=== PATIENT | male | born 1950 | race Caucasian/White ===

== ENCOUNTER 2021-12-29 08:31 | Outpatient (CLI) | payer MEDICARE, SELFPAY ==
--- NOTE | 2021-12-29 08:37 | RAD_ITS ---
STUDY: X-RAY - ABDOMEN/PELVIS REASON FOR EXAM: Male, 71 years old. Constipation TECHNIQUE: Single AP view of the abdomen / pelvis. COMPARISON: None. FINDINGS: There is a moderate amount of colonic fecal material. A single round density is seen in the cecum. The visualized liver, spleen and kidneys are grossly normal in size and morphology. There are calcified phleboliths in the pelvis. Normal visualized osseous structures. RAD/Abdomen Single View IMPRESSION: A circular marker is seen in the cecum. Electronically Signed: Elieser Maldonado MD at 9:20 EST ,
== END 2021-12-29 23:59 | disposition home or self-care (01) ==
PROVIDERS: PCP Family Medicine; Referring Provider Internal Medicine Gastroenterology; Visit Provider Internal Medicine Gastroenterology
DX: K59.00 Constipation, unspecified (principal)
CPT/HCPCS: 74018

== ENCOUNTER 2021-12-31 08:08 | Outpatient (CLI) | payer MEDICARE, SELFPAY ==
--- NOTE | 2021-12-31 08:25 | RAD_ITS ---
STUDY: X-RAY - ABDOMEN/PELVIS REASON FOR EXAM: Male, 71 years old. Estimation. TECHNIQUE: Two AP supine views of the abdomen and pelvis. COMPARISON: 12/29/2021. FINDINGS: Normal visualized lung bases. There is an unremarkable bowel gas pattern. Air is seen throughout the colon without evidence of increased feces. There is no small bowel dilatation or obstruction. There is no demonstrated free abdominal air. The visualized liver, spleen and kidneys are grossly normal in size and morphology. Phleboliths are again seen in the left pelvis. The small Sitz marker marker noted in the cecum on the previous study is no longer visualized. Normal visualized osseous structures. RAD/Abdomen Single View IMPRESSION: 1. No evidence of constipation or other acute intra-abdominal process. Electronically Signed: Andrea Hackett DO at 17:28 [facility] ,
== END 2021-12-31 23:59 | disposition home or self-care (01) ==
PROVIDERS: PCP Family Medicine; Referring Provider Internal Medicine Gastroenterology; Visit Provider Internal Medicine Gastroenterology
DX: K59.00 Constipation, unspecified (principal)
CPT/HCPCS: 74018

== ENCOUNTER 2022-02-02 11:51 | Day surgery (SDC) | payer MEDICARE, SELFPAY ==
--- NOTE | 2022-02-02 | COLBX_PTH ---
PATIENT: ROLANDO JETT LOC: EN U#:[id number] AGE/SX: 71/M ROOM: RE02/02/[address]: Dr. Isai Gutiérrez DO : 1950 BED: DIS: 02/02/2022 SPEC #: [id number] RECD: 02/02/22 14:34 STATUS: LACIE NBA #: [id number] ASHA: 02/02/22 00:[address]: Isai Gutiérrez DEPT: SURGICAL PATHOLOGY RECD BY: Daniel Hdz ENTERED: 02/03/22 07:54 SP TYPE: COLON BX OTHR DR: Dr. Roberto Gallo MD Tissues: A - Transverse colon B - COLON BIOPSY C - Sigmoid colon biopsy Procedures: Surgery Specimen Level IV HEADER OPERATION: Colonoscopy (MAC), polypectomy PRE-OP DIAGNOSIS: Constipation, history of colon polyps TISSUE SUBMITTED: A ? Transverse colon polyp, B ? Splenic flexure polyp, C ? Sigmoid polyp MICROSCOPIC DIAGNOSIS A. Transverse colon polyp, biopsy: Fragments of tubular adenoma. B. Colonic polyp at hepatic flexure, biopsy: Fragments of tubular adenoma. C. Sigmoid colon polyp, biopsy: Tubular adenoma. AM:chris 02/04/2022 MICROSCOPIC DESCRIPTION Slides are reviewed. GROSS DESCRIPTION A - Received in fixative is one container labeled with the patient's name and designated transverse colon polyp. The specimen consists of one irregular fragment of light jacobson soft tissue that measures 0.6 x 0.2 x 0.1 cm. The specimen is totally submitted in one cassette. B - Received in fixative is one container labeled with the patient's name and designated splenic flexure polyp. The specimen consists of multiple irregular fragments of light jacobson soft tissue that in aggregate measure 1 x 0.7 x 0.1 cm. The specimen is totally submitted in one cassette. C - Received in fixative is one container labeled with the patient's name and designated sigmoid polyp. The specimen consists of one irregular fragment of light jacobson soft tissue that measures 0.5 x 0.3 x 0.2 cm. The specimen is totally submitted in one cassette. / AM:chris 02/03/2022 TC:5 CPT: 98502 x3
[2022-02-02 12:20] VITALS: BP 146/76; PULSE 59; RESP 18; TEMP 36.4; O2SAT 100; BMI 31.1
[2022-02-02] MEDS: Lactated Ringers 1,000 ML 15 ML IV (12:30)
--- NOTE | 2022-02-02 12:34 | PCM.HP.BLA ---
History and Physical Date of Admission: 02/02/22 71 M who presents to the office today to establish care. Unfortunately he underwent a colonoscopy for surveillance purposes on 04/26/2021. He had 6 polyps which were removed. One of them was not completely removed. It was a single flat polyp 1 cm in diameter in the proximal transverse colon that was attempted to be removed with endoscopic lift procedure. Unfortunately he woke up during the procedure when he could not be sedated anymore due to his very low heart rate and he continued to do the procedure despite the anesthesiologist tell him not to. He has been having some intermittent abdominal pain sometimes in the midepigastric region. He gets gas buildup after eating. Most of the time he has trouble starting or finishing a meal due to the fact that he gets really bloated. He is also been having some problems with his bowels. He has been having trouble getting stool started. He is resorted to having to take a laxative and he never evacuates. He went to a chiropractor who told her that his symptoms were likely secondary to his back. He has no previous back injuries but he does get back pain. He underwent a few adjustments and it helped for about an hour but the symptoms came back right afterwards. He takes stool softener on a daily basis for fiber Gummies. He does not take any MiraLAX. He does not take any other fiber laxatives. ROS Const Constitutional: No anorexia, body ache, chills, excessive sweating, fatigue, fever(s), frequent falls, headache(s), decreased energy, malaise, night sweats, snoring, weakness, weight change, sleep problems, abnormal sleep pattern, change in appetite or other Eyes Eyes: No blurry vision, change in vision, double vision, irritation, discharge, vision loss, dry eyes, bulging eyes, floaters, visual disturbances, eye pain, Light sensitivity, spots in vision, tunnel vision or other ENT ENT: No abnormal hearing, ear or mastoid pain, ear discharge, ear pressure, hearing loss, tinnitus, dizziness/vertigo, balance problems, nosebleed/epistaxis, nasal congestion, nasal obstruction, nose pain, sinus pressure, sinus pain, nasal discharge, post nasal drip, headache(s), facial pain, dental pain, dry mouth, difficulty swallowing, bad breath, hoarseness, lip swelling, mouth lesions, mouth pain, neck pain, sore throat, tongue swelling, throat swelling or other Resp Respiratory: No cough, change in phlegm color, chest congestion, excessive phlegm production, hemoptysis, pain on inspiration, shortness of breath, pain with cough, snoring, stridor, wheezing or other Cardio Cardiology: No chest pain at rest, excessive sweating, shortness of breath, dyspnea on exertion, generalized swelling, irregular heart rhythm, lightheadedness, orthopnea, radiating jaw, neck or arm pain, fast heart rate, slow heart rate, palpitations, difficulty breathing or other Gastro GI: Positive for abdominal pain, bloating, change in bowel habits, constipation and excessive flatus; No difficulty swallowing Genitourinary Male: No difficulty urinating, burning urination, painful urination, urinary incontinence, urinary frequency, urinary urgency, urinary hesitancy, urinary retention, blood in urine, Frequent nighttime urination/ nocturia, post void dribbling, suprapubic fullness, side pain, sexual problems, genital lesions, genital itching, erectile dysfunction, penile discharge, difficulty with ejaculations, blood in semen, scrotal swelling, testicle lump, testicle pain or other Musc Musculoskeletal: Positive for back pain, stiffness and Arthritis; No abnormal gait, neck pain, numbness, tingling or restless legs Skin Skin: No acne, hair loss in leg, change in hair, nail changes, boil, change in skin color, dry skin, redness, excessive hair growth, yellowing of the eye, lesions, itchy eyes, rash, skin pain, skin ulcer, sores, skin swelling, wounds or other Breast Breast: No change in breast shape, breast lump, breast pain, breast skin changes, breast swelling, nipple discharge or other Neuro Neurology: No abnormal gait, abnormal hearing, abnormal movements, abnormal speech, behavioral changes, confusion, unsteady gait/balance, dizziness, weakness, frequent falls, headache(s), lack of coordination, loss of vision, memory loss, numbness, tingling, visual disturbances, restless legs, fainting, tremor(s), Increased tone in limbs, paralysis, seizures or other Psych Psychiatric: No abnormal sleep pattern, No lack of enjoyment, No anxiety, No behavioral changes, No change in appetite, No confusion, No depression, No difficulty concentrating, No hopelessness, No irritability, No memory loss, No mood swings, No panic attacks, No paranoia, No Thoughts of harming yourself/Others, No hallucinations, No Behavioral Problems, No Compulsive Behavior, No hyperactivity, No inattentiveness, No obsessions/compulsions, No Temper Tantrums, No suicidal ideation and No other Endo Endocrine: No excessive sweating, fatigue, weight change or other Aller/Imm Allergy/Immunologic: No itchy eyes, lip swelling, throat swelling, tongue swelling or wheezing Exam Const General: cooperative and comfortable Nutritional Appearance: average body habitus and well nourished [facility] Head: normal to inspection Ears: hearing grossly normal bilaterally Nose: external nose normal Face and sinus: normal facial exam Mouth: oral mucosae normal Throat: posterior oropharynx normal Eyes General: appearance normal, both eyes and all related structures Neck Neck: normal visual inspection Chest Chest palpation & inspection: normal inspection of the chest and normal palpation of entire chest wall Resp Effort & Inspection: normal respiratory effort Auscultation: Bilateral: Clear to Auscultation Cardio Palpation: normal PMI Rate: regular rate Rhythm: regular rhythm GI Inspection: normal to inspection and other (Ventral hernia) Auscultation: normal bowel sounds Percussion: normal to percussion Palpation: no hepatosplenomegaly Skin General: no rashes or lesions noted Neuro General: patient alert Extrem General: normal to inspection Psych Affect: normal affect Assessment and Plan Assessment and Plan (1) Constipation: Status: Acute Orders: Orders: Abdomen Single View 2 Days Plan - Dr. Alex Friend, DO: We will perform a sits marker test on him to see if he has slow transit constipation or pelvic floor dysfunction. I suspect that this low transit constipation as he can go to the bathroom he just takes a lot of osmotic laxatives. (2) History of colon polyps: Status: Acute Plan - Dr. Alex Friend, DO: He will need to have repeat colonoscopy within the next year. I told her a submucosal lift in order to remove. He has had antibiotic. That it is dangerous to leave a partially remove the polyp in his colon that needed Plan Details Other Medications: New: lidocaine 5% leave on most painful area for up to 12 hrs 3 patches topical DAILY 15 ea 2RF I have re-examined the patient. There are no clinical changes since date of exam.
[2022-02-02 14:25] VITALS: BP 130/61; BP 146/76; PULSE 86; RESP 16
[2022-02-02 14:30] VITALS: BP 133/63; BP 146/76; PULSE 82; RESP 16; O2SAT 100
[2022-02-02 14:35] VITALS: BP 132/71; BP 146/76; PULSE 80; RESP 17; O2SAT 100
[2022-02-02 14:39] VITALS: BP 127/64; BP 146/76; PULSE 76; RESP 16; TEMP 36.8; O2SAT 98
[2022-02-02 14:51] VITALS: BP 146/76
--- NOTE | 2022-02-02 15:01 | OP.CCLET_ITS ---
08/17/2022 Roberto Gallo Md Re : Colonoscopy procedure for Maxi Ji Dear Cleo This procedure was performed on Wednesday, February 02, 2022. My impressions and recommendations are as follows: Impressions : - One 9 mm polyp in the sigmoid colon, removed with a hot snare. Resected and retrieved. - One 15 mm polyp at the splenic flexure, removed with a hot snare. Resected and retrieved. Injected. Tattooed. - One 4 mm polyp in the ascending colon, removed with a jumbo cold forceps. Resected and retrieved. - Diverticulosis in the sigmoid colon and in the descending colon. Recommendations : - Discharge patient to home. - Resume previous diet. - Continue present medications. - Await pathology results. - Repeat colonoscopy in 3 years for surveillance. - Return to GI office. My findings are described in the full procedure note, which is enclosed. If I can be of further assistance, please feel free to contact me at . Sincerely, Isai Gutiérrez, 02/02/2022 3:00:21 PM This report has been signed electronically.
--- NOTE | 2022-02-02 15:01 | OP.COLON_ITS ---
Patient Name: Maxi Ji Procedure Date: 02/02/2022 1:34 PM Date of : 1950 Age: 71 Procedure: Colonoscopy Indications: Follow-up for history of adenomatous polyps in the colon Providers: Isai Gutiérrez DO Medicines: See the Anesthesia note for documentation of the administered medications Patient Profile: This is a 71 year old male. Refer to note in patient chart for documentation of history and physical. Last Colonoscopy: within the past 6 months. Complications: No immediate complications. Procedure: Pre-Anesthesia Assessment: - Prior to the procedure, a History and Physical was performed, and patient medications and allergies were reviewed. The patient is competent. The risks and benefits of the procedure and the sedation options and risks were discussed with the patient. All questions were answered and informed consent was obtained. Patient identification and proposed procedure were verified by the physician in the pre-procedure area. Mental Status Examination: alert and oriented. Airway Examination: normal oropharyngeal airway and neck mobility. Respiratory Examination: clear to auscultation. CV Examination: normal. Prophylactic Antibiotics: The patient does not require prophylactic antibiotics. Prior Anticoagulants: The patient has taken no previous anticoagulant or antiplatelet agents. ASA Grade Assessment: II - A patient with mild systemic disease. After reviewing the risks and benefits, the patient was deemed in satisfactory condition to undergo the procedure. The anesthesia plan was to use moderate sedation / analgesia (conscious sedation). Immediately prior to administration of medications, the patient was re-assessed for adequacy to receive sedatives. The heart rate, respiratory rate, oxygen saturations, blood pressure, adequacy of pulmonary ventilation, and response to care were monitored throughout the procedure. The physical status of the patient was re-assessed after the procedure. After I obtained informed consent, the scope was passed under direct vision. Throughout the procedure, the patient's blood pressure, pulse, and oxygen saturations were monitored continuously. The colonoscope was introduced through the anus and advanced to the cecum, identified by appendiceal orifice and ileocecal valve. The colonoscopy was performed without difficulty. The patient tolerated the procedure well. The quality of the bowel preparation was good. Moderate Sedation: Moderate (conscious) sedation was administered by the endoscopy nurse and supervised by the endoscopist. The following parameters were monitored: oxygen saturation, heart rate, blood pressure, and response to care. Total physician intraservice time was 15 minutes. Scope In: 1:45:50 PM Scope Withdrawal Time 0 hours 26 minutes 33 seconds Scope Out: 2:19:40 PM Total Procedure Duration Time 0 hours 33 minutes 50 seconds Findings: The perianal and digital rectal examinations were normal. A 9 mm polyp was found in the sigmoid colon. The polyp was sessile. The polyp was removed with a hot snare. Resection and retrieval were complete. Verification of patient identification for the specimen was done. Estimated blood loss was minimal. A 15 mm polyp was found in the splenic flexure. The polyp was sessile. Area was successfully injected with 5 mL of a 1:10,000 solution of epinephrine for lesion assessment, and this injection appeared to lift the lesion adequately. The polyp was removed with a hot snare. Resection and retrieval were complete. Area was tattooed with an injection of 0.4 mL of Ronda ink. A 4 mm polyp was found in the ascending colon. The polyp was sessile. The polyp was removed with a jumbo cold forceps. Resection and retrieval were complete. Verification of patient identification for the specimen was done. Estimated blood loss was minimal. A few small-mouthed diverticula were found in the sigmoid colon and descending colon. Impression: - One 9 mm polyp in the sigmoid colon, removed with a hot snare. Resected and retrieved. - One 15 mm polyp at the splenic flexure, removed with a hot snare. Resected and retrieved. Injected. Tattooed. - One 4 mm polyp in the ascending colon, removed with a jumbo cold forceps. Resected and retrieved. - Diverticulosis in the sigmoid colon and in the descending colon. Recommendation: - Discharge patient to home. - Resume previous diet. - Continue present medications. - Await pathology results. - Repeat colonoscopy in 3 years for surveillance. - Return to GI office. Procedure Code(s): --- Professional --- 40625, Colonoscopy, flexible; with removal of tumor(s), polyp(s), or other lesion(s) by snare technique 14004, Colonoscopy, flexible; with directed submucosal injection(s), any substance 02016, 59, Colonoscopy, flexible; with biopsy, single or multiple 26099, 59, Moderate sedation services provided by the same physician or other qualified health palliative care coordinator performing the diagnostic or therapeutic service that the sedation supports, requiring the presence of an independent trained observer to assist in the monitoring of the patient's level of consciousness and physiological status; initial 15 minutes of intraservice time, patient age 5 years or older CPT copyright 2017 [employer]. All rights reserved. The codes documented in this report are preliminary and upon cloth neutralizer review may be revised to meet current compliance requirements. Isai Gutiérrez DO 02/02/2022 3:00:21 PM This report has been signed electronically. Number of Addenda: 1 Note Initiated On: 02/02/2022 1:34 PM Addendum Number: 1 Addendum Date: 08/17/2022 6:26:28 AM MAC was used as sedation for this procedure. Isai Gutiérrez DO 08/17/2022 6:26:33 AM This report has been signed electronically.
== END 2022-02-02 23:59 | disposition home or self-care (01) ==
LOC: EN 11:54 → AC 11:54
PROVIDERS: PCP Family Medicine; Referring Provider Family Medicine; Visit Provider Internal Medicine Gastroenterology
PROC: 0DJD8ZZ Inspection of Lower Intestinal Tract, Via Natural or Artificial Opening Endoscopic (ICD-10-PCS; CPT 45378; principal; 2022-02-02 12:55)
DX: K57.30 Diverticulosis of large intestine without perforation or abscess without bleeding (principal); D12.3 Benign neoplasm of transverse colon; D12.5 Benign neoplasm of sigmoid colon; Z86.010 Personal history of colon polyps
CPT/HCPCS: 45385; 45381; 45380; 88305; J7120; A4648; J2405; J3490

== ENCOUNTER 2022-02-04 10:21 | Emergency (ER) | payer MEDICARE, SELFPAY ==
[2022-02-04 10:21] VITALS: BP 125/62; PULSE 67; RESP 18; TEMP 36.6; O2SAT 99; BMI 31.0
--- NOTE | 2022-02-04 11:41 | EX.ED.DYSGE1 ---
HPI History of Present Illness Chief Complaint: Abd Pain Narrative Narrative: Patient presents with difficulty urinating after colonoscopy. He has very little urine output and when he goes to the bathroom he does not feel like he empties fully. He has mild suprapubic pain. He has no back pain. He has no epigastric pain he has no shoulder pain. He recently had a work-up and appears he has some bladder dysfunction but no prostate issues. [facility] Medical History Alcohol use Arthritis Atrial fibrillation Back pain Back problem Cardiology follow-up encounter Constipation Former smoker Gastrointestinal problem High blood pressure History of atrial fibrillation History of colon polyps History of echocardiogram History of stress test Hypertension Home Medications amiodarone 200 mg tablet 200 mg PO BID 12/27/21 [History Last Taken Unknown] lidocaine 5 % topical patch 3 patch TOPICAL DAILY #15 ea 12/27/21 [Rx Last Taken Unknown] losartan 100 mg tablet 100 mg PO DAILY 12/27/21 [History Last Taken 02/02/22 06:00] metoprolol succinate 25 mg tablet,extended release 24 hr 25 mg PO DAILY 12/27/21 [History Last Taken Unknown] vibegron 75 mg tablet 75 mg PO DAILY 12/27/21 [History Last Taken Unknown] tamsulosin 0.4 mg capsule 0.4 mg PO DAILY #14 cap 02/03/22 [Rx Last Taken Unknown] Allergy/AdvReac Type Severity Reaction Status Date / Time No Known Allergies Allergy Verified 02/04/22 11:45 Family History Other No pertinent family history Surgical History Amputation of left thumb H/O arthroscopy of left knee History of arthroscopy of right knee History of skin graft Social History Smoking Status: Former smoker alcohol intake: current details: Beer 2 -3 a day substance use type: does not use what type of physical activity do you participate in: other details: leg stretches - toe touching frequency: 3-4 times per week ROS ROS ED ROS Narrative Past medical history: Reviewed Medications: Reviewed Social history: Noncontributory Review of systems: All systems negative except as indicated General: No fever Eyes: No visual changes ENT: No upper airway congestion, normal voice Neck: No neck pain Cardiovascular: No chest pain Respiratory: No shortness of breath or cough Gastrointestinal: As in HPI Genitourinary: As in HPI Musculoskeletal: Denies myalgias no difficulty with ambulation Skin: No rash Neurological: No memory loss, confusion or any focal weakness Psych: No recent behavioral changes Hematologic: No easy bleeding or easy bruising EXAM Physical Exam Narrative Exam Narrative: Physical exam General: Well nourished, Well developed, No Acute Distress Head: Normocephalic, Atraumatic Eyes: Conjunctiva not pale ENT: Moist mucous membranes Neck: Supple, Nontender, No lymphadenopathy Cardiovascular: Regular rate, Regular rhythm Respiratory: No distress, CTA bilaterally Abdomen: Soft, Nontender, does not have a suprapubic mass. No guarding or rebound. Normal external genitalia. Back: Nontender, Normal Inspection. Negative for: CVA tenderness Extremities: Nontender, No edema Skin: Normal color, No rash Neurological: Alert, Normal Strength, Normal Sensation Psychological: Normal affect Const Vital Signs: 02/04/22 10:21 02/04/22 12:29 Temperature 97.9 F Temperature Source Temporal Pulse Rate 67 Respiratory Rate 18 18 Blood Pressure 125/62 H Blood Pressure Mean 83 Pulse Ox 99 Oxygen Delivery Method Room Air MDM MDM MDM Narrative Medical decision making narrative: Patient has no retention on bladder scan. His urinalysis is overall unremarkable. He has a normal KUB. I reexamined him he has no abdominal pain. Patient be discharged in stable condition. Lab Data Labs: Laboratory Results - last 24 hr 02/04/22 13:15 Urine Color Yellow Urine Clarity Clear Urine pH 5.0 Ur Specific [place] 1.020 Urine Protein Negative Urine Glucose (UA) Normal Urine Ketones Negative Urine Occult Blood Negative Urine Nitrite Negative Urine Bilirubin Negative Urine Urobilinogen Normal Ur Leukocyte Esterase 25 H Urine RBC 0 SEEN Urine WBC 0 SEEN Ur Squamous Epith Cells 0 SEEN Urine Bacteria 0 SEEN Urine Mucus 0 SEEN Radiography Diagnostic Testing: Clinical Impression(s) from Imaging Studies KUB X-Ray 02/04/22 12:35 IMPRESSION: Normal x-ray examination of the abdomen and pelvis. Stable appearance. Electronically Signed: Glen Nettles MD at 12:53 EDT Reading Location ID and State: [facility] / [place] , Service support , X-ray read by me and radiologist is negative for any acute process Discharge Plan Triage Chief Complaint: Abd Pain Other Complaint: Complaint ED Provider: Maxi Jones Dx/Rx/DC Orders Clinical Impression: Dysuria Instructions: ED Dysuria, Uncertain Cause (Adult) Prescriptions: No Action metoprolol succinate 25 mg tablet extended release 24 hr 25 mg PO DAILY RF: 0 losartan 100 mg tablet 100 mg PO DAILY RF: 0 amiodarone 200 mg tablet 200 mg PO BID RF: 0 Gemtesa 75 mg tablet 75 mg PO DAILY RF: 0 lidocaine 5 % adhesive patch,medicated 3 patch topical DAILY Qty: 15 RF: 2 tamsulosin [Flomax] 0.4 mg capsule 0.4 mg PO DAILY Qty: 14 RF: 0 Primary Care Provider: Roberto Gallo Referrals: Roberto Gallo MD [Primary Care Provider] - 2 Days Disposition Disposition: Home, Self Care
[2022-02-04 12:29] VITALS: RESP 18
--- NOTE | 2022-02-04 12:35 | RAD_ITS ---
STUDY: X-RAY - ABDOMEN/PELVIS REASON FOR EXAM: Male, 71 years old. Constipation TECHNIQUE: Two AP supine views of the abdomen and pelvis. COMPARISON: December 31, 2021. FINDINGS: Normal visualized lung bases. There is an unremarkable bowel gas pattern. There is no demonstrated free abdominal air. There are calcified phleboliths in the pelvis. Normal visualized osseous structures. RAD/Abdomen Single View IMPRESSION: Normal x-ray examination of the abdomen and pelvis. Stable appearance. Electronically Signed: Glen Nettles MD at 12:53 EDT ,
[2022-02-04 13:23] LABS: Bacteria 0 SEEN /hpf (None Seen); Mucous, Urine 0 SEEN /hpf (<or=2+); Red Blood Cells-Urine 0 SEEN /hpf (0-5); Squamous Epithelial Cells - UA 0 SEEN /hpf (0-5); White Blood Cells 0 SEEN /hpf (0-5)
[2022-02-04 13:25] LABS: Color, Urine Yellow (Yellow); Glucose, Dipstick Normal (Normal); Ketone-Dipstick Negative (Negative); Leukocyte Esterase-Dipstick 25 /ul (Negative); Nitrite-Dipstick Negative (Negative); Occult Blood-Urine Negative /ul (Negative); Protein-Dipstick Negative (Negative); Urine Bilirubin Dipstick Negative (Negative); Urine Clarity Clear (Clear); Urine Urobilinogen Normal (Normal)
[2022-02-04 14:23] VITALS: BP 132/72; PULSE 67; RESP 16; TEMP 36.9; O2SAT 98
[2022-02-04 14:26] VITALS: RESP 18
== END 2022-02-04 14:26 | disposition home or self-care (01) ==
PROVIDERS: Emergency Provider Emergency Medicine; PCP Family Medicine; Visit Provider Emergency Medicine
DX: R30.0 Dysuria (principal); I48.91 Unspecified atrial fibrillation; R10.2 Pelvic and perineal pain; I10 Essential (primary) hypertension; Z79.899 Other long term (current) drug therapy; M19.90 Unspecified osteoarthritis, unspecified site; Z87.891 Personal history of nicotine dependence
CPT/HCPCS: 74018; 81001; 99282

== ENCOUNTER 2022-07-09 17:24 | Emergency (ER) | payer MEDICARE, SELFPAY ==
[2022-07-09] VITALS (7 sets, daily range): BP systolic 118–168; BP diastolic 70–78; PULSE 58–71; RESP 15–16; TEMP 36.6; O2SAT 97–98; BMI 33.3
--- NOTE | 2022-07-09 17:39 | EKG12_ITS ---
Test Reason : CP Blood Pressure : / mmHG Vent. Rate : 065 BPM Atrial Rate : 065 BPM P-R Int : 190 ms QRS Dur : 104 ms QT Int : 462 ms P-R-T Axes : 033 041 021 degrees QTc Int : 480 ms Normal sinus rhythm Prolonged QT Abnormal ECG Confirmed by GIFTY KNIGHT, ROLANDO ([id number]), photograph editor INDIO NAVARRO ([id number]) on 07/12/2022 7:58:45 AM Referred By: GAGE Confirmed By:ROLANDO DURBIN MD
--- NOTE | 2022-07-09 17:41 | NURSING ---
NO OLD EKGS
--- NOTE | 2022-07-09 17:41 | ED.VIS.CHEST ---
HPI History of Present Illness Chief Complaint: Chest Pain Detail of Chief Complaint: Chest pain started approximately 8 AM Informant: patient Narrative Narrative: Patient presents to the emergency department with complaint of chest pain that started around 8 AM this morning while at rest. He describes a dull ache and pressure that tends to radiate towards her left shoulder. He denies radiation to the neck or jaw. Patient denies shortness of breath. He denies diaphoresis. He denies nausea or vomiting. Patient tells me the pains are continuously. He rates it a 5 out of 10. Patient states that he did mow his lawn today on the riding mower and activity did not seem exacerbated. Patient thinks he had discomfort like this 1 other time but no etiology was found for it. There is no significant family history of heart disease. Patient does have history of hypertension and history of A. fib. He is not anticoagulated. He denies recent travel or surgery. He denies history of PE or DVT. Prior Similar Symptoms: Yes [facility] Medical History Alcohol use Arthritis Atrial fibrillation Back pain Back problem Cardiology follow-up encounter Constipation Former smoker Gastrointestinal problem High blood pressure History of atrial fibrillation History of colon polyps History of echocardiogram History of stress test Hypertension Home Medications amiodarone 200 mg tablet 200 mg PO BID 12/27/21 [History Last Taken Unknown] losartan 100 mg tablet 100 mg PO DAILY 12/27/21 [History Last Taken 02/02/22 06:00] metoprolol succinate 25 mg tablet,extended release 24 hr 25 mg PO DAILY 12/27/21 [History Last Taken Unknown] vibegron 75 mg tablet (Gemtesa) 75 mg PO DAILY 12/27/21 [History Last Taken Unknown] bisacodyl 5 mg tablet,delayed release (Dulcolax (bisacodyl)) 5 mg PO DAILY 07/05/22 [History Last Taken Unknown] silodosin 8 mg capsule 8 mg PO DAILY 07/05/22 [History Last Taken Unknown] oxybutynin chloride 10 mg tablet,extended release 24 hr 10 mg PO DAILY 07/09/22 [History Last Taken Unknown] Allergy/AdvReac Type Severity Reaction Status Date / Time No Known Allergies Allergy Verified 07/09/22 17:24 Family History (Updated 07/05/22 @ 08:43 by Hannah Chavez) Sister Cancer stomach Other No pertinent family history Surgical History Amputation of left thumb H/O arthroscopy of left knee History of arthroscopy of right knee History of skin graft Social History Smoking Status: Former smoker alcohol intake: current details: Beer 2 -3 a day substance use type: does not use what type of physical activity do you participate in: other details: leg stretches - toe touching frequency: 3-4 times per week ROS ROS ED Review of Systems ROS Unobtainable: other Constitutional Constitutional ED: Reports lethargy; Denies chills, fever(s), sweats or weight loss Eyes Eyes: Denies blurry vision, change in vision or diplopia ENT ENT ED: Denies rhinorrhea or sore throat Cardiovascular Cardiovascular: Reports chest pain; Denies orthopnea or racing heartbeat Respiratory/Chest Respiratory/Chest: Denies cough, dyspnea, dyspnea on exertion, orthopnea or sputum Gastrointestinal Gastrointestinal: Denies abdominal pain, diarrhea, nausea or vomiting Genitourinary Genitourinary ED: Denies dysuria, hematuria or urinary frequency Musculoskeletal Musculoskeletal: Denies arthralgias, back pain, myalgias or neck pain Integumentary Denies abscess, Abrasions or rash Neurologic Neurologic: Denies headache(s) or weakness Psychiatric Psychiatric: Denies anxiety, depression or suicidal thoughts Endocrine Endocrinology: Denies polydipsia, polyphagia or polyuria Hematologic/Lymphatic Hematologic/Lymphatic: Denies easy bleeding, easy bruising or lymphadenopathy Allergic/Immunologic Allergic/Immunologic ED: Denies mouth swelling, tongue swelling or urticaria EXAM Physical Exam Const Vital Signs: 07/09/22 17:25 07/09/22 17:27 07/09/22 17:40 Temperature 97.9 F Temperature Source Oral Pulse Rate 71 Respiratory Rate 16 Respiratory Effort Normal Non-Labored Blood Pressure 158/78 H Blood Pressure Mean 104 Pulse Ox 97 98 Oxygen Delivery Method Room Air Room Air 07/09/22 17:55 07/09/22 18:00 07/09/22 18:05 Temperature Temperature Source Pulse Rate 60 63 60 Respiratory Rate Respiratory Effort Blood Pressure 168/72 H 134/76 H 118/70 Blood Pressure Mean Pulse Ox Oxygen Delivery Method Positive well nourished and well developed General Appearance ED: well developed and NAD HEENT Reports TM's clear and moist mucous membranes normocephalic and atraumatic; Negative for trauma or tenderness Tympanic Membrane ED: Yes TM's clear Eyes PERRL and EOMs intact bilaterally General Eye ED: Negative for pale conjunctiva or scleral icterus Neck no lymphadenopathy, supple and no JVD General: Negative for tenderness Chest Wall inspection of chest normal and palpation of chest normal Chest: Negative for tenderness Resp normal respiratory effort and clear to auscultation bilaterally Effort and Inspection: Negative for respiratory distress or pain with movement Auscultation: Negative for rhonchi, wheezes or diminished lung sounds Cardio regular rate, regular rhythm, S1 normal heart sound, S2 normal heart sound and no murmurs Peripheral Pulses: pulses 2+ throughout GI normal to inspection, nondistended, normoactive bowel sounds, soft to palpation, non-tender, non-distended and no masses Back/Spine no CVA tenderness and no thoracic nor lumbar tenderness Extremity normal to inspection General Extremety ED: Negative for edema General Extremity: Negative for edema Neuro oriented x3, CN's II-XII intact bilaterally, no sensory deficits noted and gait normal Sensorium / Orientation: awake, alert, oriented to person, oriented to place and oriented to time Motor Exam: strength 5/5 throughout and strength abnormal Psych mental status grossly normal Skin no rashes or lesions noted and no wounds Heart Score History: Slightly/Non-Suspicious ECG: Normal Age: >/= 65 years Risk Factors: 1 or 2 Risk Factors Troponin: </= Normal Limit Score: 3 MDM MDM MDM Narrative Medical decision making narrative: Line established on arrival. Chemistries were unremarkable. Troponin was 5. D-dimer was normal at 0.48. Chest x-ray unremarkable. I did give patient aspirin on arrival in the emergency department and he received sublingual nitro which really did not seem to make much difference in his chest discomfort. Patient has a heart score of 3. My suspicion is low for acute coronary syndrome given that he has had ongoing pain for approximately 10 hours with normal EKG and normal troponin. Patient advised to follow-up with primary care physician 3 to 5 days. He tells me had a stress test about a year and a half ago that was unremarkable. Patient advised to return to the ER if worsening pain, exertional symptoms, or condition should worsen anyway. Lab Data Attestation: I reviewed the patient's lab results. Labs: Laboratory Results - last 24 hr 07/09/22 07/09/22 07/09/22 17:30 17:30 17:30 WBC 8.0 RBC 4.90 Hgb 15.2 Hct 44.7 MCV 91.2 MCH 31.0 MCHC 34.0 RDW Std Deviation 43.3 RDW Coeff of Miles 13.0 Plt Count 177 MPV 10.0 Immature Gran % (Auto) 0.700 Neut % (Auto) 62.2 Lymph % (Auto) 24.3 Tama % (Auto) 11.0 H Eos % (Auto) 1.4 Baso % (Auto) 0.4 Absolute Neuts (auto) 5.0 Absolute Lymphs (auto) 1.95 Nucleated RBC % 0 D-Dimer Quant (PE/DVT) 0.48 Sodium 140 Potassium 4.0 Chloride 107 Carbon Dioxide 26.0 Anion Gap 7 BUN 16 Creatinine 1.40 H Estim Creat Clear Calc 53.12 Est GFR (MDRD) Af Amer 64 Est GFR (MDRD) Non-Af 53 L BUN/Creatinine Ratio 11.4 Glucose 134 H Calcium 9.4 Troponin I High Sens 5 Radiography Chest X-Ray - ED: 1 View Diagnostic Testing: Clinical Impression(s) from Imaging Studies Chest X-Ray 07/09/22 18:10 IMPRESSION: There are no acute findings. Electronically Signed: Warner Thomas MD at 18:47 EDT Reading Location ID and State: [facility] [place] / [place] , Service support , 1 view chest x-ray obtained interpreted by myself no acute disease process. Radiology in agreement. EKG Initial EKG: Attestation: I personally reviewed and interpreted this EKG as follows: Comments: Sinus rhythm with a ventricular rate of of 65 bpm with no acute ST segment changes Discharge Plan Triage Chief Complaint: Chest Pain ED Provider: Rony Rodas Dx/Rx/DC Orders Clinical Impression: Chest pain Instructions: ED Chest Pain, Uncertain Cause Prescriptions: No Action metoprolol succinate 25 mg tablet extended release 24 hr 25 mg PO DAILY losartan 100 mg tablet 100 mg PO DAILY amiodarone 200 mg tablet 200 mg PO BID Gemtesa 75 mg tablet 75 mg PO DAILY silodosin 8 mg capsule 8 mg PO DAILY Rx Instructions: must administer with a meal/food bisacodyl [Dulcolax (bisacodyl)] 5 mg tablet,delayed release (DR/EC) 5 mg PO DAILY oxybutynin chloride 10 mg Tablet Extended Release 24hr 10 mg PO DAILY Primary Care Provider: Ivan Murphy Referrals: Ivan Murphy MD [Primary Care Provider] - 3-5 Days Disposition Disposition: Home, Self Care
[2022-07-09] MEDS: Aspirin 81 MG TAB.CHEW 324 MG PO (17:46)
[2022-07-09] MEDS: 0.9% Normal Saline 1,000 ML 150 ML IV (17:55)
[2022-07-09] MEDS: Nitroglycerin SL (ED/IMG/CATH) 0.4 MG TABLET SL ×3 (17:55→18:05)
[2022-07-09 17:59] LABS: Absolute Lymphocyte Count 1.95 X10^3/uL (0.83-4.51); Basophil# 0.03 X10^3/uL; Basophil% 0.4 % (0-1); Eosinophil# 0.11 X10^3/uL; Eosinophils% 1.4 % (0-5); Hematocrit 44.7 % (40-54); Hemoglobin 15.2 g/dL (13.0-16.5); Lymphocyte # 1.95 X10^3/ul (0.83-4.51); Lymphocyte % 24.3 % (19-41); Mean Corpuscular Volume 91.2 fL (80-94); Monocyte# 0.88 X10^3/uL; NRBC Flagged by Analyzer 0 % (0-5); Neutrophil % 62.2 % (47-70); Platelet Count 177 K/mm3 (150-450); RBC Distribution Width SD 43.3 fl (35.1-43.9)
[2022-07-09 18:01] LABS: D-Dimer Quantitative (DVT/PE) 0.48 FEU/ug/m (0.27-0.49)
[2022-07-09 18:04] LABS: Anion Gap 7 (5-15); BUN 16 mg/dL (7-18); BUN/Creat Ratio 11.4 RATIO (10-20); Calcium,Total 9.4 mg/dL (8.5-10.1); Chloride 107 mmol/L (98-107); EST Glomerular Filtration Rate 53 mL/min (>60); Est Glom Filt Rate - Afr Amer 64 mL/min (>60); Estimated Creatinine Clearance 53.12 ml/min; Glucose 134 mg/dL (74-106); Sodium Level 140 mmol/L (136-145); Troponin-I HS (w/2H Reflex) 5 pg/mL (3.0-78.0)
--- NOTE | 2022-07-09 18:10 | RAD_ITS ---
STUDY: X-RAY CHEST REASON FOR EXAM: Male, 71 years old. CHEST PAIN chest pain TECHNIQUE: XR Chest 1 View COMPARISON: None FINDINGS: There is no demonstrated pleural abnormality. Normal size heart. Normal mediastinum and diana. Normal visualized pulmonary arteries. Normal visualized aortic arch and descending thoracic aorta. There are diffuse degenerative changes of the visualized thoracic spine. Normal visualized ribs, clavicles, and shoulders. There is no demonstrated abnormality of the visualized soft tissue structures of the upper abdomen. RAD/Chest 1 View (Portable) IMPRESSION: There are no acute findings. Electronically Signed: Warner Thomas MD at 18:47 EDT ,
[2022-07-09 19:44] LABS: Reflex Troponin-HS? (from REC) Y
== END 2022-07-09 19:31 | disposition home or self-care (01) ==
PROVIDERS: Emergency Provider Emergency Medicine; PCP Internal Medicine; Visit Provider Emergency Medicine
DX: R07.9 Chest pain, unspecified (principal); I10 Essential (primary) hypertension; Z79.899 Other long term (current) drug therapy; Z87.891 Personal history of nicotine dependence
CPT/HCPCS: 71045; 80048; 84484; 85025; 85379; 93005; 96360; 99283; J7030

== ENCOUNTER → 2022-07-26 | Outpatient (CLI) | payer MEDICARE, SELFPAY ==
[2022-07-26 12:54] LABS: Cholesterol 222 mg/dL (200); High Density Lipoprotein 69 mg/dL; Triglycerides 131 mg/dL; Very Low Density Lipoprotein 26 mg/dL (5-40)
== END | disposition home or self-care (01) ==
LOC: BIMLAB 09:22
PROVIDERS: PCP Internal Medicine; Referring Provider Internal Medicine; Visit Provider Internal Medicine
DX: I10 Essential (primary) hypertension (principal)
CPT/HCPCS: 36415; 80061

== ENCOUNTER → 2022-08-29 | Outpatient (CLI) | payer MEDICARE, SELFPAY ==
[2022-08-29 17:40] LABS: PSA,Total - Annual Screen 0.24 ng/mL (0.00-4.00)
== END | disposition home or self-care (01) ==
LOC: LAB 16:55
PROVIDERS: PCP Internal Medicine; Referring Provider Urology; Visit Provider Urology
DX: Z12.5 Encounter for screening for malignant neoplasm of prostate (principal)
CPT/HCPCS: 36415; 84153; G0103

== ENCOUNTER → 2022-11-03 | Outpatient (CLI) | payer MEDICARE, SELFPAY ==
[2022-11-03 11:19] LABS: Erythrocyte Sedimentation Rate 16 mm/hr (0-20)
[2022-11-03 11:21] LABS: Absolute Lymphocyte Count 1.34 X10^3/uL (0.83-4.51); Absolute Neutrophil Count 4.9 X10^3/uL (2.0-7.7); Basophil# 0.04 X10^3/uL; Basophil% 0.5 % (0-1); Eosinophil# 0.27 X10^3/uL; Eosinophils% 3.7 % (0-5); Hematocrit 47.2 % (40-54); Hemoglobin 16.3 g/dL (13.0-16.5); Lymphocyte # 1.34 X10^3/ul (0.83-4.51); Lymphocyte % 18.1 % (19-41); Mean Corp Hgb Conc 34.5 g/dL (32-36); Mean Corpuscular Hgb 31.7 pg (27.0-32.0); Mean Corpuscular Volume 91.8 fL (80-94); Mean Platelet Vol. 9.8 fl (6.2-12.0); Monocyte# 0.79 X10^3/uL; Monocyte% 10.7 % (0-10); NRBC Flagged by Analyzer 0 % (0-5); Neutrophil # 4.92 X10^3/uL (2.7-7.7); Neutrophil % 66.6 % (47-70); Platelet Count 186 K/mm3 (150-450); RBC Distribution Width CV 12.7 % (11.6-14.6); RBC Distribution Width SD 42.5 fl (35.1-43.9); Red Blood Count 5.14 M/mm3 (4.6-6.2); White Blood Count 7.4 K/mm3 (4.4-11.0)
[2022-11-03 11:26] LABS: International Normalized Ratio 1.1; Prothrombin Time (Protime)PT. 13.4 SECONDS (11.7-14.9)
[2022-11-03 11:53] LABS: ALB/GLOB Ratio 0.9 RATIO (0.9-2.4); AST(SGOT) 119 U/L (15-37); Alanine Aminotransfer ALT/SGPT 190 U/L (16-61); Albumin, Serum 3.6 g/dL (3.2-5.0); Alkaline Phosphatase 90 U/L (45-117); Amylase 47 U/L (25-115); Anion Gap 3 (5-15); BUN 13 mg/dL (7-18); BUN/Creat Ratio 10.7 RATIO (10-20); Calcium,Total 9.1 mg/dL (8.5-10.1); Chloride 105 mmol/L (98-107); Creatinine, Serum 1.21 mg/dL (0.70-1.30); EST Glomerular Filtration Rate 63 mL/min (>60); Est Glom Filt Rate - Afr Amer 76 mL/min (>60); Ferritin 962 ng/mL (26-388); GGTP 84 U/L (15-85); Globulin 3.8 g/dL (2.2-4.2); Glucose 78 mg/dL (74-106); LDH 235 U/L (87-241); Lipase 185 U/L (73-393); Potassium 3.9 mmol/L (3.5-5.1); Protein, Total 7.4 g/dL (6.4-8.2); Sodium Level 138 mmol/L (136-145)
[2022-11-04 15:08] LABS: Endomysial Antibody IgA Negative (Negative)
[2022-11-04 15:49] LABS: Immunoglobulin A 158 mg/dL (61-437); t-Transglutaminase IgA <2 U/mL (0-3)
[2022-11-04 16:08] LABS: Anti-Centromere B Ab <0.2 AI (0.0-0.9); Anti-Chromatin <0.2 AI (0.0-0.9); Anti-Jo <0.2 AI (0.0-0.9); Anti-Scleroderma-70 AB <0.2 AI (0.0-0.9); RNP Ab <0.2 AI (0.0-0.9); SJOGREN'S Anti-SS-A test < 0.2 AI (0.0-0.9); SJOGREN'S Anti-SS-B test < 0.2 AI (0.0-0.9); Smith Ab <0.2 AI (0.0-0.9)
[2022-11-04 20:52] LABS: Anti-Mitochondrial AB <20.0 Units (0.0-20.0); Anti-dsDNA Ab <1 IU/mL (0-9)
[2022-11-08 07:07] LABS: Albumin 3.8 g/dL (2.9-4.4); Alpha-1-Globulins 0.3 g/dL (0.0-0.4); Alpha-2-Globulins 0.9 g/dL (0.4-1.0); Angiotensin Convert Enzyme 58 U/L (14-82); Ceruloplasmin 13.2 mg/dL (16.0-31.0); Cytoplasmic Ab (C-ANCA) <1:20 titer (Neg:<1:20); Gamma Globulin 0.8 g/dL (0.4-1.8); HEPATITIS B SURFACE AG Negative (Negative); Hep C Antibodies <0.1 s/co ratio (0.0-0.9); Hepatitis A IgM Antibody Negative (Negative); Hepatitis B Core AB IgM Negative (Negative); Immunoglobulin A 153 mg/dL (61-437); Immunoglobulin E 10 IU/mL (6-495); Immunoglobulin G 843 mg/dL (603-1613); Immunoglobulin M 49 mg/dL (15-143); PROEL- TOTAL PROTEIN 6.8 g/dL (6.0-8.5)
[2022-11-09 14:37] LABS: Anti-Smooth Muscle ABS 6 Units (0-19); Haptoglobin 176 mg/dL (34-355)
[2022-11-09 14:38] LABS: Copper, Serum or Plasma 65 ug/dL (69-132); IMMUNOFIXATION RESULT,S Comment: (.); Perinuclear Ab (P-ANCA) <1:20 titer (Neg:<1:20)
== END | disposition home or self-care (01) ==
LOC: LAB 10:53
PROVIDERS: PCP Internal Medicine; Referring Provider Nurse Practitioner Adult Health; Visit Provider Nurse Practitioner Adult Health
DX: R74.8 Abnormal levels of other serum enzymes (principal); R10.9 Unspecified abdominal pain; R07.9 Chest pain, unspecified
CPT/HCPCS: 36415; 80053; 80074; 82140; 82150; 82164; 82390; 82525; 82728; 82784; 82785; 82977; 83010; 83516; 83615; 83690; 84165; 85025; 85610; 85652; 86140; 86225; 86235; 86255; 86256; 86334

== ENCOUNTER → 2022-11-04 | Outpatient (CLI) | payer MEDICARE, SELFPAY ==
[2022-11-07 19:03] LABS: Fats, Neutral Normal (.); Fats, Total Normal (.); Pancreatic Elastase, Fecal 314 (>200)
== END | disposition home or self-care (01) ==
LOC: MTLAB 08:59
PROVIDERS: PCP Internal Medicine; Referring Provider Nurse Practitioner Adult Health; Visit Provider Nurse Practitioner Adult Health
DX: R10.9 Unspecified abdominal pain (principal); R07.9 Chest pain, unspecified; R74.8 Abnormal levels of other serum enzymes
CPT/HCPCS: 82653; 82705

== ENCOUNTER → 2022-11-18 | Outpatient (CLI) | payer MEDICARE, SELFPAY ==
--- NOTE | 2022-11-18 07:21 | US_ITS ---
STUDY: ABDOMINAL ULTRASOUND - RIGHT UPPER QUADRANT REASON FOR VISIT: Male, 72 years old post prandial chest pain -- ruq TECHNIQUE: Ultrasound evaluation of the right upper quadrant was performed with real-time and static vega-scale imaging. TECHNICAL QUALITY: Adequate. COMPARISON: CT abdomen and pelvis November 18, 2022 at 10:02 AM FINDINGS: Liver: The liver measures 13.5 cm. There is normal echogenicity of the liver. The bile ducts are within normal limits. There is hepatic color flow. The direction of portal flow is hepatopetal. There is no demonstrated mass lesion. Gallbladder: Normal distended gallbladder. The gallbladder wall measures 2.3 mm. There is a negative sonographic Cagle''s sign. There is no pericholecystic fluid. On one view there is a suggestion of possible artifact versus trace sludge in the gallbladder. There are no visualized ultrasound visualized stones. Common Bile Duct (C.B.D.): The common bile duct measures 6 mm. Pancreas: Normal size of the head, body and tail of the pancreas. There is normal echogenicity of the pancreas. There is no demonstrated pancreatic mass or cyst. Right Kidney: Normal size of the right kidney. The right kidney measures 12.0 x 5.4 x 6.8 cm. Normal renal cortex. The right cortex measures 1.1 cm. Measured at the radiologist workstation. There is no demonstrated renal mass or cyst. There is no right hydronephrosis. US/Abdomen Limited IMPRESSION: Minimal sludge in the gallbladder. No visualized pericholecystic fluid. The sonographic Cagle''s sign is described as negative. No ultrasound evidence of cholecystitis. Borderline distention of the common duct within normal limits for patient''s age. No visualized hydronephrosis. Electronically Signed: Mayuri Estrada MD at 10:38 EST ,
--- NOTE | 2022-11-18 07:21 | CT_ITS ---
ACR Level 3 findings have been noted. An addendum which confirms receipt of the report will follow. INDICATION: lower abd pain -- oral and iv EXAMINATION: CT Abdomen And Pelvis W/ Contrast Injection TECHNIQUE: Helically acquired images were obtained of the abdomen and pelvis after IV contrast. A radiation dose optimization technique was used for this scan. IV Contrast dosage and agent: IV 100mL Isovue-300 Oral contrast: None. COMPARISON: None. FINDINGS: Visualized lung bases: Unremarkable Liver: Mild periportal edema. Gallbladder: Unremarkable Spleen: Unremarkable Pancreas: Unremarkable Adrenal Glands: Unremarkable Kidneys: Unremarkable Vasculature: Mild scattered aortoiliac atherosclerotic calcifications. GI Tract: Scattered diverticula throughout the colon without evidence of inflammation. Lymphadenopathy: None Peritoneum: No ascites. Bladder: Mild circumferential wall thickening with subtle surrounding inflammatory changes. Reproductive organs: The prostate is mildly enlarged. Bones/Soft tissues: Mild scattered degenerative changes of the visualized spine. CT/Abdomen/Pelvis WITH Contrast IMPRESSION: Findings suspicious for cystitis. Correlate with urinalysis. Electronically Signed: Ghulam Montoya MD at 16:54 EST ,
== END | disposition home or self-care (01) ==
LOC: CT 07:19
PROVIDERS: PCP Internal Medicine; Referring Provider Nurse Practitioner Adult Health; Visit Provider Nurse Practitioner Adult Health
DX: R07.9 Chest pain, unspecified (principal); K83.8 Other specified diseases of biliary tract; R10.9 Unspecified abdominal pain; R74.8 Abnormal levels of other serum enzymes
CPT/HCPCS: 74177; 76705; Q9967

== ENCOUNTER → 2022-12-13 | Outpatient (CLI) | payer MEDICARE, SELFPAY ==
--- NOTE | 2022-12-13 09:55 | NM_ITS ---
CLINICAL: 72-year-old male with history of postprandial right upper quadrant abdominal pain. RADIONUCLIDE HEPATOBILIARY SCINTIGRAPHY COMPARISON: Abdominal ultrasound and CT of the abdomen pelvis reports 11/18/2022 FINDINGS: Following the intravenous administration of 5.3 mCi of 99m Tc Mebrofenin, hepatobiliary images reveal: 1. Relatively prompt and homogeneous radiopharmaceutical concentration is noted by a normal sized liver. No parenchymal defects are identified. 2. Gallbladder activity is identified at 15 minutes post radiopharmaceutical administration. 3. Small intestinal tract is observed at 15 minutes following tracer injection. 4. Washout of the radiopharmaceutical by the hepatic parenchyma occurs in a normal fashion on qualitative inspection. Cholecystokinin (0.02 ug/kg) was administered intravenously over a 30-minute period. The post CCK gallbladder ejection fraction calculated at 29 minutes following Cholecystokinin administration was noted to be 49.0 % (normal greater than 35%). During 30 minutes of post CCK imaging, there is no scintigraphic evidence of reflux of the radiotracer into the common hepatic duct or refilling of the gallbladder. There is subtle post cholecystokinin duodenal-gastric reflux. NM/Hepatobilliary Img w/Pharm Int IMPRESSION: 1. A gallbladder ejection fraction calculated to be greater than 35% following the administration of Cholecystokinin makes the probability of functional hepatobiliary disease (gallbladder and/or sphincter of Oddi dyskinesia) and/or organic hepatobiliary disease (chronic acalculous cholecystitis and/or cystic duct syndrome) to be low. (Maame Andersen et al, Journal of Nuclear Medicine 32:1695, 1991). 2. There is scintigraphic evidence of post CCK duodenal-gastric reflux as described above. Electronically Signed: Rodolfo Lemus, at 14:21 EST ,
== END | disposition home or self-care (01) ==
LOC: NM 09:54
PROVIDERS: PCP Internal Medicine; Referring Provider Nurse Practitioner Adult Health; Visit Provider Nurse Practitioner Adult Health
DX: R10.12 Left upper quadrant pain (principal)
CPT/HCPCS: 78227; A9537; J2805

== ENCOUNTER 2023-01-02 06:08 | Day surgery (SDC) | payer MEDICARE, SELFPAY ==
[2023-01-02] VITALS (7 sets, daily range): BP systolic 92–140; BP diastolic 58–70; PULSE 53–55; RESP 16; TEMP 36.2–36.4; O2SAT 93–98; BMI 30.4
--- NOTE | 2023-01-02 06:31 | HP.PCM_ITS ---
History and Physical Date of Admission: 01/02/23 2 M who presents to the office today for elevated liver enzymes, discovered by mergers and acquisitions consultant. 09/23/22 AST 138, ALT 203. 10/28/22 AST 115, ALT 164. 10/31/22 AST 121, ALT 172. Taken off amiodarone because of elevated liver enzymes as well as possible thyroid issue. Bilirubin, alk phos, albumin have been normal. We last saw him on 02/25/22 for chronic constipation. He had tubular adenomas on colonoscopy; Dr Gutiérrez recommended repeat colonoscopy in 01/2025. He is accompanied by his . Their main concern is ongoing left sided chest pain. Cardiology has ruled out cardiac cause for the pain.? Has f/u with mergers and acquisitions consultant Dr Garcia tomorrow.? The chest pain started in June 2022.? He presented to [facility] on 07/09/2022 for that pain, not felt to be cardiac.? He reports the pain only occurs after eating.? It is typically the left side of the chest, occasionally mid chest/retrosternal, it can radiate to the left shoulder and left upper arm.? He describes it as a pulling sensation.? It can be severe.? He does not typically have it after breakfast but does always have it after lunch and dinner.? It can resolve an hour after it starts but it may take several hours.? There is nothing he can do to relieve it, other than he lies down and waits for it to go away. No heartburn, no acid reflux. Decreased appetite. Maybe some early satiety. No nausea or vomiting. No dysphagia. Litigation Docket Manager started him on omeprazole 20 mg daily earlier this week, but he wants to stop due to periumbilical pains from it, no relief of the chest pain. has him eating healthfully now, bowels are moving better, had been bothered by constipation. Takes fiber gummies and senna stool softener (not clear if senna and/or docusate). Stool is formed first BM of the day, then softer and occas loose other BMs. Less constipation since stopping amiodarone. He does get abdominal pain, cramp-like, across the mid or lower abdomen which is relieved after having BM. Can have similar cramps after eating which feels like gas, never upper abdomen. Has back pain chronically, entire back but especially lower back. Very fatigued recently, getting plenty of sleep but it isn't refreshing. Sister had pancreatic cancer Used to drink 2-3 beers per day, stopped that recently, currently only occas glass of wine ROS Const Constitutional: Positive for fatigue and weight change ENT ENT: No difficulty swallowing Cardio Cardiology: Positive for leg pain with exertion Gastro GI: Positive for abdominal pain, bloating, change in bowel habits, constipation, diarrhea and excessive flatus; No belching, change in stool character, coffee ground emesis, cramping, heartburn, difficulty swallowing, feeling full early, incontinent of stools, Vomiting blood/hematemesis, Blood in stool, loose stools, Black,tarry stools, nausea/dyspepsia, pain with swallowing, vomiting or other Musc Musculoskeletal: Positive for joint pain, back pain, stiffness, Arthritis, leg pain at night and leg pain with exertion Skin Skin: No yellowing of the eye or itchy eyes Psych Psychiatric: No anxiety and No depression Endo Endocrine: Positive for fatigue and weight change Aller/Imm Allergy/Immunologic: No itchy eyes Clifford/Lymp Hematologic/Lymphatic: No easy bleeding or easy bruising Exam Const General: cooperative and no acute distress Nutritional Appearance: obese Orientation: alert, awake and oriented x3 Eyes Sclera: sclerae normal Chest Chest palpation & inspection: normal inspection of the chest Resp Effort & Inspection: normal respiratory effort GI Inspection: obesity Palpation: soft, no hepatosplenomegaly, no masses and nontender Skin General: no rashes or lesions noted and no jaundice Neuro Gait: normal gait Quality Reporting Tobacco Screening ([facility] 138) Smoking Status: Former smoker Assessment and Plan Assessment and Plan (1) Chest pain: ?Status:?Acute ?Plan: 72 yr old male with elevated AST and ALT, postprandial chest pain, chronic constipation, mid/lower abdominal pain. DDx for the postprandial chest pain includes PUD, gastritis, H Pylori, hiatal hernia/volvulus, EPI, gallbladder disorder. We will evaluate liver and gallbladder with RUQ US. CT abd pel w/ oral and IV contrast to eval abd pain and postprandial chest pain. Stool tests for EPI. Blood tests for liver, autoimmune, PBC, PSC, celiac, pancreas and other. Schedule EGD and then 2 wk f/u in office.? (2) Abdominal cramps: ?Status:?Acute ?Plan: as above (3) Elevated liver enzymes: ?Status:?Acute ?Plan: as above (4) Abdominal pain: ?Status:?Acute I have examined the patient and the H&P has been reviewed. There are no clinical changes since date of exam.
[2023-01-02] MEDS: Lactated Ringers 1,000 ML 15 ML IV (06:59)
--- NOTE | 2023-01-02 07:15 | EGD_PTH ---
PATIENT: ROLANDO JETT LOC: EN U#:[id number] AGE/SX: 72/M ROOM: RE01/02/[address]: Dr. Isai Gutiérrez DO : 1950 BED: DIS: 01/02/2023 SPEC #: [id number] RECD: 01/02/23 10:50 STATUS: LACIE NBA #: [id number] ASHA: 01/02/23 07:[address]: Isai Gutiérrez DEPT: SURGICAL PATHOLOGY RECD BY: [place] Stanford ENTERED: 01/02/23 12:13 SP TYPE: EGD BIOPSY OT DR: Dr. Ivan Murphy MD Tissues: A - Duodenum, NOS B - Gastric mucous membrane C - Esophagus, NOS D - Esophagus, NOS Procedures: Special Stain Group II Surgery Specimen Level IV Alcian Blue/PAS (control) HEADER OPERATION: EGD (MAC) and biopsy and bipolar cautery PRE-OP DIAGNOSIS: Abdominal pain and cramps, elevated liver enzymes, chest pain TISSUE SUBMITTED: A - Duodenum biopsy, B - Gastric body biopsy, H. pylori and path, C - Distal esophagus biopsy, D - Lesser curvature submucosal lesion biopsy MICROSCOPIC DIAGNOSIS A. Duodenum, biopsy: No pathologic change. B. Gastric body, biopsy: Chronic gastritis See comment. C. Distal esophagus, biopsy: Gastroesophageal junctional mucosa with mild chronic inflammation. 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 No evidence of dysplasia. See comment. D. Lesser curvature of stomach lesion, biopsy: Fragments of gastric mucosa with chronic gastritis. AM:chris 01/03/2023 COMMENT B. The results of immunohistochemistry for Helicobacter pylori will be reported separately ([id number]). C. Immunohistochemistry ([id number]) for P53 and Ki-67 will be performed and results will be reported separately. Alcian blue/PAS stain with matched control supports the above diagnosis. MICROSCOPIC DESCRIPTION Slides are reviewed. GROSS DESCRIPTION A - Received in fixative is one container labeled with the patient's name and designated duodenum biopsy. The specimen consists of two irregular fragments of light jacobson soft tissue that in aggregate measure 0.9 x 0.3 x 0.1 cm. The specimen is totally submitted in one cassette. B - Received in fixative is one container labeled with the patient's name and designated gastric body. The specimen consists of one irregular fragment of light jacobson soft tissue that measures 0.4 x 0.4 x 0.1 cm. The specimen is totally submitted in one cassette. C - Received in fixative is one container labeled with the patient's name and designated distal esophagus biopsy. The specimen consists of two irregular fragments of light jacobson soft tissue that in aggregate measure 0.5 x 0.4 x 0.1 cm. The specimen is totally submitted in one cassette. D - Received in fixative is one container labeled with the patient's name and designated lesser curvature submucosal lesion. The specimen consists of two irregular fragments of light jacobson soft tissue that in aggregate measure 0.6 x 0.3 x 0.1 cm. The specimen is totally submitted in one cassette. / SJ:chris 01/02/2023 TC:3 [facility]: [id number] x4, [id number]
--- NOTE | 2023-01-02 07:15 | IMM_PTH ---
PATIENT: ROLANDO JETT LOC: EN U#:[id number] AGE/SX: 72/M ROOM: RE01/02/[address]: Dr. Isai Gutiérrez DO : 1950 BED: DIS: 01/02/2023 SPEC #: [id number] RECD: 01/02/23 13:27 STATUS: LACIE REChris #: [id number] ASHA: 01/02/23 07:[address]: Isai Gutiérrez DEPT: IMMUNOHISTOCHEMISTRY RECD BY: Irma Alvarez ENTERED: 01/02/23 13:27 SP TYPE: IMMUNO OTHR DR: Dr. Ivan Murphy MD Tissues: B - Stomach, NOS C - Esophagus, NOS Procedures: H Pylori (initial) P53 (initial) KI-67 (add) PHYSICIAN & INSTITUTION [place] [id number] SPECIMEN INFORMATION: Tissue Source: B ? Gastric body biopsy, C ? Distal esophagus biopsy Clinical Info: Abdominal cramps, elevated liver enzymes, abdominal pain Specimen Number: [id number] B & C CPT code: 13986 x2, 23303 METHODOLOGY: Deparaffinized sections of prefer/formalin-fixed tissue or PAP/DQ stained slides are incubated with monoclonal/polyclonal antibodies/oligonucleotide probes. Localization is made via biotin free immunoperoxidase method. Appropriate controls are performed and reacted as expected. Results on target cell population are indicated in the following table: RESULTS: ANTIBODY / CLONE RESULT Block B H Pylori (polyclonal) negative Block C P53 (DO-7) Ki-67 (30-9) These tests were developed and their performance characteristics determined by [facility]. They may not have been cleared or approved by the U.S. Food and Drug Administration. The FDA has determined that such clearance or approval is not necessary. The above immunohistochemical/dualISH markers are ordered and reviewed by the Pathologist. INTERPRETATION: B. Gastric body, biopsy: Negative for Helicobacter pylori organisms. C. Distal esophagus, biopsy: AM:chris 01/03/2023
--- NOTE | 2023-01-02 07:15 | IMM_PTH ---
PATIENT: ROLANDO JETT LOC: EN U#:[id number] AGE/SX: 72/M ROOM: RE01/02/[address]: Dr. Isai Gutiérrez DO : 1950 BED: DIS: 01/02/2023 SPEC #: [id number] RECD: 01/02/23 13:27 STATUS: LACIE REChris #: [id number] ASHA: 01/02/23 07:[address]: Isai Gutiérrez DEPT: IMMUNOHISTOCHEMISTRY RECD BY: Irma Alvarez ENTERED: 01/02/23 13:27 SP TYPE: IMMUNO OTHR DR: Dr. Ivan Murphy MD Tissues: B - Stomach, NOS C - Esophagus, NOS Procedures: H Pylori (initial) P53 (initial) KI-67 (add) PHYSICIAN & INSTITUTION [place] [id number] SPECIMEN INFORMATION: Tissue Source: B ? Gastric body biopsy, C ? Distal esophagus biopsy Clinical Info: Abdominal cramps, elevated liver enzymes, abdominal pain Specimen Number: [id number] B & C CPT code: 22707 x2, 30380 METHODOLOGY: Deparaffinized sections of prefer/formalin-fixed tissue or PAP/DQ stained slides are incubated with monoclonal/polyclonal antibodies/oligonucleotide probes. Localization is made via biotin free immunoperoxidase method. Appropriate controls are performed and reacted as expected. Results on target cell population are indicated in the following table: RESULTS: ANTIBODY / CLONE RESULT Block B H Pylori (polyclonal) negative Block C P53 (DO-7) negative Ki-67 (30-9) positive, very low These tests were developed and their performance characteristics determined by [facility]. They may not have been cleared or approved by the U.S. Food and Drug Administration. The FDA has determined that such clearance or approval is not necessary. The above immunohistochemical/dualISH markers are ordered and reviewed by the Pathologist. INTERPRETATION: B. Gastric body, biopsy: Negative for Helicobacter pylori organisms. C. Distal esophagus, biopsy: Negative for dysplasia. AM:chris 01/03/2023 AM:chris 01/04/2023
--- NOTE | 2023-01-02 07:41 | OP.CCLET_ITS ---
01/02/2023 Ivan Murphy MD [address] [place] [address] [place] [address] Re : Upper GI endoscopy procedure for Maxi Ji Dear Dr. Murphy This procedure was performed on Monday, January 02, 2023. My impressions and recommendations are as follows: Impressions : - Z-line irregular, 39 cm from the incisors. Biopsied. 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 Biopsied. - No gross lesions in the second portion of the duodenum. Biopsied. Recommendations : - Discharge patient to home. - Resume previous diet. - Continue present medications. - Await pathology results. - Repeat upper endoscopy in 1 year for surveillance. My findings are described in the full procedure note, which is enclosed. If I can be of further assistance, please feel free to contact me at . Sincerely, Isai Gutiérrez, 01/02/2023 7:40:30 AM This report has been signed electronically.
--- NOTE | 2023-01-02 07:41 | OP.EGD_ITS ---
Patient Name: Maxi Ji Procedure Date: 01/02/2023 7:09 AM Date of : 1950 Age: 72 Procedure: Upper GI endoscopy Indications: Epigastric abdominal pain, Functional Dyspepsia, Failure to respond to medical treatment Providers: Isai Gutiérrez DO Referring MD: Isai Gutiérrez DO Medicines: Monitored Anesthesia Care Patient Profile: This is a 72 year old male. Refer to note in patient chart for documentation of history and physical. Patient has symptoms of acute abdominal cramping, acute epigastric abdominal pain and chronic chest pain. Complications: No immediate complications. Procedure: Pre-Anesthesia Assessment: - Prior to the procedure, a History and Physical was performed, and patient medications and allergies were reviewed. The risks and benefits of the procedure and the sedation options and risks were discussed with the patient. All questions were answered and informed consent was obtained. Patient identification and proposed procedure were verified by the physician in the pre-procedure area. Mental Status Examination: alert and oriented. Airway Examination: normal oropharyngeal airway and neck mobility. Respiratory Examination: clear to auscultation. CV Examination: normal. Prophylactic Antibiotics: The patient does not require prophylactic antibiotics. Prior Anticoagulants: The patient has taken no previous anticoagulant or antiplatelet agents. After reviewing the risks and benefits, the patient was deemed in satisfactory condition to undergo the procedure. The anesthesia plan was to use monitored anesthesia care (MAC). Immediately prior to administration of medications, the patient was re-assessed for adequacy to receive sedatives. The heart rate, respiratory rate, oxygen saturations, blood pressure, adequacy of pulmonary ventilation, and response to care were monitored throughout the procedure. The physical status of the patient was re-assessed after the procedure. After obtaining informed consent, the endoscope was passed under direct vision. Throughout the procedure, the patient's blood pressure, pulse, and oxygen saturations were monitored continuously. The gastroscope was introduced through the mouth, and advanced to the second part of duodenum. The upper GI endoscopy was accomplished without difficulty. The patient tolerated the procedure well. Scope In: 7:18:11 AM Scope Out: 7:27:14 AM Total Procedure Duration Time 0 hours 9 minutes 3 seconds Findings: The Z-line was irregular and was found 39 cm from the incisors. Biopsies were taken with a cold forceps for histology. Verification of patient identification for the specimen was done. A small, submucosal, non-circumferential mass with no bleeding and no stigmata of recent bleeding was found on the lesser curvature of the stomach. Biopsies were taken with a cold forceps for histology. Verification of patient identification for the specimen was done. Estimated blood loss was minimal. No gross lesions were noted in the second portion of the duodenum. Biopsies were taken with a cold forceps for histology. Verification of patient identification for the specimen was done. Estimated blood loss was minimal. Impression: - Z-line irregular, 39 cm from the incisors. Biopsied. 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 Biopsied. - No gross lesions in the second portion of the duodenum. Biopsied. Recommendation: - Discharge patient to home. - Resume previous diet. - Continue present medications. - Await pathology results. - Repeat upper endoscopy in 1 year for surveillance. Procedure Code(s): --- Professional --- 83073, Esophagogastroduodenoscopy, flexible, transoral; with biopsy, single or multiple CPT copyright 2017 [employer]. All rights reserved. The codes documented in this report are preliminary and upon warehouse material handler review may be revised to meet current compliance requirements. Isai Gutiérrez DO 01/02/2023 7:40:30 AM This report has been signed electronically. Number of Addenda: 0 Note Initiated On: 01/02/2023 7:09 AM
== END 2023-01-02 08:13 | disposition home or self-care (01) ==
LOC: EN 06:08 → AC 06:10
PROVIDERS: PCP Internal Medicine; Referring Provider Internal Medicine Gastroenterology; Visit Provider Internal Medicine Gastroenterology
PROC: 0DJ08ZZ Inspection of Upper Intestinal Tract, Via Natural or Artificial Opening Endoscopic (ICD-10-PCS; CPT 43235; principal; 2023-01-02 07:10)
DX: K29.50 Unspecified chronic gastritis without bleeding (principal); N18.30 Chronic kidney disease, stage 3 unspecified; K22.70 Barrett's esophagus without dysplasia; R74.8 Abnormal levels of other serum enzymes; K59.09 Other constipation; R53.83 Other fatigue; I12.9 Hypertensive chronic kidney disease with stage 1 through stage 4 chronic kidney disease, or unspecified chronic kidney disease; Z79.899 Other long term (current) drug therapy; Z87.891 Personal history of nicotine dependence; Z86.010 Personal history of colon polyps
CPT/HCPCS: 43239; 88305; 88313; 88341; 88342; J7120

== ENCOUNTER → 2023-01-20 | Outpatient (CLI) | payer MEDICARE, SELFPAY ==
[2023-01-20 11:31] LABS: AST(SGOT) 74 U/L (15-37); Alanine Aminotransfer ALT/SGPT 104 U/L (16-61); Albumin, Serum 3.5 g/dL (3.2-5.0); Alkaline Phosphatase 88 U/L (45-117); Anion Gap 7 (5-15); BUN 14 mg/dL (7-18); BUN/Creat Ratio 12.1 RATIO (10-20); CRP < 2.90 mg/L (0.0-3.0); Calcium,Total 9.1 mg/dL (8.5-10.1); Chloride 106 mmol/L (98-107); Creatinine, Serum 1.16 mg/dL (0.70-1.30); EST Glomerular Filtration Rate 66 mL/min (>60); Est Glom Filt Rate - Afr Amer 80 mL/min (>60); Ferritin 548 ng/mL (26-388); Globulin 3.5 g/dL (2.2-4.2); Glucose 82 mg/dL (74-106); Potassium 3.8 mmol/L (3.5-5.1); Sodium Level 143 mmol/L (136-145)
[2023-01-23 13:08] LABS: Albumin 3.8 g/dL (2.9-4.4); Alpha-1-Globulins 0.3 g/dL (0.0-0.4); Alpha-2-Globulins 0.9 g/dL (0.4-1.0); Gamma Globulin 0.7 g/dL (0.4-1.8); Immunoglobulin A 151 mg/dL (61-437); Immunoglobulin G 840 mg/dL (603-1613); Immunoglobulin M 56 mg/dL (15-143); PROEL- TOTAL PROTEIN 6.7 g/dL (6.0-8.5)
[2023-01-23 18:52] LABS: IMMUNOFIXATION RESULT,S Comment: (.)
== END | disposition home or self-care (01) ==
LOC: LAB 10:03
PROVIDERS: PCP Internal Medicine; Referring Provider Nurse Practitioner Adult Health; Visit Provider Nurse Practitioner Adult Health
DX: R74.8 Abnormal levels of other serum enzymes (principal); I48.91 Unspecified atrial fibrillation; R77.8 Other specified abnormalities of plasma proteins
CPT/HCPCS: 36415; 80053; 82728; 82784; 84165; 86140; 86334

== ENCOUNTER → 2023-02-14 | Outpatient (CLI) | payer MEDICARE, SELFPAY ==
[2023-02-14 08:39] LABS: Cholesterol 178 mg/dL (200); High Density Lipoprotein 64 mg/dL; Triglycerides 107 mg/dL; Very Low Density Lipoprotein 21 mg/dL (5-40)
== END | disposition home or self-care (01) ==
LOC: LAB 07:43
PROVIDERS: PCP Internal Medicine; Referring Provider Internal Medicine Cardiovascular Disease; Visit Provider Internal Medicine Cardiovascular Disease
DX: I10 Essential (primary) hypertension (principal)
CPT/HCPCS: 36415; 80061

== ENCOUNTER 2023-04-05 17:18 | Emergency (ER) | payer MEDICARE, SELFPAY ==
[2023-04-05 17:19] VITALS: BP 178/94; PULSE 86; RESP 16; TEMP 36.1; O2SAT 96; BMI 30.7
--- NOTE | 2023-04-05 17:51 | EKG12_ITS ---
Test Reason : CHEST OTHER Blood Pressure : / mmHG Vent. Rate : 078 BPM Atrial Rate : 078 BPM P-R Int : 180 ms QRS Dur : 094 ms QT Int : 392 ms P-R-T Axes : 030 024 015 degrees QTc Int : 446 ms Normal sinus rhythm Normal ECG Confirmed by MICHELE KNIGHT, MELITA ([id number]), editor managing director VEGA JI ([id number]) on 04/07/2023 9:30:32 AM Referred By: VICTOR MANUEL Confirmed By:MELITA BAUTISTA MD
--- NOTE | 2023-04-05 17:54 | EX.ED.DYSGE1 ---
HPI History of Present Illness Chief Complaint: Chest Pain Informant: patient and spouse/S.O. Narrative Narrative: Patient presents with episode of A-fib. He stated at noon today just started not feeling well. He states he gets chest pain all the time from his Sarah's esophagus. He always checks his home environmental monitoring technician that shows a normal rhythm and then he goes back to activity. This time he got the chest pain which was left parasternal which is his typical. He checked the monitor and it said it may be A-fib. He states he was not really short of breath or nauseated but he just did not feel well. His energy was low. This is typical when he has been in A-fib in the past. He used to be on Xarelto. But it was stopped because of a colonoscopy. When he restarted it after colonoscopy he started having some bleeding so it was just stopped at that time. He just had a outpatient environmental monitoring technician for 30 days but I cannot find the results on the computer. He states he feels perfectly fine now. He states the ambulance showed up and they had him in A-fib but somewhere in between it stopped he has not missed any of his metoprolol. He is on baby aspirin. He felt fine prior to this episode and he feels fine now. He had the symptoms for about 5-6 hours. Nothing specifically made it better or initiated. This was not exertional onset. [facility] Medical History Abdominal cramps Abdominal pain Abnormal SPEP Alcohol use Arthritis Atrial fibrillation Back pain Sarah's esophagus BPH (benign prostatic hyperplasia) Cardiology follow-up encounter Chest pain CKD (chronic kidney disease), stage III Constipation Elevated liver enzymes Former smoker Gastritis, bile acid reflux Gastrointestinal problem Health care maintenance High blood pressure History of atrial fibrillation History of colon polyps History of echocardiogram History of stress test Hypertension Left atrial enlargement Left ventricular hypertrophy Mitral valve regurgitation Palpitations Home Medications vibegron 75 mg tablet (Gemtesa) 75 mg PO DAILY 12/27/21 [History Last Taken Unknown] silodosin 8 mg capsule 8 mg PO DAILY 07/05/22 [History Last Taken Unknown] inulin 2 gram chewable tablet (Fiber Gummies) 2 g PO DAILY 07/26/22 [History Last Taken Unknown] bisacodyl 5 mg tablet,delayed release (Dulcolax (bisacodyl)) 5 mg PO ONCE 01/23/23 [History Last Taken Unknown] aspirin 325 mg tablet,delayed release 325 mg PO DAILY #100 tabs 02/13/23 [Rx Last Taken Unknown] losartan 100 mg tablet 100 mg PO DAILY #90 tabs 02/13/23 [Rx Last Taken Unknown] metoprolol succinate 25 mg tablet,extended release 24 hr 25 mg PO DAILY #90 tabs 02/13/23 [Rx Last Taken Unknown] pantoprazole 40 mg tablet,delayed release 40 mg PO DAILY 02/13/23 [History Last Taken Unknown] Allergy/AdvReac Type Severity Reaction Status Date / Time No Known Allergies Allergy Verified 04/05/23 17:23 Family History Sister Cancer stomach Other No pertinent family history Surgical History Amputation of left thumb H/O arthroscopy of left knee History of arthroscopy of right knee History of skin graft Hx of colonoscopy Social History Smoking Status: Former smoker how long ago did patient quit smokin years ago alcohol intake: current alcohol intake frequency: a few times a week Alcohol type: wine substance use type: does not use caffeine: Yes Type: coffee Number of servings: 2 what type of physical activity do you participate in: other details: leg stretches - toe touching frequency: 3-4 times per week ROS ROS ED ROS Narrative A complete review of systems was performed and is negative except as documented in the history of present illness. Some specific details below. Constitutional: No recent fevers or chills. No malaise except while he was in A-fib. He feels perfectly fine now. EYE: No discharge, visual complaints, or pain. ENT: No difficulty swallowing. No swelling. No pain. He did have his typical reflux symptoms when this started but they are gone. CV: See history of present illness. Respiratory: No coughing. He may have had transient dyspnea but he states mostly he just did not feel well. Now he has no complaint. GI: No abdominal pain. No nausea vomiting diarrhea. No blood in stool. : No frequency dysuria or hematuria. Musculoskeletal: No recent trauma. No pains. No swelling. Skin: No rash. Nondiaphoretic. Neuro: No weakness or numbness. Endocrine: No polyuria or polydipsia. EXAM Physical Exam Narrative Exam Narrative: CONSTITUTIONAL: Patient is nontoxic in appearance. The patient looks comfortable. Work of breathing looks normal. He is sitting very comfortably on the bed and carries on a very normal conversation. HEENT: No notable trauma. Mucous membranes moist. No sinus tenderness. No indication of pain with swallowing. EYES: No conjunctival injection. No proptosis. NECK:No JVD. No stridor. CARDIOVASCULAR: Regular rate. Regular rhythm. No notable murmur. No JVD. My independent her potation the monitor strip is a normal sinus rhythm with a rate of about 78. He has an occasional PVC very rarely spaced. No indication of atrial fibrillation. RESPIRATORY: No respiratory distress. Breathing is unlabored. No wheezes. No rhonchi. No rales. No pain with a deep breath. No chest wall tenderness. Saturations are normal at 96% on room air showing no hypoxia. GASTROINTESTINAL: Not distended. Bowel sounds are normal. No tenderness. No guarding. No rebound. No palpable mass. No bruit is heard. GENITOURINARY: No tenderness over the bladder. No CVA tenderness. MUSCULOSKELETAL: Atraumatic. No peripheral edema. No cord. No tenderness along the deep venous system. No asymmetry. No distended veins. NEUROLOGICAL: Patient is alert and appropriate. No focal deficit noted. SKIN: No noted rashes. No diaphoresis. PSYCHIATRIC: Patient is calm. Mood is appropriate. Const Vital Signs: 04/05/23 17:19 04/05/23 17:24 04/05/23 18:11 Temperature 97.0 F L Temperature Source Temporal Pulse Rate 86 Respiratory Rate 16 Respiratory Pattern Normal Blood Pressure 178/94 H Blood Pressure Mean 122 Pulse Ox 96 97 Oxygen Delivery Method Room Air Room Air 04/05/23 19:18 04/05/23 21:00 Temperature Temperature Source Pulse Rate 77 77 Respiratory Rate 14 25 H Respiratory Pattern Blood Pressure 130/68 H 135/66 H Blood Pressure Mean 88 89 Pulse Ox 99 97 Oxygen Delivery Method Room Air Room Air MDM MDM MDM Narrative Medical decision making narrative: Patient CBC shows no acute abnormality. Patient's electrolytes are normal Patient's first troponin is normal at 9. Patient's repeat troponin is normal and actually decreased at 7. If my independent interpretation of the patient's single view chest x-ray shows no acute process test. Final reading is also no acute cardiopulmonary disease. I have been watching the monitor many times. Every time I look at his monitor is a normal sinus rhythm at a about mid 70s. I have seen no episodes of A-fib and he has had no symptoms. Patient is asymptomatic. He would like to go home. He just had a 30-day monitor and they are awaiting those results. He states he used to be on Xarelto. But he does not like being on this and would prefer not to start it now. We did talk that his [id number] score is elevated but his dispute resolution analyst previously had stopped anticoagulation. They are going to talk with her dispute resolution analyst about the possibility of restarting. We discussed reasons to return. Of note, the patient does have a monitor at home that will tell him if he goes into A-fib and he checks this frequently during the day. Lab Data Attestation: I reviewed the patient's lab results. Labs: Laboratory Results - last 24 hr 04/05/23 04/05/23 04/05/23 18:07 18:07 20:27 WBC 6.1 RBC 4.91 Hgb 15.1 Hct 45.3 MCV 92.3 MCH 30.8 MCHC 33.3 RDW Std Deviation 41.4 RDW Coeff of Miles 12.3 Plt Count 172 MPV 9.4 Immature Gran % (Auto) 0.300 Neut % (Auto) 54.9 Lymph % (Auto) 27.5 [place] % (Auto) 15.5 H Eos % (Auto) 1.3 Baso % (Auto) 0.5 Absolute Neuts (auto) 3.3 Absolute Lymphs (auto) 1.67 Nucleated RBC % 0 Sodium 140 Potassium 3.9 Chloride 109 H Carbon Dioxide 26.0 Anion Gap 5 BUN 17 Creatinine 1.18 Estim Creat Clear Calc 62.11 Est GFR (MDRD) Af Amer 78 Est GFR (MDRD) Non-Af 64 BUN/Creatinine Ratio 14.4 Glucose 112 H Calcium 9.4 Troponin I High Sens 9 7 Radiography Diagnostic Testing: Clinical Impression(s) from Imaging Studies Chest X-Ray 04/05/23 18:25 IMPRESSION: No acute cardiopulmonary pathology. Electronically Signed: Pedro Ferraro MD at 18:41 EDT Reading Location ID and State: [facility] / [place] , Service support , EKG Initial EKG: Comments: My independent interpretation the patient's EKG done for weakness and atrial fibrillation now shows normal sinus rhythm with normal rate at 78 bpm. There is no ventricular ectopy. No preexcitation. No supraventricular ectopy. No acute ST elevation or depression consistent with infarct or ischemia. TN interval, QRS duration and QTc are normal Discharge Plan Triage Chief Complaint: Chest Pain ED Provider: Nino Sterling Dx/Rx/DC Orders Clinical Impression: Paroxysmal atrial fibrillation Instructions: ED AFIB Prescriptions: No Action Gemtesa 75 mg tablet 75 mg PO DAILY Fiber Gummies 2 gram tablet,chewable 2 g PO DAILY silodosin 8 mg capsule 8 mg PO DAILY Rx Instructions: must administer with a meal/food bisacodyl [Dulcolax (bisacodyl)] 5 mg tablet,delayed release (DR/EC) 5 mg PO ONCE pantoprazole 40 mg tablet,delayed release (DR/EC) 40 mg PO DAILY aspirin 325 mg tablet,delayed release (DR/EC) 325 mg PO DAILY Qty: 100 4RF losartan 100 mg tablet 100 mg PO DAILY Qty: 90 3RF metoprolol succinate 25 mg tablet extended release 24 hr 25 mg PO DAILY Qty: 90 3RF Primary Care Provider: Ivan Murphy Referrals: Ann Marie Dia MD [Med Staff - Active Staff] - As soon as possible Ivan Murpyh MD [Primary Care Provider] - Disposition Disposition: Home, Self Care
[2023-04-05 18:11] VITALS: O2SAT 97
[2023-04-05 18:15] LABS: Absolute Lymphocyte Count 1.67 X10^3/uL (0.83-4.51); Absolute Neutrophil Count 3.3 X10^3/uL (2.0-7.7); Basophil# 0.03 X10^3/uL; Basophil% 0.5 % (0-1); Eosinophil# 0.08 X10^3/uL; Eosinophils% 1.3 % (0-5); Hematocrit 45.3 % (40-54); Hemoglobin 15.1 g/dL (13.0-16.5); Lymphocyte # 1.67 X10^3/ul (0.83-4.51); Lymphocyte % 27.5 % (19-41); Mean Corp Hgb Conc 33.3 g/dL (32-36); Mean Corpuscular Hgb 30.8 pg (27.0-32.0); Mean Corpuscular Volume 92.3 fL (80-94); Mean Platelet Vol. 9.4 fl (6.2-12.0); Monocyte# 0.94 X10^3/uL; Monocyte% 15.5 % (0-10); NRBC Flagged by Analyzer 0 % (0-5); Neutrophil # 3.33 X10^3/uL (2.7-7.7); Neutrophil % 54.9 % (47-70); Platelet Count 172 K/mm3 (150-450); RBC Distribution Width CV 12.3 % (11.6-14.6); RBC Distribution Width SD 41.4 fl (35.1-43.9); Red Blood Count 4.91 M/mm3 (4.6-6.2); White Blood Count 6.1 K/mm3 (4.4-11.0)
--- NOTE | 2023-04-05 18:25 | RAD_ITS ---
STUDY: X-RAY CHEST REASON FOR EXAM: Male, 72 years old. chest pain TECHNIQUE: AP portable COMPARISON: July 09, 2022. FINDINGS: The lungs are clear and expanded. There is no demonstrated pleural abnormality. Normal size heart. Normal mediastinum and diana. Normal visualized pulmonary arteries. Normal visualized aortic arch and descending thoracic aorta. Dorsal spine demonstrates degenerative changes. Normal visualized ribs, clavicles, and shoulders. There is no demonstrated abnormality of the visualized soft tissue structures of the upper abdomen. RAD/Chest 1 View (Portable) IMPRESSION: No acute cardiopulmonary pathology. Electronically Signed: Pedro Ferraro MD at 18:41 EDT ,
[2023-04-05 18:34] LABS: Anion Gap 5 (5-15); BUN 17 mg/dL (7-18); BUN/Creat Ratio 14.4 RATIO (10-20); Calcium,Total 9.4 mg/dL (8.5-10.1); Chloride 109 mmol/L (98-107); Creatinine, Serum 1.18 mg/dL (0.70-1.30); EST Glomerular Filtration Rate 64 mL/min (>60); Est Glom Filt Rate - Afr Amer 78 mL/min (>60); Estimated Creatinine Clearance 62.11 ml/min; Glucose 112 mg/dL (74-106); Potassium 3.9 mmol/L (3.5-5.1); Sodium Level 140 mmol/L (136-145); Troponin-I HS (w/2H Reflex) 9 pg/mL (3.0-78.0)
[2023-04-05 19:18] VITALS: BP 130/68; PULSE 77; RESP 14; O2SAT 99
[2023-04-05 20:11] LABS: Reflex Troponin-HS? (from REC) Y
[2023-04-05 21:00] VITALS: BP 135/66; PULSE 77; RESP 25; O2SAT 97
[2023-04-05 21:13] LABS: Troponin-I HS 7 pg/mL (3.0-78.0)
[2023-04-05 22:11] VITALS: BP 128/67; PULSE 71; RESP 16; O2SAT 99
== END 2023-04-05 22:14 | disposition home or self-care (01) ==
PROVIDERS: Emergency Provider Emergency Medicine; PCP Internal Medicine; Visit Provider Emergency Medicine
DX: I48.0 Paroxysmal atrial fibrillation (principal); N18.30 Chronic kidney disease, stage 3 unspecified; I12.9 Hypertensive chronic kidney disease with stage 1 through stage 4 chronic kidney disease, or unspecified chronic kidney disease; K22.70 Barrett's esophagus without dysplasia; Z79.82 Long term (current) use of aspirin; Z79.899 Other long term (current) drug therapy; Z87.891 Personal history of nicotine dependence
CPT/HCPCS: 71045; 80048; 84484; 85025; 93005; 99285; A4216

== ENCOUNTER 2023-04-10 07:41 | Emergency (ER) | payer MEDICARE, SELFPAY ==
[2023-04-10] VITALS (7 sets, daily range): BP systolic 117–150; BP diastolic 59–78; PULSE 65–114; RESP 11–19; TEMP 36.1; O2SAT 95–99; BMI 30.4
[2023-04-10 08:07] LABS: Absolute Lymphocyte Count 1.74 X10^3/uL (0.83-4.51); Absolute Neutrophil Count 3.2 X10^3/uL (2.0-7.7); Basophil# 0.03 X10^3/uL; Basophil% 0.5 % (0-1); Eosinophil# 0.09 X10^3/uL; Eosinophils% 1.5 % (0-5); Hematocrit 43.5 % (40-54); Hemoglobin 14.7 g/dL (13.0-16.5); Lymphocyte # 1.74 X10^3/ul (0.83-4.51); Lymphocyte % 29.5 % (19-41); Mean Corp Hgb Conc 33.8 g/dL (32-36); Mean Corpuscular Hgb 31.3 pg (27.0-32.0); Mean Corpuscular Volume 92.6 fL (80-94); Mean Platelet Vol. 9.5 fl (6.2-12.0); Monocyte# 0.81 X10^3/uL; Monocyte% 13.7 % (0-10); NRBC Flagged by Analyzer 0 % (0-5); Neutrophil # 3.22 X10^3/uL (2.7-7.7); Neutrophil % 54.6 % (47-70); Platelet Count 172 K/mm3 (150-450); RBC Distribution Width CV 11.9 % (11.6-14.6); White Blood Count 5.9 K/mm3 (4.4-11.0)
--- NOTE | 2023-04-10 08:10 | RAD_ITS ---
STUDY: X-RAY CHEST REASON FOR EXAM: Male, 72 years old. chest pain TECHNIQUE: Single AP portable view of the chest. COMPARISON: April 05, 2023 FINDINGS: The lungs are clear and expanded. There is no demonstrated pleural abnormality. Normal size heart. Normal mediastinum and diana. Normal visualized pulmonary arteries. Normal visualized aortic arch and descending thoracic aorta. There are diffuse degenerative changes of the visualized thoracic spine. Normal visualized ribs, clavicles, and shoulders. There is no demonstrated abnormality of the visualized soft tissue structures of the upper abdomen. RAD/Chest 1 View (Portable) IMPRESSION: Degenerative changes, as described above. No demonstrated acute cardiopulmonary process. Electronically Signed: Abraham Mohamud MD at 8:27 EDT ,
--- NOTE | 2023-04-10 08:20 | ED.VIS.CHEST ---
HPI History of Present Illness Chief Complaint: Chest Pain Informant: patient Onset/Context/Timing Onset: Today Narrative Narrative: Patient presents secondary to palpitations. He has a history of paroxysmal A-fib. He was seen at the hospital on Monday where prehospital EKG revealed A-fib but he had converted to sinus rhythm by the time he arrived here. He presents back today with palpitations. He initially stated that he had had some chest pressure earlier but it is now resolved. He denied any chest pain to me. He reports slight shortness of breath. He reportedly has a history of paroxysmal A-fib. He was taken off of Xarelto previously. He recently had a 30-day event monitor and he was told that it was normal. He states the staff at the cardiology office told him they would be scheduling him for a stress test. [facility] Medical History Abdominal cramps Abdominal pain Abnormal SPEP Alcohol use Arthritis Atrial fibrillation Back pain Sarah's esophagus BPH (benign prostatic hyperplasia) Cardiology follow-up encounter Chest pain CKD (chronic kidney disease), stage III Constipation Elevated liver enzymes Former smoker Gastritis, bile acid reflux Gastrointestinal problem Health care maintenance High blood pressure History of atrial fibrillation History of colon polyps History of echocardiogram History of stress test Hypertension Left atrial enlargement Left ventricular hypertrophy Mitral valve regurgitation Palpitations Home Medications silodosin 8 mg capsule 8 mg PO DAILY 07/05/22 [History Last Taken Unknown] inulin 2 gram chewable tablet (Fiber Gummies) 2 g PO DAILY 07/26/22 [History Last Taken Unknown] bisacodyl 5 mg tablet,delayed release (Dulcolax (bisacodyl)) 5 mg PO ONCE 01/23/23 [History Last Taken Unknown] aspirin 325 mg tablet,delayed release 325 mg PO DAILY #100 tabs 02/13/23 [Rx Last Taken Unknown] losartan 100 mg tablet 100 mg PO DAILY #90 tabs 02/13/23 [Rx Last Taken Unknown] metoprolol succinate 25 mg tablet,extended release 24 hr 25 mg PO DAILY #90 tabs 02/13/23 [Rx Last Taken Unknown] pantoprazole 40 mg tablet,delayed release 40 mg PO DAILY 02/13/23 [History Last Taken Unknown] rivaroxaban 20 mg tablet (Xarelto) 20 mg PO DAILY #30 tabs 04/10/23 [Rx Last Taken Unknown] Allergy/AdvReac Type Severity Reaction Status Date / Time No Known Allergies Allergy Verified 04/10/23 07:41 Family History Sister Cancer stomach Other No pertinent family history Surgical History Amputation of left thumb H/O arthroscopy of left knee History of arthroscopy of right knee History of skin graft Hx of colonoscopy Social History Smoking Status: Former smoker how long ago did patient quit smokin years ago alcohol intake: current alcohol intake frequency: a few times a week Alcohol type: wine substance use type: does not use caffeine: Yes Type: coffee Number of servings: 2 what type of physical activity do you participate in: other details: leg stretches - toe touching frequency: 3-4 times per week ROS ROS ED Constitutional Constitutional ED: Denies chills or fever(s) Eyes Eyes: Denies change in vision or discharge from eye(s) ENT ENT ED: Denies discharge from eye(s), rhinorrhea or sore throat Cardiovascular Cardiovascular: Reports chest pain and palpitations Respiratory/Chest Respiratory/Chest: Reports dyspnea; Denies cough Gastrointestinal Gastrointestinal: Denies abdominal pain, nausea or vomiting Genitourinary Genitourinary ED: Denies dysuria Musculoskeletal Musculoskeletal: Denies back pain or extremity pain Integumentary Denies Abrasions or rash Neurologic Neurologic: Denies headache(s) or weakness Psychiatric Psychiatric: Denies anxiety or depression Endocrine Endocrinology: Denies polydipsia or polyuria Allergic/Immunologic Allergic/Immunologic ED: Denies lip swelling or urticaria EXAM Physical Exam Const Vital Signs: 04/10/23 07:44 04/10/23 07:47 04/10/23 07:50 Temperature 97 F L Temperature Source Temporal Pulse Rate 98 114 H Respiratory Rate 19 H Blood Pressure 150/72 H Blood Pressure Mean 98 Pulse Ox 98 Oxygen Delivery Method Room Air Room Air 04/10/23 08:42 04/10/23 09:09 04/10/23 10:21 Temperature Temperature Source Pulse Rate 84 80 67 Respiratory Rate 17 14 18 Blood Pressure 126/78 H 138/74 H 142/66 H Blood Pressure Mean 94 95 91 Pulse Ox 99 98 96 Oxygen Delivery Method Room Air Room Air Room Air 04/10/23 11:07 04/10/23 11:17 Temperature Temperature Source Pulse Rate 65 65 Respiratory Rate 11 L 16 Blood Pressure 117/59 L 117/59 L Blood Pressure Mean 78 Pulse Ox 95 98 Oxygen Delivery Method Room Air Positive well nourished and well developed General Appearance ED: well developed HEENT Reports normocephalic and head/scalp atraumatic Eyes PERRL and EOMs intact bilaterally Neck supple Chest Wall inspection of chest normal and palpation of chest normal Resp normal respiratory effort and clear to auscultation bilaterally Cardio Rhythm: abnormal rhythm irregularly irregular GI normal to inspection, nondistended, normoactive bowel sounds Palpation: soft Extremity normal to inspection Neuro oriented x3 and no sensory deficits noted Sensorium / Orientation: alert Motor Exam: strength 5/5 throughout Psych mental status grossly normal Skin no rashes or lesions noted Heart Score History: Slightly/Non-Suspicious ECG: Normal Age: >/= 65 years Risk Factors: 1 or 2 Risk Factors Troponin: </= Normal Limit Score: 3 MDM MDM MDM Narrative Medical decision making narrative: Patient had taken full size aspirin as well as 3 baby aspirin prior to arrival. Patient is placed on personnel monitor. EKG obtained to evaluate for cardiac arrhythmia/ischemia. Chest x-ray obtained to evaluate for acute lung pathology, cardiac size, or mediastinal abnormality. Labwork obtained to evaluate for leukocytosis, anemia, and electrolyte derangement. History & Record Review Discussion w/independent historian: Patient and Significant other Additional record(s) reviewed:: Prior outpatient record, Prior ED visit and Prior labs Lab Data Attestation: I reviewed the patient's lab results. Labs: Laboratory Results - last 24 hr 04/10/23 04/10/23 04/10/23 07:50 07:50 10:20 WBC 5.9 RBC 4.70 Hgb 14.7 Hct 43.5 MCV 92.6 MCH 31.3 MCHC 33.8 RDW Std Deviation 41.0 RDW Coeff of Miles 11.9 Plt Count 172 MPV 9.5 Immature Gran % (Auto) 0.200 Neut % (Auto) 54.6 Lymph % (Auto) 29.5 Mcminn % (Auto) 13.7 H Eos % (Auto) 1.5 Baso % (Auto) 0.5 Absolute Neuts (auto) 3.2 Absolute Lymphs (auto) 1.74 Nucleated RBC % 0 Sodium 140 Potassium 3.9 Chloride 106 Carbon Dioxide 27.0 Anion Gap 7 BUN 18 Creatinine 1.09 Estim Creat Clear Calc 67.24 Est GFR (MDRD) Af Amer 85 Est GFR (MDRD) Non-Af 71 BUN/Creatinine Ratio 16.5 Glucose 151 H Calcium 9.5 Troponin I High Sens 8 8 Radiography Chest X-Ray - ED: 1 View, Read by ED Physician and Chronic Changes Diagnostic Testing: Clinical Impression(s) from Imaging Studies Chest X-Ray 04/10/23 08:10 IMPRESSION: Degenerative changes, as described above. No demonstrated acute cardiopulmonary process. Electronically Signed: Abraham Mohamud MD at 8:27 EDT , EKG Initial EKG: Attestation: I personally reviewed and interpreted this EKG as follows: Interpretation: Atrial Fibrillation (Atrial fibrillation at [address] change.) Treatment and Re-Evaluation :: Patient does have a history of paroxysmal A-fib but is not currently on anticoagulants. He is in atrial fibrillation on arrival with initial heart rate around 105 at the time of my exam. He was given 5 mg of Lopressor. EKG is atrial fibrillation at 93 bpm. No acute sign of ischemia. Chest x-ray per my interpretation was chronic changes with no focal infiltrate. Radiology interpretation is reviewed and agrees. CBC is unremarkable. Chemistry studies are normal. Troponin is normal at 8 with delta 2-hour troponin also being 8. Per patient and family his 30-day event monitor was unremarkable for atrial fibrillation. He was now seen to have A-fib on Monday as well as today, the following Monday. He was told that he was going to be scheduled for a stress test. He denies any chest pain at this time. I spoke with Dr. Gonzalez. Patient will be started on Xarelto and his metoprolol will be increased from 25 daily to [address] Gonzalez will have his office call patient to schedule a stress test. Return instructions provided. Patient and voiced understanding and agreement. Discharge Plan Triage Chief Complaint: Chest Pain ED Provider: Aye Galvan Dx/Rx/DC Orders Clinical Impression: Atrial fibrillation Instructions: ED AFIB Prescriptions: New Xarelto 20 mg tablet 20 mg PO DAILY Qty: 30 0RF No Action Fiber Gummies 2 gram tablet,chewable 2 g PO DAILY silodosin 8 mg capsule 8 mg PO DAILY Rx Instructions: must administer with a meal/food bisacodyl [Dulcolax (bisacodyl)] 5 mg tablet,delayed release (DR/EC) 5 mg PO ONCE pantoprazole 40 mg tablet,delayed release (DR/EC) 40 mg PO DAILY aspirin 325 mg tablet,delayed release (DR/EC) 325 mg PO DAILY Qty: 100 4RF losartan 100 mg tablet 100 mg PO DAILY Qty: 90 3RF metoprolol succinate 25 mg tablet extended release 24 hr 25 mg PO DAILY Qty: 90 3RF Primary Care Provider: Ivan Murphy Referrals: Artemio Gonzalez MD [Med Staff - Active Staff] - 1-2 Weeks Ivan Murphy MD [Primary Care Provider] - Activity Restrictions/Additional Instructions: You can stop taking aspirin as we are starting you on a Xarelto. Please double your metoprolol dose from 25 mg [address] Gonzalez's office will be calling you to schedule a stress test. Disposition Disposition: Home, Self Care Discharge Date/Time: 04/10/23 11:18
[2023-04-10 08:24] LABS: Anion Gap 7 (5-15); BUN 18 mg/dL (7-18); BUN/Creat Ratio 16.5 RATIO (10-20); Calcium,Total 9.5 mg/dL (8.5-10.1); Chloride 106 mmol/L (98-107); Creatinine, Serum 1.09 mg/dL (0.70-1.30); EST Glomerular Filtration Rate 71 mL/min (>60); Est Glom Filt Rate - Afr Amer 85 mL/min (>60); Estimated Creatinine Clearance 67.24 ml/min; Glucose 151 mg/dL (74-106); Potassium 3.9 mmol/L (3.5-5.1); Sodium Level 140 mmol/L (136-145); Troponin-I HS (w/2H Reflex) 8 pg/mL (3.0-78.0)
[2023-04-10] MEDS: Metoprolol Tartrate 5 MG/5 ML Vial IV (08:36)
[2023-04-10] MEDS: 0.9% Normal Saline 1,000 ML 150 ML IV (08:37)
[2023-04-10 10:05] LABS: Reflex Troponin-HS? (from REC) Y
[2023-04-10 10:48] LABS: Troponin-I HS 8 pg/mL (3.0-78.0)
== END 2023-04-10 11:18 | disposition home or self-care (01) ==
PROVIDERS: Emergency Provider Emergency Medicine; PCP Internal Medicine; Visit Provider Emergency Medicine
DX: I48.0 Paroxysmal atrial fibrillation (principal); N18.30 Chronic kidney disease, stage 3 unspecified; I12.9 Hypertensive chronic kidney disease with stage 1 through stage 4 chronic kidney disease, or unspecified chronic kidney disease; Z87.891 Personal history of nicotine dependence
CPT/HCPCS: 71045; 80048; 84484; 85025; 93005; 96361; 96374; 99284; J7030; A4216

== ENCOUNTER 2023-04-12 01:34 | Emergency (ER) | payer MEDICARE, SELFPAY ==
--- NOTE | 2023-04-12 01:34 | EKG12_ITS ---
Test Reason : DYSRHYTHMIA Blood Pressure : / mmHG Vent. Rate : 103 BPM Atrial Rate : 098 BPM P-R Int : 000 ms QRS Dur : 094 ms QT Int : 360 ms P-R-T Axes : 000 047 -21 degrees QTc Int : 471 ms Atrial fibrillation Abnormal ECG Confirmed by MICHELE KNIGHT, MELITA ([id number]), editor magazine VEGA JI ([id number]) on 04/13/2023 9:02:24 AM Referred By: LORNE Confirmed By:MELITA BAUTISTA MD
[2023-04-12 01:35] VITALS: BP 158/102; PULSE 94; RESP 13; TEMP 36.6; O2SAT 97; BMI 29.8
[2023-04-12 01:40] VITALS: BMI 29.7
--- NOTE | 2023-04-12 01:40 | EKG12_ITS ---
Test Reason : CP Blood Pressure : / mmHG Vent. Rate : 093 BPM Atrial Rate : 000 BPM P-R Int : 000 ms QRS Dur : 096 ms QT Int : 362 ms P-R-T Axes : 000 038 -05 degrees QTc Int : 450 ms Atrial fibrillation Abnormal ECG Confirmed by MICHELE KNIGHT, MELITA ([id number]), web editor VEGA JI ([id number]) on 04/12/2023 2:10:33 PM Referred By: TAM Confirmed By:MELITA BAUTISTA MD
--- NOTE | 2023-04-12 01:48 | ED.VIS.CHEST ---
HPI History of Present Illness Chief Complaint: Palpitations Detail of Chief Complaint: Recurrent A-fib. No chest pain. Informant: patient and spouse/S.O. Onset/Context/Timing Worsened By: Nothing Relieved By: Nothing Associated Symptoms: Positive for Palpitations; Negative for Nausea, Vomiting, Diaphoresis, Cough, Fever, Lightheadedness or Acid Reflux Narrative Narrative: 72-year-old male history of A-fib for the last 2 years. He was out of it for about a year. And he has been at 3 times in the last several weeks. He is currently on Xarelto which he started 2 days ago and metoprolol. Denies chest pain or significant shortness of breath. He is denies ever having a heart cath. Denies recent Prior Similar Symptoms: Yes Recent Illness/Hospitalization: No CVD Risk Factors: Positive for Hypertension PE Risk Factors: Negative for Recent Travel/Surgery, Recent Immobilization, Prior DVT or PE, Cancer or OCP + Smoking + >/=35 TAD Risk Factors: Positive for Marfan's Syndrome [facility] Medical History Abdominal cramps Abdominal pain Abnormal SPEP Alcohol use Arthritis Atrial fibrillation Back pain Sarah's esophagus BPH (benign prostatic hyperplasia) Cardiology follow-up encounter Chest pain CKD (chronic kidney disease), stage III Constipation Elevated liver enzymes Former smoker Gastritis, bile acid reflux Gastrointestinal problem Health care maintenance High blood pressure History of atrial fibrillation History of colon polyps History of echocardiogram History of stress test Hypertension Left atrial enlargement Left ventricular hypertrophy Mitral valve regurgitation Palpitations Home Medications silodosin 8 mg capsule 8 mg PO DAILY 07/05/22 [History Last Taken Unknown] inulin 2 gram chewable tablet (Fiber Gummies) 2 g PO DAILY 07/26/22 [History Last Taken Unknown] bisacodyl 5 mg tablet,delayed release (Dulcolax (bisacodyl)) 5 mg PO ONCE 01/23/23 [History Last Taken Unknown] aspirin 325 mg tablet,delayed release 325 mg PO DAILY #100 tabs 02/13/23 [Rx Last Taken Unknown] losartan 100 mg tablet 100 mg PO DAILY #90 tabs 02/13/23 [Rx Last Taken Unknown] pantoprazole 40 mg tablet,delayed release 40 mg PO DAILY 02/13/23 [History Last Taken Unknown] metoprolol succinate 50 mg tablet,extended release 24 hr 50 mg PO DAILY dose increased for a-fib #90 tabs 04/10/23 [Rx Last Taken Unknown] rivaroxaban 20 mg tablet (Xarelto) 20 mg PO DAILY #90 tabs 04/10/23 [Rx Last Taken Unknown] Allergy/AdvReac Type Severity Reaction Status Date / Time No Known Allergies Allergy Verified 04/12/23 01:40 Family History Sister Cancer stomach Other No pertinent family history Surgical History Amputation of left thumb H/O arthroscopy of left knee History of arthroscopy of right knee History of skin graft Hx of colonoscopy Social History Smoking Status: Former smoker how long ago did patient quit smokin years ago alcohol intake: current alcohol intake frequency: a few times a week Alcohol type: wine substance use type: does not use caffeine: Yes Type: coffee Number of servings: 2 what type of physical activity do you participate in: other details: leg stretches - toe touching frequency: 3-4 times per week ROS ROS ED ROS Narrative Palpitations. No recent illness. Review of Systems ROS Unobtainable: Denies due to encephalopathy Constitutional Constitutional ED: Denies chills or fever(s) Eyes Eyes: Reports none ENT ENT ED: Denies ear pain Cardiovascular Cardiovascular: Reports as per HPI and palpitations; Denies chest pain Respiratory/Chest Respiratory/Chest: Denies cough Gastrointestinal Gastrointestinal: Denies abdominal pain Genitourinary Genitourinary ED: Denies dysuria Musculoskeletal Musculoskeletal: Denies arthralgias Integumentary Denies abscess Neurologic Neurologic: Denies headache(s) Psychiatric Psychiatric: Denies anxiety Endocrine Endocrinology: Denies cold intolerance Hematologic/Lymphatic Hematologic/Lymphatic: Denies easy bleeding or easy bruising Allergic/Immunologic Allergic/Immunologic ED: Denies mouth swelling EXAM Physical Exam Narrative Exam Narrative: 70-year-old male vital signs stable he is afebrile he does not look septic or toxic. Heart rate 94. Initially A-fib on the monitor. No distress. present in room. H EENT exam unremarkable. Lungs clear to auscultation bilaterally. Heart irregular irregular rate about 100 no murmur. Looks like A-fib on the monitor. Abdomen soft nontender. Moving all 4 extremities. Calves are nontender without edema or cords. Neurologically is awake and alert with no focal motor deficits. Const Vital Signs: 04/12/23 01:35 04/12/23 01:37 Temperature 98 F Temperature Source Temporal Pulse Rate 94 Respiratory Rate 13 Respiratory Effort Normal Non-Labored Respiratory Pattern Normal Blood Pressure 158/102 H Blood Pressure Mean 120 Pulse Ox 97 Oxygen Delivery Method Room Air Positive well nourished and well developed; Negative for cachectic, contractures or unkempt General Appearance ED: well developed and NAD; Negative for unkempt, cachectic, contractures or pallor Nutritional Appearance: Negative for cachectic HEENT Reports moist mucous membranes normocephalic and atraumatic; Negative for trauma or tenderness Eyes PERRL and EOMs intact bilaterally General Eye ED: Negative for pale conjunctiva or scleral icterus Neck no lymphadenopathy, supple and no JVD General: Negative for tenderness Chest Wall inspection of chest normal and palpation of chest normal Chest: Negative for tenderness Resp normal respiratory effort and clear to auscultation bilaterally Effort and Inspection: Negative for respiratory distress Auscultation: Negative for rales, rhonchi or wheezes Cardio Negative for regular rate or regular rhythm Rhythm: abnormal rhythm GI normal to inspection, nondistended, normoactive bowel sounds, soft to palpation, non-tender, non-distended and no masses Back/Spine no CVA tenderness and no thoracic nor lumbar tenderness General Back: Negative for CVA tenderness Cervical Spine: Negative for cervical spine tenderness Extremity normal to inspection General Extremety ED: Negative for edema or pulses abnormal General Extremity: Negative for edema or pulses abnormal Neuro oriented x3 and CN's II-XII intact bilaterally Sensorium / Orientation: awake, alert, oriented to person, oriented to place and oriented to time; Negative for confused, lethargic or stuporous Motor Exam: strength 5/5 throughout Psych Appearance: Negative for unkempt Attitude: No agitated Mood & Affect: Negative for depressed, anxious or tearful Skin no rashes or lesions noted and no wounds General Skin Exam: Negative for jaundice or pallor Rashes: No rashes noted Trauma: Negative for abrasion or laceration MDM MDM MDM Narrative Medical decision making narrative: 72-year-old male with recurrent A-fib. He is on Xarelto. He is on metoprolol. He is not having any chest pain. His exam otherwise is benign other than A-fib. Ill, cardiac work-up. If his rate stays controlled and/or he spontaneously converts will be discharged to home. Repeat exam patient is doing well. He remains in A-fib his heart rates between 80 and 95. He is having no symptoms. He is already on metoprolol and Xarelto. He is got a controlled rate. He is symptom-free. To be discharged home with outpatient follow-up with his chain splitter. He is a scheduled nuclear stress test in the next week or so. He and his are comfortable with the plan. History & Record Review Discussion w/independent historian: Family Lab Data Attestation: I reviewed the patient's lab results. Lab results narrative: CBC unremarkable. White count of 7. H&H 14 and 41. Platelets 167. Electrolytes unremarkable gap of 7 normal BUN and creatinine. Glucose 121. Labs: Laboratory Results - last 24 hr 04/12/23 04/12/23 04/12/23 01:36 01:36 01:36 WBC 7.4 RBC 4.54 L Hgb 14.0 Hct 41.6 MCV 91.6 MCH 30.8 MCHC 33.7 RDW Std Deviation 40.6 RDW Coeff of Miles 12.1 Plt Count 167 MPV 9.4 Immature Gran % (Auto) 0.400 Neut % (Auto) 50.7 Lymph % (Auto) 33.9 [place] % (Auto) 13.2 H Eos % (Auto) 1.5 Baso % (Auto) 0.3 Absolute Neuts (auto) 3.7 Absolute Lymphs (auto) 2.49 Nucleated RBC % 0 Sodium 142 Potassium 3.8 Chloride 109 H Carbon Dioxide 26.0 Anion Gap 7 BUN 17 Creatinine 1.06 Estim Creat Clear Calc 69.14 Est GFR (MDRD) Af Amer 88 Est GFR (MDRD) Non-Af 73 BUN/Creatinine Ratio 16.0 Glucose 121 H Calcium 9.5 B-Natriuretic Peptide 83.5 Radiography Chest X-Ray - ED: 1 View, Read by ED Physician, Heart, Lungs, Mediastinum, Bony Structures, No Acute Disease and Chronic Changes Diagnostic Testing: Chest x-ray, portable, single view shows no acute abnormality. Neck silhouette. No CHF. No effusions. Interpreted by myself Portillo Rhythm Strip Rhythm Strip: A-fib Rate: 103 Ectopy: None EKG Initial EKG: Attestation: I personally reviewed and interpreted this EKG as follows: Interpretation: Atrial Fibrillation Comments: Atrial fibrillation rate of 103 no acute signs of ME or ischemia. Follow-up EKG: Attestation: I personally reviewed and interpreted this EKG as follows: Interpretation: No Acute Injury Pattern and Atrial Fibrillation Comments: Repeat EKG shows A-fib also rate 88. No change from the prior. Discharge Plan Triage Chief Complaint: Palpitations ED Provider: Angel Freeman Dx/Rx/DC Orders Clinical Impression: Atrial fibrillation Instructions: AFib Prescriptions: No Action Fiber Gummies 2 gram tablet,chewable 2 g PO DAILY silodosin 8 mg capsule 8 mg PO DAILY Rx Instructions: must administer with a meal/food bisacodyl [Dulcolax (bisacodyl)] 5 mg tablet,delayed release (DR/EC) 5 mg PO ONCE pantoprazole 40 mg tablet,delayed release (DR/EC) 40 mg PO DAILY aspirin 325 mg tablet,delayed release (DR/EC) 325 mg PO DAILY Qty: 100 4RF losartan 100 mg tablet 100 mg PO DAILY Qty: 90 3RF Xarelto 20 mg tablet 20 mg PO DAILY Qty: 90 3RF metoprolol succinate 50 mg tablet extended release 24 hr 50 mg PO DAILY Qty: 90 3RF Primary Care Provider: Ivan Murphy Referrals: Ann Marie Dia MD [Med Staff - Active Staff] - As soon as possible Ivan Murphy MD [Primary Care Provider] - Activity Restrictions/Additional Instructions: Continue your regular medications. As long as you are in A-fib as long as your rate is controlled consistently less than 100 and not consistently high and you not having a lot of symptoms you can remain home. Obviously if you develop a lot of chest pain, shortness of breath, low blood pressure or feeling worse she should be evaluated. Call and follow-up with your chain splitter. Disposition Disposition: Home, Self Care
--- NOTE | 2023-04-12 01:50 | EKG12_ITS ---
Test Reason : REPEAT EKG Blood Pressure : / mmHG Vent. Rate : 088 BPM Atrial Rate : 079 BPM P-R Int : 000 ms QRS Dur : 096 ms QT Int : 400 ms P-R-T Axes : 000 041 018 degrees QTc Int : 484 ms Atrial fibrillation Prolonged QT Abnormal ECG Confirmed by MICHELE KNIGHT, MELITA ([id number]), assignment desk editor VEGA JI ([id number]) on 04/13/2023 8:58:38 AM Referred By: LORNE Confirmed By:MELITA BAUTISTA MD
[2023-04-12 01:54] LABS: Absolute Lymphocyte Count 2.49 X10^3/uL (0.83-4.51); Absolute Neutrophil Count 3.7 X10^3/uL (2.0-7.7); Basophil# 0.02 X10^3/uL; Basophil% 0.3 % (0-1); Eosinophil# 0.11 X10^3/uL; Eosinophils% 1.5 % (0-5); Hematocrit 41.6 % (40-54); Lymphocyte # 2.49 X10^3/ul (0.83-4.51); Lymphocyte % 33.9 % (19-41); Mean Corp Hgb Conc 33.7 g/dL (32-36); Mean Corpuscular Hgb 30.8 pg (27.0-32.0); Mean Corpuscular Volume 91.6 fL (80-94); Mean Platelet Vol. 9.4 fl (6.2-12.0); Monocyte# 0.97 X10^3/uL; Monocyte% 13.2 % (0-10); NRBC Flagged by Analyzer 0 % (0-5); Neutrophil # 3.73 X10^3/uL (2.7-7.7); Neutrophil % 50.7 % (47-70); Platelet Count 167 K/mm3 (150-450); RBC Distribution Width CV 12.1 % (11.6-14.6); RBC Distribution Width SD 40.6 fl (35.1-43.9); Red Blood Count 4.54 M/mm3 (4.6-6.2); White Blood Count 7.4 K/mm3 (4.4-11.0)
--- NOTE | 2023-04-12 02:00 | RAD_ITS ---
EXAM: XR CHEST, 1 VIEW CLINICAL INDICATION: chest pain chest pain TECHNIQUE: Frontal view of the chest. COMPARISON: 04/10/2023. FINDINGS: LUNGS AND PLEURAL SPACES: Unremarkable. No consolidation or edema. No pneumothorax. No effusion. HEART: Unremarkable. Cardiac silhouette not enlarged. MEDIASTINUM: Central airways and mediastinal contour are unremarkable. BONES/JOINTS: There are multilevel degenerative changes in the visualized spine. SOFT TISSUES: Unremarkable. RAD/Chest 1 View (Portable) IMPRESSION: No acute findings in the chest. Electronically Signed: Manuelito Sloan MD at 3:05 EDT ,
[2023-04-12 02:07] LABS: Anion Gap 7 (5-15); BUN 17 mg/dL (7-18); Calcium,Total 9.5 mg/dL (8.5-10.1); Chloride 109 mmol/L (98-107); Creatinine, Serum 1.06 mg/dL (0.70-1.30); EST Glomerular Filtration Rate 73 mL/min (>60); Est Glom Filt Rate - Afr Amer 88 mL/min (>60); Estimated Creatinine Clearance 69.14 ml/min; Glucose 121 mg/dL (74-106); Potassium 3.8 mmol/L (3.5-5.1); Sodium Level 142 mmol/L (136-145)
[2023-04-12 02:13] LABS: BNP,B-Type NATRIURETIC PEPTIDE 83.5 pg/mL (0-100)
[2023-04-12 02:52] VITALS: BP 142/76; PULSE 83; RESP 16; O2SAT 98
== END 2023-04-12 02:53 | disposition home or self-care (01) ==
PROVIDERS: Emergency Provider Emergency Medicine; PCP Internal Medicine; Visit Provider Emergency Medicine
DX: I48.91 Unspecified atrial fibrillation (principal); Z79.4 Long term (current) use of insulin; N18.30 Chronic kidney disease, stage 3 unspecified; I12.9 Hypertensive chronic kidney disease with stage 1 through stage 4 chronic kidney disease, or unspecified chronic kidney disease; Q87.40 Marfan syndrome, unspecified; Z79.82 Long term (current) use of aspirin; Z79.01 Long term (current) use of anticoagulants; Z87.891 Personal history of nicotine dependence
CPT/HCPCS: 71045; 80048; 83880; 85025; 93005; 99283

== ENCOUNTER → 2023-04-18 | Outpatient (CLI) | payer MEDICARE, SELFPAY ==
[2023-04-18 11:56] LABS: Erythrocyte Sedimentation Rate 8 mm/hr (0-20)
[2023-04-18 11:57] LABS: Absolute Lymphocyte Count 1.68 X10^3/uL (0.83-4.51); Absolute Neutrophil Count 3.5 X10^3/uL (2.0-7.7); Basophil# 0.02 X10^3/uL; Basophil% 0.3 % (0-1); Eosinophil# 0.05 X10^3/uL; Eosinophils% 0.8 % (0-5); Hematocrit 44.8 % (40-54); Lymphocyte # 1.68 X10^3/ul (0.83-4.51); Lymphocyte % 26.8 % (19-41); Mean Corp Hgb Conc 33.5 g/dL (32-36); Mean Corpuscular Hgb 30.5 pg (27.0-32.0); Mean Corpuscular Volume 91.1 fL (80-94); Mean Platelet Vol. 9.9 fl (6.2-12.0); Monocyte# 1.06 X10^3/uL; Monocyte% 16.9 % (0-10); NRBC Flagged by Analyzer 0 % (0-5); Neutrophil # 3.45 X10^3/uL (2.7-7.7); Neutrophil % 54.9 % (47-70); Platelet Count 189 K/mm3 (150-450); RBC Distribution Width CV 11.8 % (11.6-14.6); Red Blood Count 4.92 M/mm3 (4.6-6.2); White Blood Count 6.3 K/mm3 (4.4-11.0)
[2023-04-18 12:22] LABS: ALB/GLOB Ratio 0.9 RATIO (0.9-2.4); AST(SGOT) 53 U/L (15-37); Alanine Aminotransfer ALT/SGPT 81 U/L (16-61); Albumin, Serum 3.4 g/dL (3.2-5.0); Alkaline Phosphatase 80 U/L (45-117); Amylase 40 U/L (25-115); Anion Gap 7 (5-15); BUN 20 mg/dL (7-18); BUN/Creat Ratio 18.5 RATIO (10-20); CRP < 2.90 mg/L (0.0-3.0); Calcium,Total 9.2 mg/dL (8.5-10.1); Chloride 108 mmol/L (98-107); Creatinine, Serum 1.08 mg/dL (0.70-1.30); EST Glomerular Filtration Rate 71 mL/min (>60); Est Glom Filt Rate - Afr Amer 86 mL/min (>60); Ferritin 835 ng/mL (26-388); Globulin 3.7 g/dL (2.2-4.2); Glucose 94 mg/dL (74-106); LDH 166 U/L (87-241); Lipase 53 U/L (13-75); Potassium 4.1 mmol/L (3.5-5.1); Protein, Total 7.1 g/dL (6.4-8.2); Sodium Level 143 mmol/L (136-145)
[2023-04-19 16:09] LABS: Albumin 3.4 g/dL (2.9-4.4); Alpha-1-Globulins 0.4 g/dL (0.0-0.4); Gamma Globulin 0.9 g/dL (0.4-1.8); Gastrin, Serum 64 pg/mL (0-115); IMMUNOFIXATION RESULT,S Comment: (.); Immunoglobulin A 138 mg/dL (61-437); Immunoglobulin G 859 mg/dL (603-1613); Immunoglobulin M 51 mg/dL (15-143); PROEL- TOTAL PROTEIN 6.7 g/dL (6.0-8.5)
== END | disposition home or self-care (01) ==
LOC: LAB 11:32
PROVIDERS: PCP Internal Medicine; Visit Provider Nurse Practitioner Adult Health
DX: R10.9 Unspecified abdominal pain (principal); I48.91 Unspecified atrial fibrillation; R63.4 Abnormal weight loss; I10 Essential (primary) hypertension
CPT/HCPCS: 36415; 80053; 82150; 82728; 82784; 82941; 83615; 83690; 84165; 85025; 85652; 86140; 86334

== ENCOUNTER → 2023-04-19 | Outpatient (CLI) | payer MEDICARE, SELFPAY ==
--- NOTE | 2023-04-19 17:27 | STRESSREP_ITS ---
Stress Test Report Exercise myocardial perfusion stress test. 72-year-old man with a history of chest pain Stress protocol: Resting EKG demonstrates normal sinus rhythm with a rate of 71 bpm resting blood pressure is 112/70 mmHg. The patient exercised according to the regular Scot protocol for a total duration of 7 minutes and 31 seconds attaining a maximum heart rate of 120 bpm which was 81% of maximum predicted heart rate; the maximum workload was 10.1 metabolic equivalents. At rest there were no ST or T wave changes noted to suggest ischemia and at peak exercise upsloping ST changes only were noted which did not meet the criteria for ischemia. No clinical angina was noted the test was terminated due to the target heart rate being achieved/fatig ue. The peak blood pressure was 162/46 mmHg. Rate-pressure product was 18,300. Myocardial perfusion protocol. 14.4 mCi of technetium 99m sestamibi was injected at rest. The patient exercised according to regular Scot protocol for total duration of 7 minutes and 31 seconds and at peak exercise 44.8 mCi of technetium 99m sestamibi was injected stress images were obtained stress and rest images were reconstructed in comparing the short axis vertical long and horizontal long axis. Gated images were also obtained. Perfusion SPECT analysis: Review of the stress images demonstrate normal uptake of tracer noted in all areas of the myocardium. The resting images similarly demonstrate normal uptake of tracer noted in all areas of the myocardium. No areas of reversibility are noted to suggest ischemia no previous infarct was noted. Gated SPECT analysis: The gated ejection fraction is 78%. Conclusion: Normal exercise myocardial perfusion stress test at a high workload Preserved ejection fraction.
== END | disposition home or self-care (01) ==
LOC: CVS 06:51
PROVIDERS: PCP Internal Medicine; Referring Provider Internal Medicine Cardiovascular Disease; Visit Provider Internal Medicine Cardiovascular Disease
DX: R07.9 Chest pain, unspecified (principal); I48.0 Paroxysmal atrial fibrillation; I11.9 Hypertensive heart disease without heart failure; I51.7 Cardiomegaly; I34.0 Nonrheumatic mitral (valve) insufficiency; R00.2 Palpitations
CPT/HCPCS: 78452; 93017; A9500; A4216

== ENCOUNTER → 2023-04-20 | Outpatient (CLI) | payer MEDICARE, SELFPAY ==
[2023-04-20 09:54] LABS: Iron 69 ug/dL (65-175); Iron Binding Capacity,Total 240 ug/dL (250-450); PERCENT IRON SATURATION 28.8 % (15.0-55.0)
[2023-04-21 05:07] LABS: Transferrin 207 mg/dL (177-329)
[2023-04-22 04:08] LABS: Carbohydrate AG 19-9 11 U/mL (0-35)
== END | disposition home or self-care (01) ==
PROVIDERS: PCP Internal Medicine; Referring Provider Nurse Practitioner Adult Health; Visit Provider Nurse Practitioner Adult Health
DX: R63.4 Abnormal weight loss (principal); R10.9 Unspecified abdominal pain; R79.89 Other specified abnormal findings of blood chemistry
CPT/HCPCS: 36415; 83540; 83550; 84466; 86301

== ENCOUNTER → 2023-05-08 | Outpatient (CLI) | payer MEDICARE, SELFPAY ==
--- NOTE | 2023-05-08 13:50 | ECHOCS_ITS ---
Reason For Study: Chest Pain Procedure This was a 2D Doppler, Color Flow transthoracic echocardiogram. Contrast injection was performed. Exam performed in department. Left Ventricle Normal size and thickness. The left ventricular ejection fraction is 65 %. Normal diastology for age. Right Ventricle Normal right ventricle. Atria The left and right atria are normal. Mitral Valve Trivial mitral valve insufficiency. Tricuspid Valve Mild tricuspid valve insufficiency. Right ventricular systolic pressure estimated to be 45 mmHg. Aortic Valve Trivial aortic valve insufficiency. Pulmonic Valve The pulmonic valve is not well visualized. Mild (1+) pulmonic valve insufficiency. Great Vessels Normal sized aortic root. Pericardium/Pleural No pericardial effusion. Medication 22 gauge I.V. with prn adaptor inserted into left arm. Diluted definity 3ml given slow IV push to enhance endocardial definition. MMode/2D Measurements & Calculations LVIDd: 4.7 cm IVSd: 0.82 cm Ao root diam: 3.4 cm LVIDs: 3.5 cm LVPWd: 1.1 cm LA dimension: 4.1 cm RVDd: 3.6 cm FS: 25.0 % LAV(MOD-bp): 63.8 ml LVAd ap4: 39.6 cm2 LVAd ap2: 38.7 cm2 LAV(MOD-bp) Indexed: 29.3 ml/m2 LVLd ap4: 9.4 cm LVLd ap2: 9.2 cm LAV(MOD-sp2): 65.5 ml EDV(MOD-sp4): 136.5 ml EDV(MOD-sp2): 137.0 ml LAV(MOD-sp4): 52.2 ml EDV(sp4-el): 141.7 ml EDV(sp2-el): 137.5 ml LVAs ap4: 19.1 cm2 LVAs ap2: 18.5 cm2 LVLs ap4: 7.0 cm LVLs ap2: 7.4 cm ESV(MOD-sp4): 47.4 ml ESV(MOD-sp2): 39.3 ml ESV(sp4-el): 44.5 ml ESV(sp2-el): 39.5 ml EF(MOD-sp4): 65.3 % EF(MOD-sp2): 71.3 % EF(sp4-el): 68.6 % SV(MOD-sp4): 89.1 ml SV(MOD-sp2): 97.7 ml SV(sp4-el): 97.2 ml LA A4 area: 20.2 cm2 RA A4 area: 17.6 cm2 TAPSE: 2.3 cm Time Measurements MV dec time: 0.23 sec Doppler Measurements & Calculations MV E max patric: 96.8 cm/sec Lat Peak E' Patric: 12.7 cm/sec Med Peak E' Patric: 12.5 cm/sec MV A max patric: 102.6 cm/sec E/E' lat: 7.6 E/E' med: 7.7 MV E/A: 0.94 MV V2 max: 119.6 cm/sec MV P1/2t max patric: 120.5 cm/sec Ao V2 max: 191.9 cm/sec MV max P.7 mmHg MV P1/2t: 87.9 msec Ao max P.7 mmHg MV V2 mean: 68.3 cm/sec Ao V2 mean: 130.2 cm/sec MV mean P.2 mmHg MV dec slope: 401.4 cm/sec2 Ao mean P.7 mmHg MV V2 VTI: 40.5 cm MVA(P1/2t): 2.5 cm2 Ao V2 VTI: 40.9 cm AV (velocity ratio): 0.87 LV V1 max: 160.0 cm/sec MR max patric: 512.2 cm/sec PA V2 max: 178.0 cm/sec LV V1 max P.2 mmHg MR max P.9 mmHg PA V2 mean: 119.0 cm/sec LV V1 mean P.6 mmHg LV V1 mean: 112.5 cm/sec LV V1 VTI: 35.6 cm TR max patric: 319.6 cm/sec TR max P.9 mmHg ECHO/Echo Complete W/ Contrast Interpretation Summary The left ventricular ejection fraction is 65 %. Mild tricuspid valve insufficiency. Right ventricular systolic pressure estimated to be 45 mmHg. Mild (1+) pulmonic valve insufficiency. Ordering Physician: Ann Marie Dia Referring Physician: Ivan Murphy Performed By: Jacob Flores RCS
== END | disposition home or self-care (01) ==
LOC: CVS 13:48
PROVIDERS: PCP Internal Medicine; Referring Provider Internal Medicine Cardiovascular Disease; Visit Provider Internal Medicine Cardiovascular Disease
DX: R07.9 Chest pain, unspecified (principal)
CPT/HCPCS: 93306; Q9957; A4216; C8929

== ENCOUNTER → 2023-05-12 | Outpatient (CLI) | payer MEDICARE, SELFPAY ==
[2023-05-16 16:09] LABS: Pancreatic Elastase, Fecal > 500 (>200)
[2023-05-18 12:09] LABS: Calprotectin, Stool 117 ug/g (0-120)
== END | disposition home or self-care (01) ==
LOC: LABSPEC 08:59
PROVIDERS: PCP Internal Medicine; Referring Provider Internal Medicine Gastroenterology; Visit Provider Internal Medicine Gastroenterology
DX: R19.7 Diarrhea, unspecified (principal); R10.9 Unspecified abdominal pain; K58.9 Irritable bowel syndrome, unspecified
CPT/HCPCS: 82653; 83630; 83993; 87177; 87209; 87329

== ENCOUNTER 2023-06-14 15:46 | Emergency (ER) | payer MEDICARE, SELFPAY ==
[2023-06-14 15:50] VITALS: BP 145/94; PULSE 92; RESP 18; TEMP 36.7; O2SAT 98; BMI 26.9
== END 2023-06-14 17:35 | disposition left against medical advice (07) ==
LOC: ED 17:40
PROVIDERS: PCP Internal Medicine
DX: Z53.21 Procedure and treatment not carried out due to patient leaving prior to being seen by health care provider (principal)

== ENCOUNTER → 2023-07-11 | Outpatient (CLI) | payer MEDICARE, SELFPAY ==
--- NOTE | 2023-07-11 13:40 | SP.MBSS_ITS ---
Modified Barium Swallow Patient Information Study Date: 07/11/23 Study Time: 13:00 Direct Billable Minutes: 75 Total Minutes procedure & reportin Diagnosis: Dysphagia R13.10 Referring Physician: Isai Gutiérrez Reason for Referral: Objectively assess swallow function, risk for aspiration and to determine recommendations for LRD and compensatory strategies to improve safety of swallow. Medical History: Patient is a 72 yo M w/ relevant PMHx re: arthritis, afib, Sarah's esophagus, CKD stage lll, Gastritis (bile acid reflux), high BP, HTN presents to [facility] for Modified Barium Swallow Study. Patient is established w/ Dr. Gutiérrez for Sarah's esophagus and gastritis. Patient reports trouble swallowing characterized by occasional coughing d/t food/drink going down the wrong pipe, tightest in the throat and globus sensation. Patient reports having to wash down the food as he feels it is stuck. Denies any pneumonia. Currently takes 2 pills/day for gastritis (bile acid reflux). Current Diet Ordered: Regular / Thin Dentition: WNL Mental Status: WNL Respiratory Status: Oxygenating on Room Air Penetration-Aspiration Scale Penetration-Aspiration Scale: OBJECTIVE ASSESSMENT OF SWALLOW FUNCTION (QUANTITATIVE ? PER TRIAL): PENETRATION / ASPIRATION SCALE (GARCIA): 1 = does not enter airway 2 = enters airway/above vocal folds/ejected 3 = enters airway/above vocal folds/not ejected 4 = enters airway/contacts vocal folds/ejected 5 = enters airway/contacts vocal folds/not ejected 6 = enters airway/below vocal folds/ejected 7 = enters airway/below vocal folds/not ejected despite effort 8 = enters airway/below vocal folds/no effort VIDEOFLOROSCOPIC SCALE SCORE (GARCIA): Grade I = aspiration of material that has penetrated into the laryngeal vestibule, intact cough reflex Grade II = aspiration < 10 % of the bolus, intact cough reflex Grade III = aspiration of < 10 % of the bolus, reduced cough reflex or aspiration of > 10 % of the bolus, intact cough reflex Grade IV = aspiration of > 10 % of the bolus, reduced cough reflex Penetration-Aspiration Scale Score Thin Liquid via teaspoon: Result: 1= does not enter airway Thin Liquid via teaspoon Trial 2: Result: 1= does not enter airway Thin Liquid via single sip from cup: Result: 1= does not enter airway Thin Liquid via single sip from cup Trial 2: Result: 1= does not enter airway Thin Liquid via sequential sips from cup: Result: 1= does not enter airway [place] Thick Liquid via single sip from cup: Result: 1= does not enter airway Honey Thick Liquid via single sip from cup: Result: 1= does not enter airway Pudding: Result: 1= does not enter airway Cookie: Result: 1= does not enter airway Thin Liquid via single sip from cup Trial 3: Result: 1= does not enter airway Oral Phase Labial Seal: No Labial Escape Tongue Control During Bolus Hold: Posterior escape of less than half of bolus Bolus Preparation/Mastication: Timely and efficient chewing and mashing Bolus Transport/Lingual Motion: Brisk tongue motion Oral Residue: Trace residue lining oral structures Pharyngeal Phase Initiation of Pharyngeal Swallow: Bolus head in valleculae Soft Palate Elevation: No bolus between soft palate and pharyngeal wall Laryngeal Elevation: Comp. Superior move thyroid cart w/comp. apprx arytenoid cart-epig pet Anterior Hyoid Excursion: Complete anterior movement Epiglottic Movement: Complete inversion Laryngeal Vestibule Closure at Height of Swallow: Complete; no air/contrast in laryngeal vestibule Pharyngeal Stripping Wave: Present - diminished Pharyngoesophageal Segment Opening: Parital distension and partial duration; parital obstruction of flow Tongue Base Retraction: Narrow column of contrast between tongue base & post. pharyngeal wall Pharyngeal Residue: Collection of residue within or on pharyngeal structures Esophageal Phase Esophageal Clearance: Esophageal retention w/ retrograde flow below pharyngoesophageal seg. Diagnosis/Impression Diagnosis: Esophogeal Dysphagia R13.14 Impression: Oral phase grossly WNL. Pharyngeal phase primarily marked by... - min to mod pharyngeal residue remaining in the vallecula and pyriforms attributed to reduced TB and diminished stripping wave. Increased pharyngeal residues in the vallecula w/ thicker viscosities (HTL, pudding). - reduced UES opening also contributing to pharyngeal residue in the pyriforms. - no penetration/aspiration observed w/ all consistencies. Esophageal retention w/ retrograde flow below the UES observed following trial of HTL via cup. Esophageal retention also observed following cookie trial. Independently cleared w/ additional swallow of cookie. Recommending to follow up w/ Dr. Gutiérrez. Communication left for Dr. Gutiérrez to call [employer] to discuss further tx for reflux/gastritis. Recommendations Diet: Regular Textures and Thin Liquids Compensatory Strategies: Small Bites, Small Sips, Multiple Swallows, Alternate bites/solids and sips/liquids, Sitting upright and Remain sitting upright for 30 minutes after PO intake Recommend Repeat Modified Barium Swallow: No Need for Skilled Speech Therapy Services: No Recommended Referrals: GI Consult Education Completed: 1. Described result of evaluation. and 4. Family/caregivers understand evaluation & agree w/ goals & tx plan. Status Active ST Patient: Active Contact Information [facility] Speech Therapy:: Leona Gonzales M.A. CCC-[employer] Speech-Language Pathologist [facility] [address] [place] [address] [email or web address] [phone]
== END | disposition home or self-care (01) ==
LOC: RAD 12:45
PROVIDERS: PCP Internal Medicine; Referring Provider Internal Medicine Gastroenterology; Visit Provider Internal Medicine Gastroenterology
DX: R13.10 Dysphagia, unspecified (principal)
CPT/HCPCS: 74230; 92611

== ENCOUNTER → 2023-07-14 | Outpatient (CLI) | payer MEDICARE, SELFPAY ==
[2023-07-14 15:24] LABS: Absolute Lymphocyte Count 2.04 X10^3/uL (0.83-4.51); Absolute Neutrophil Count 2.5 X10^3/uL (2.0-7.7); Basophil# 0.02 X10^3/uL; Basophil% 0.4 % (0-1); Eosinophil# 0.13 X10^3/uL; Eosinophils% 2.4 % (0-5); Hematocrit 36.6 % (40-54); Hemoglobin 12.1 g/dL (13.0-16.5); Lymphocyte # 2.04 X10^3/ul (0.83-4.51); Lymphocyte % 37.6 % (19-41); Mean Corp Hgb Conc 33.1 g/dL (32-36); Mean Corpuscular Hgb 29.7 pg (27.0-32.0); Mean Corpuscular Volume 89.7 fL (80-94); Mean Platelet Vol. 10.9 fl (6.2-12.0); Monocyte# 0.71 X10^3/uL; Monocyte% 13.1 % (0-10); NRBC Flagged by Analyzer 0 % (0-5); Neutrophil # 2.51 X10^3/uL (2.7-7.7); Neutrophil % 46.1 % (47-70); Platelet Count 127 K/mm3 (150-450); RBC Distribution Width CV 14.9 % (11.6-14.6); RBC Distribution Width SD 48.7 fl (35.1-43.9); Red Blood Count 4.08 M/mm3 (4.6-6.2); White Blood Count 5.4 K/mm3 (4.4-11.0)
[2023-07-14 15:51] LABS: ALB/GLOB Ratio 0.9 RATIO (0.9-2.4); AST(SGOT) 21 U/L (15-37); Alanine Aminotransfer ALT/SGPT 25 U/L (16-61); Albumin, Serum 2.9 g/dL (3.2-5.0); Alkaline Phosphatase 94 U/L (45-117); Anion Gap 4 (5-15); BUN 14 mg/dL (7-18); BUN/Creat Ratio 14.9 RATIO (10-20); Calcium,Total 8.8 mg/dL (8.5-10.1); Chloride 112 mmol/L (98-107); Creatinine, Serum 0.94 mg/dL (0.70-1.30); EST Glomerular Filtration Rate 84 mL/min (>60); Est Glom Filt Rate - Afr Amer 101 mL/min (>60); Globulin 3.1 g/dL (2.2-4.2); Glucose 102 mg/dL (74-106); Sodium Level 143 mmol/L (136-145)
== END | disposition home or self-care (01) ==
LOC: BIMLAB 13:49
PROVIDERS: PCP Internal Medicine; Referring Provider Internal Medicine; Visit Provider Internal Medicine
DX: I10 Essential (primary) hypertension (principal)
CPT/HCPCS: 36415; 80053; 85025

== ENCOUNTER → 2023-08-14 | Outpatient (CLI) | payer MEDICARE, SELFPAY ==
--- NOTE | 2023-08-14 14:52 | CT_ITS ---
STUDY: CT ABDOMEN AND PELVIS WITH CONTRAST REASON FOR EXAM: Male, 72 years old. Unintentional Weight Loss, Abdominal pain RADIATION DOSAGE (If Supplied By Facility): CTDIvol = ( 14.71 ) mGy, DLP = ( 621.07 ) mGycm TECHNIQUE: Oral and amp; IV Redi-CAT and amp; 100mL Isovue-370 was administered. Transaxial images were obtained from the dome of the diaphragm to the symphysis pubis in the portal venous phase. Multiplanar coronal and sagittal images were reformatted. Individualized Dose Optimization Techniques Were Used For This CT. COMPARISON: Prior study dated: 11/18/2022 FINDINGS: LOWER CHEST: Lung bases are clear. No cardiomegaly or pericardial effusion. Mild coronary artery calcifications are noted. LIVER: The liver is normal in size, shape, and attenuation. No focal mass. GALLBLADDER AND BILIARY TREE: The gallbladder is normally distended. No gallstones. No gallbladder wall thickening or edema. No pericholecystic fluid. No intra- or extrahepatic biliary ductal dilation. PANCREAS: No focal cystic or solid mass. SPLEEN: Normal size without focal cystic or solid mass. ADRENAL GLANDS: No nodules. KIDNEYS AND URETERS: Normal renal size and position. No hydronephrosis or nephrolithiasis. PERITONEUM: No ascites or free air. No other fluid collection. BOWEL: The stomach is unremarkable. Normal caliber small bowel. There is no obstruction. Mild to moderate diffuse colonic stool burden. No colonic wall thickening or inflammation. Scattered colonic diverticulosis. No free air or free fluid. No evidence of acute appendicitis. LYMPH NODES: No enlarged mesenteric or retroperitoneal lymph nodes. VESSELS: The aorta is normal in caliber with mild atherosclerotic calcification. URINARY BLADDER: Unremarkable. REPRODUCTIVE ORGANS: No pelvic masses. ABDOMINAL WALL: Small fat-containing left inguinal hernia. BONES: No acute or suspicious osseous abnormality. Degenerative changes throughout the spine. Mild degenerative changes in the hips. CT/Abdomen/Pelvis WITH Contrast IMPRESSION: No acute finding in the abdomen or pelvis. No inflammatory change. No mass. Electronically Signed: Neo Laureano MD at 3:38 EDT ,
== END | disposition home or self-care (01) ==
LOC: CT 14:52
PROVIDERS: PCP Internal Medicine; Referring Provider Internal Medicine; Visit Provider Internal Medicine
DX: R63.4 Abnormal weight loss (principal); R10.9 Unspecified abdominal pain
CPT/HCPCS: 74177; Q9967

== ENCOUNTER → 2023-10-20 | Outpatient (CLI) | payer MEDICARE, SELFPAY ==
[2023-10-20 12:27] LABS: ALB/GLOB Ratio 1.3 RATIO (0.9-2.4); AST(SGOT) 22 U/L (15-37); Alanine Aminotransfer ALT/SGPT 32 U/L (16-61); Albumin, Serum 3.8 g/dL (3.2-5.0); Alkaline Phosphatase 124 U/L (45-117); Anion Gap 4 (5-15); BUN 15 mg/dL (7-18); BUN/Creat Ratio 14.2 RATIO (10-20); Calcium,Total 8.8 mg/dL (8.5-10.1); Chloride 106 mmol/L (98-107); Creatinine, Serum 1.06 mg/dL (0.70-1.30); EST Glomerular Filtration Rate 73 mL/min (>60); Est Glom Filt Rate - Afr Amer 88 mL/min (>60); Globulin 2.9 g/dL (2.2-4.2); Glucose 88 mg/dL (74-106); Potassium 3.8 mmol/L (3.5-5.1); Protein, Total 6.7 g/dL (6.4-8.2); Sodium Level 140 mmol/L (136-145)
== END | disposition home or self-care (01) ==
LOC: BIMLAB 09:29
PROVIDERS: PCP Internal Medicine; Referring Provider Internal Medicine; Visit Provider Internal Medicine
DX: I10 Essential (primary) hypertension (principal)
CPT/HCPCS: 36415; 80053

== ENCOUNTER → 2024-01-18 | Outpatient (CLI) | payer MEDICARE, SELFPAY ==
[2024-01-18 15:38] LABS: Absolute Lymphocyte Count 1.95 X10^3/uL (0.83-4.51); Absolute Neutrophil Count 3.6 X10^3/uL (2.0-7.7); Basophil# 0.02 X10^3/uL; Basophil% 0.3 % (0-1); Eosinophil# 0.15 X10^3/uL; Eosinophils% 2.4 % (0-5); Hematocrit 41.2 % (40-54); Lymphocyte # 1.95 X10^3/ul (0.83-4.51); Lymphocyte % 30.6 % (19-41); Mean Corpuscular Hgb 31.6 pg (27.0-32.0); Monocyte# 0.59 X10^3/uL; Monocyte% 9.2 % (0-10); NRBC Flagged by Analyzer 0 % (0-5); Neutrophil # 3.63 X10^3/uL (2.7-7.7); Neutrophil % 56.9 % (47-70); Platelet Count 192 K/mm3 (150-450); RBC Distribution Width CV 12.4 % (11.6-14.6); RBC Distribution Width SD 42.6 fl (35.1-43.9); Red Blood Count 4.43 M/mm3 (4.6-6.2); White Blood Count 6.4 K/mm3 (4.4-11.0)
[2024-01-18 16:44] LABS: ALB/GLOB Ratio 1.1 RATIO (0.9-2.4); AST(SGOT) 23 U/L (15-37); Alanine Aminotransfer ALT/SGPT 35 U/L (16-61); Albumin, Serum 3.7 g/dL (3.2-5.0); Alkaline Phosphatase 124 U/L (45-117); Anion Gap 4 (5-15); BUN 13 mg/dL (7-18); BUN/Creat Ratio 11.7 RATIO (10-20); Calcium,Total 8.8 mg/dL (8.5-10.1); Chloride 108 mmol/L (98-107); Creatinine, Serum 1.11 mg/dL (0.70-1.30); EST Glomerular Filtration Rate 69 mL/min (>60); Est Glom Filt Rate - Afr Amer 83 mL/min (>60); Globulin 3.4 g/dL (2.2-4.2); Glucose 141 mg/dL (74-106); PSA,Total - Annual Screen 0.21 ng/mL (0.00-4.00); Potassium 4.6 mmol/L (3.5-5.1); Protein, Total 7.1 g/dL (6.4-8.2); Sodium Level 139 mmol/L (136-145)
--- OUTSIDE RECORDS SUMMARY | 2024-01-18 20:32 | XMS RPT_ITS | CCD ---
Author Name Unknown Address [address] [facility] [address] [place] [address] Organization [facility] Care Team Providers Care Telegraphic Typewriter Repairer Name Role Phone HORACIOZINGER, COOPER Unavailable Unavailable IMCA Unavailable Unavailable LANZINGER, COOPER Unavailable Unavailable LANZINGER, COOPER Unavailable Unavailable LANZINGER, COOPER Unavailable Unavailable LANZINGER, COOPER Unavailable Unavailable LANZINGER, COOPER Unavailable Unavailable LANZINGER, COOPER Unavailable Unavailable IMCA Unavailable Unavailable LANZINGER, COOPER Unavailable Unavailable LANZINGER, COOPER Unavailable Unavailable LANZINGER, COOPER Unavailable Unavailable IMCA Unavailable Unavailable LANZINGER, COOPER Unavailable Unavailable Unavailable Primary Care Provider UnavailJERRI Wing Referring Unavailable JERRI BADILLO Referring Unavailable Ivan Murphy MD Primary Care Provider [phone] Ann Marie Woodall MD Unavailable Friend Isai BARR Unavailable [phone] Nahun Oh MD Unavailable Ann Marie Woodall MD Unavailable Friend Isai BARR Unavailable Nahun Oh MD Unavailable [phone] CAROL MONTGOMERY Attending Unavailable CAROL MONTGOMERY Admitting Unavailable DAVID MURPHYONGBE B Primary Care Unavailable CAROL MONTGOMERY Attending Unavailable ANN MARIE WOODALL Referring Unavailable DAVID MURPHYONGBE B Primary Care Unavailable RASHI LANE Attending Unavailable AUDREY MURPHYBE B Primary Care Unavailable Medications Completed/Discontinued Medications Medication Drug Class(es) Dates Sig (Normalized) Sig (Original) bisacodyl 5 mg delayed release oral tablet (2 sources) Stimulant Laxative Start: 07-05-2022 take 1 tablet by mouth once daily as needed for constipation bisacodyl EC (DULCOLAX) 5 mg EC tablet Take 5 mg by mouth once daily as needed for constipation. 0 07/05/2022 Active Problems Active Problems Problem Classification Problem Date Documented Da te Episodic/Chronic Cardiac dysrhythmias (8 sources) Paroxysmal atrial fibrillation; Translations: [Paroxysmal atrial fibrillation] Onset: 06-16-2023 06-16-2023 Chronic Chronic kidney disease (2 sources) Chronic kidney disease stage 3; Translations: [Stage 3 chronic kidney disease] Onset: 06-16-2023 06-16-2023 Chronic Esophageal disorders (2 sources) Sarah's esophagus; Translations: [Sarah's esophagus without dysplasia] Onset: 01-21-2023 06-19-2023 Chronic Essential hypertension (3 sources) Essential hypertension; Translations: [Essential (primary) hypertension] Onset: 01-27-2021 06-16-2023 Chronic Heart valve disorders (2 sources) Mitral valve regurgitation; Translations: [Nonrheumatic mitral (valve) insufficiency] Onset: 04-25-2023 06-19-2023 Chronic Hyperplasia of prostate (2 sources) Benign prostatic hyperplasia; Translations: [Benign prostatic hyperplasia without lower urinary tract symptoms] Onset: 06-16-2023 06-16-2023 Chronic Osteoarthritis (2 sources) Arthritis; Translations: [Unspecified osteoarthritis, unspecified site] Onset: 06-16-2023 06-16-2023 Chronic Other and ill-defined heart disease (2 sources) Left ventricular hypertrophy; Translations: [Cardiomegaly] Onset: 04-25-2023 06-19-2023 Chronic Other gastrointestinal disorders (2 sources) Irritable bowel syndrome; Translations: [Irritable bowel syndrome without diarrhea] Onset: 06-19-2023 06-19-2023 Chronic Other nutritional; endocrine; and metabolic disorders (1 source) Hypomagnesemia; Translations: [Hypomagnesemia] Onset: 10-31-2022 Chronic Other screening for suspected conditions (not mental disorders or infectious disease) (2 sources) Abnormal results of thyroid function studies; Translations: [Abnormal results of liver function studies] Onset: 10-28-2022 Episodic Thyroid disorders (1 source) Thyrotoxicosis, unspecified without thyrotoxic crisis or storm; 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] Onset: 10-28-2022 Chronic Unclassified (1 source) Unknown / UNK(Unknown) Onset: 04-18-2018 Past or Other Problems Problem Classification Problem Date Documented Da te Episodic/Chronic Cardiac dysrhythmias (5 sources) Palpitations; Translations: [Palpitations] Onset: 09-23-2022 06-19-2023 Episodic Gastritis and duodenitis (2 sources) Bile-induced gastritis; Translations: [Other gastritis without bleeding] Onset: 01-21-2023 06-19-2023 Episodic Nonspecific chest pain (2 sources) Chest pain; Translations: [Chest pain, unspecified] Onset: 07-15-2022 06-16-2023 Episodic Open wounds of extremities (3 sources) Open wound of finger; Translations: [Unspecified open wound of other finger without damage to nail, initial encounter] Onset: 04-18-2018 04-18-2018 Episodic Other aftercare (3 sources) Long-term current use of anticoagulant; Translations: [long term acute care registered nurse (current) use of anticoagulants] Onset: 06-16-2023 06-16-2023 Episodic Other aftercare (1 source) care home (current) use of anticoagulants; Translations: [Anticoagulant long-term use] Onset: 06-16-2023 Episodic Other and unspecified benign neoplasm (2 sources) History of polyp of colon; Translations: [Personal history of colonic polyps] Onset: 01-10-2022 06-16-2023 Episodic Residual codes; unclassified (4 sources) Other specified personal risk factors, not elsewhere classified; Translations: [Other specified personal history presenting hazards to health] Onset: 06-16-2023 06-16-2023 Episodic Screening and history of mental health and substance abuse codes (2 sources) Ex-cigarette smoker; Translations: [Personal history of nicotine dependence] Onset: 01-27-2021 06-16-2023 Episodic Spondylosis; intervertebral disc disorders; other back problems (2 sources) Back problem; Translations: [Dorsopathy, unspecified] Onset: 06-19-2023 06-19-2023 Episodic Unclassified (1 source) Unspecified open wound of other finger without damage to nail, initial encounter Onset: 04-18-2018 Results Test Name Value Interpretation Reference Range Facil ity Vital Signs Date Time Vital Sign Value Performing Clinician Faci lity 06-19-2023 11:26-0400 Body height 182.9 cm Carol Montgomery MD Work Phone: [facility] 06-19-2023 11:26-0400 Body weight 87.09 kg Carol Montgomery MD Work Phone: [facility] 06-19-2023 11:26-0400 Diastolic blood pressure 76 mm[Hg] Carol Montgomery MD Work Phone: [facility] 06-19-2023 11:26-0400 Heart rate 75 /min Carol Montgomery MD Work Phone: [facility] 06-19-2023 11:26-0400 SaO2% (BldA) [Mass fraction] 98 % Carol Montgomery MD Work Phone: [facility] 06-19-2023 11:26-0400 Systolic blood pressure 138 mm[Hg] Carol Montgomery MD Work Phone: [facility] Encounters Encounter Date Encounter Type Care Provider Facility Start: 12-04-2023 End: 12-05-2023 ambulatory CAROL MONTGOMERY Facility:[facility] Start: 11-29-2023 End: 11-29-[address] Facility:[facility] Start: 10-03-2023 Patient encounter procedure [facility] Provider [facility] Department Start: 06-19-2023 End: 06-19-2023 ambulatory CAROL MONTGOMERY Facility:[facility] Start: 06-19-2023 End: 06-19-2023 Patient encounter procedure Carol Montgomery MD Work Phone: [facility] Procedures Date Procedure Procedure Detail Performing Clinician Start: 12-04-2023 Antibody screen CAROL MONTGOMERY Plan of Treatment Date Care Activity Detail Author Start: 01-28-2026 Lipid 1996 panel - S ariella or Plasma Lipid Screening [facility] Start: 01-28-2026 LIPID SCREEN LIPID SCREEN [facility] Start: 10-31-2025 DIABETES SCREEN DIABETES SCREEN [facility] Start: 10-31-2025 Diabetes Screening Diabetes Screenin g [facility] Start: 10-31-2023 SERUM CREATININE SERUM CREATININE Cl [facility] Start: 09-23-2023 HEMOGLOBIN/HEMATOCRIT HEMOGLOBIN/HEM ATOCRIT [facility] Start: 07-21-2023 Covid-19 Vaccine ( season) Covid-19 Vaccine ( season) [facility] Start: 07-21-2023 Influenza vaccination [facility] Start: 01-17-2023 COVID-19 VACCINE (5 - Pfizer series) COVID-19 VACCINE (5 - Pfizer series) [facility] Start: 11-20-2022 ADVANCE DIRECTIVE DISCUSSION ADVANCE DIRECTIVE DISCUSSION [facility] Start: 11-20-2022 DEPRESSION ASSESSMENT DEPRESSION ASS ESSMENT [facility] Start: 07-21-2022 Influenza vaccination INFLUENZA (Sea son Ended) [facility] Start: 11-20-2021 ADVANCE DIRECTIVE DISCUSSION ADVANCE DIRECTIVE DISCUSSION [facility] Start: 2015 PNEUMOVAX AGE 65 AND OVER WITH 5YR LOOKBACK (#1) PNEUMOVAX AGE 65 AND OVER WITH 5YR LOOKBACK (#1) [facility] Start: 2010 RSV Vaccine (1 - 1-d ose 60+ series) RSV Vaccine (1 - 1-dose 60+ series) [facility] Start: 2000 Influenza vaccination LUNG CANCER [facility] Start: 2000 SHINGRIX VACCINE (1 of 2) SHINGRIX V ACCINE (1 of 2) [facility] Start: 1995 COLOGUARD (FIT-DNA) COLOGUARD (FIT-D NA) [facility] Start: 1995 Colonoscopy COLONOSCOPY [facility] Start: 1995 COLORECTAL CANCER SCREENING COLORECTAL CANCER SCREENING [facility] Start: [address] COLONOGRAPHY [facility] Start: 1995 DIABETES SCREEN DIABETES SCREEN [facility] Start: 1995 FECAL OCCULT BLOOD FECAL OCCULT BLOO D [facility] Start: 1995 SIGMOIDOSCOPY SIGMOIDOSCOPY [facility] Start: 1985 LIPID SCREEN LIPID SCREEN [facility] Start: 1969 Urine microalbumin profile [facility] Start: 1968 ANNUAL PCP TEAM TELECOMMUNICATION TOWER TECHNICIAN PAULINE DISEASE VISIT ANNUAL PCP TEAM CHRONIC DISEASE VISIT [facility] Start: 1968 BP CONTROLLED (<130/80) BP CONTROLLE D (<130/80) [facility] Start: 1968 HEPATITIS C SCREENING HEPATITIS C [facility] Start: 1962 Adult depression scr [facility] assessment DEPRESSION SCREENING [facility] Start: 1956 Pneumococcal Vaccine : 65+ (1 - PCV) Pneumococcal Vaccine: 65+ (1 - PCV) [facility] Start: 1956 PNEUMOCOCCAL: 65+ (1 - PCV) PNEUMOCOCCAL: 65+ (1 - PCV) [facility] Start: 1955 COVID-19 VACCINE (#1) COVID-19 VACCI NE (#1) [facility] Start: 1955 COVID-19 VACCINE (1) COVID-19 VACCIN E (1) [facility] Start: 1950 ABDOMINAL AORTIC ANE URYSM SCREENING ABDOMINAL AORTIC ANEURYSM SCREENING [facility] [place] [facility] Payers Date Payer Category Payer Medicare HUMANA MEDICARE HUMANA MEDICARE PPO [id number] 2022-Present [phone] [address] [address] [place] [address] PPO [id number] 2022 Medicare [id number] 2021 Medicare [id number] 2018 Unknown HOSPITAL[facility] GENERIC MEDICAL GENERIC [id number] 2018-Present [phone] [address] [place] [address] Indemnity [id number] 2018 Unknown [id number] 2018 Unknown HOSPITAL/MEDICAL GENERIC MEDICAL GENERIC [id number] 2018-Present [phone] [address] [place] [address] Indemnity [id number] 2015 Medicare [id number] 2015 Medicare MEDICARE MEDICAR E A AND B [id number] 2015-Present [phone] [address] [address] [place] [address] Medicare [id number] Social History Date Type Detail Facility Start: 04-23-2018 Tobacco smoking stat us NHIS Smokes tobacco daily [facility] Work Phone: History of tobacco use Cigarette Smoker [facility] Work Phone: Start: 04-23-2018 End: 06-19-2023 Cigarettes smoked current (pack per day) - Reported 1.5 [facility] Start: 04-23-2018 Tobacco use and exposure Smokeless tobacco non-user [facility] Work Phone: Start: 06-27-2018 Alcohol intake Current drinke r of alcohol (finding) [facility] Start: 04-23-2018 History SDOH Alcohol Comment a case a week [facility] Start: 04-23-2018 Tobacco Comment Quit 20 years ago [facility] Start: 1950 Sex Assigned At Not on file [facility] Start: 06-26-2023 Alcohol intake Ex-drinker (finding) [facility] Start: 06-19-2023 End: 06-26-2023 Tobacco use panel [facility] National Score (1-10 0), lower number is lower risk 87 [facility] Clinical Note 12-04-2023 Note Date & Type Note Facility 12-04-2023 Note HNO ID: [id number] Author: MARILU CHOWDARY LSW Service: Care Management Author Type: Green Material Value Added Assessor Type: Care Mgt Initial Assessment Filed: 12/04/2023 21:39 Note Text: CARE MANAGEMENT: ASSESSMENT AND DISCHARGE PLAN SERVICE DATE: December 04, 2023 SERVICE TIME: 9:36 PM PCP: Ivan Murphy MD Primary Contact: Extended Emergency Contact Information Primary Emergency Contact: Janet Jett Address: [address] [place] [address] Mobile Relation: Spouse Admission Status: Ambulatory Surgery Insurance Provider: HUMANA MEDICARE PPO Discharge Planning requested by: Per Department Practice Potential Transition Plans Home Advance Directives Current Advance Directive: None Current Living Arrangements and Support Type of Residence: Private Residence (House) Support: Spouse/significant other Current Services/Equipment Current Post-Acute Service(s): None [place] of Choice Explained: [place] of Choice Given: No Reason Not Given: No placements necessary Are you interested in bedside delivery of your medications? No Discharge Planning Participant(s): Patient Patient/Family Comments: Caregiver Assessment: Caregiver is ready, willing and able to meet the patient's needs as recommended by the inter-professional team: No Caregiver needed Transport at Discharge: Transportation Arrangements: Car Needs Prior to Discharge: Needs Prior to Discharge: To Be Determined Post-Acute Discharge Plan: Patient is present to [facility] due to concerns of A-Fib. Patient appears to have no significant past medical history. + PCP, + Rx coverage. Reagan appears to have no psychosocial issues impacting discharge. This patient has been screened for Care Management Transitional Planning Services. At this time, it does not appear this patient will require transition planning services. Should this change, and the patient require transition planning services during this admission, please contact Case Management. Plan for patient to discharge home when medically ready. SW will continue to follow clinical course. SIGNATURE: STEF Christopher PATIENT NAME: Maxi Jett DATE: December 04, 2023 TIME: 9:36 PM CONTACT #: [phone] [facility] Clinical Note 12-04-2023 Note Date & Type Note Facility 12-04-2023 Note HNO ID: [id number] Author: YUVAL BRAVO APRN.KIANA Service: Anesthesiology Author Type: Nurse Hand Expansion Envelope Maker Type: Anesthesia Procedure Notes Filed: 12/04/2023 09:10 Note Text: ANESTHESIOLOGY PROCEDURE NOTE Airway General Information Procedure Start Time/Medication Administration: 12/04/2023 8:47 AM Patient location during procedure: OR Timeout Performed Pre-procedure: timeout performed Consent Obtained: Yes Patient identity confirmed: arm band Staffing Performed by: VICE PRESIDENT OF HUMAN RESOURCES Indications and Patient Condition Indications for airway management: anesthesia Preoxygenated: yes anesthesia circuit Patient position: sniffing Method: asleep Difficult Mask: No Final Airway Details Final airway type: endotracheal airway Final Endotracheal Airway: ETT Cuffed: yes Successful intubation technique: direct laryngoscopy Endotracheal tube insertion site: oral Blade: Carrington Blade size: #2 ETT size (mm): 8.0 Measurement (cm): 24 Placement verified by: capnometry Cormack-Lehane Classification: grade I - full view of glottis Number of attempts at approach: 1 Airway not difficult SIGNATURE: Yuval Bravo APRN.VICE PRESIDENT OF HUMAN RESOURCES PATIENT NAME: Maxi Jett DATE: December 04, 2023 TIME: 9:09 AM CSN: [id number] [facility] Progress note 11-29-2023 Note Date & Type Note Facility 11-29-2023 Note HNO ID: [id number] Author: RASHI LANE APRN.CNP Service: ? Author Type: Nurse Practitioner Type: Progress Notes Filed: 11/29/2023 16:11 Note Text: [facility] Cardiology Electrophysiology PRIMARY CARE PHYSICIAN: Ivan Murphy ([facility]) [address] [place] [address] CHIEF COMPLAINT: History and physical update prior to PVI with Dr. Montgomery on 12/04/2023. HISTORY OF PRESENT ILLNESS copied from Dr. Montgomery's office note on 06/19/2023: Mr. Jett is a 72 year old male who presents today for evaluation of arrhythmia, referred by Dr. Woodall of [facility]. Mr. Jett states that he was diagnosed with atrial fibrillation about 4 years ago. He underwent an arthroscopic procedure for his knee, was noted to have arrhythmia with tachycardia. He was evaluated by a landscape crew member, Dr. Badillo, and was diagnosed with atrial fibrillation. He was treated with various medications for the atrial fibrillation, including at some point amiodarone. He believes that he was on the amiodarone for about 3 years. He was treated with oral anticoagulation medication, Xarelto, but this was discontinued after he had hemorrhage after a colonoscopy. The amiodarone was discontinued in August 2022 when he had elevated liver enzymes. From the GI standpoint, he states that there were issues with his stomach and also an ulcer of the small intestine. He states that he has lost about 55 pounds since September 2022, unintentionally and he attributes this to not feeling well after an antiacid medication was decreased (pantoprazole). He states he quit drinking beer in about September 2022, he had previously been drinking about five or six beers daily. He states that this might also be a reason for the weight loss. At that time he was experiencing chest pain, and was found to have esophagitis and also Sarah's esophagitis. He states he uses a Kardia monitor, and documented atrial fibrillation in the second week of March. He has at times felt poorly, and documented heart rates in the 40s bpm range. He experiences exertional shortness of breath. He denies chest pain, orthopnea, PND, syncope. He has been back on the Xarelto without bleeding issues. He presents now to discuss the treatment options for the atrial fibrillation. I have confirmed and edited as necessary, the PFSH and ROS obtained by others. Interval History: Mr. Jett is a pleasant 73-year-old gentleman who presents today accompanied by his for history and physical update prior to PVI with Dr. Montgomery on 12/04/2023. Overall patient reports he feels tired most of the time. He is able to perform his activities for about an hour and then he has to take a break. He does have left upper chest dull pain that occasionally radiates to his left arm. He believes this is from history of Sarah's esophagus. Stress test from 04/19/2023 revealed normal exercise myocardial perfusion. Patient had dental work done with extraction in October 2023 and reports he restarted his Xarelto on 11/12/2023. As ablation is scheduled for 12/04/2023 there will be a total of 23 days since he has restarted his Xarelto meeting 3-week criteria without any missed doses. I did call Dr. Woodall's office. I spoke with Olive BARBER and requested echo from 05/08/2023 be faxed over. Lengthy discussion was had with patient and spouse regarding what to expect pre-/intra-/post procedure. Topics included procedure overview, general anesthesia, pathophysiology of both atrial flutter and atrial fibrillation, overnight stay in [facility], risk/benefits, medications, post restrictions, and follow-up. Benefit being best intervention for long-term potential maintenance of normal sinus rhythm. Low potential risk for bleeding, stroke, or . Patient was instructed to eat and drink well day before procedure with nothing after midnight except for medications with small sips of water morning of procedure. Medications, allergies, and medical history were reviewed with patient. Twelve-lead EKG performed in office showed atrial fibrillation with ventricular rate of 91. Patient and spouse indicated I had answered all their questions and they had nothing further at this time. Patient verbalized desire to move forward with procedure. PAST MEDICAL HISTORY Diagnosis Date Anticoagulant long-term use 06/16/2023 At risk for stroke 06/16/2023 Sarah's esophagus Chest pain Known health problems: none Obese PAF (paroxysmal atrial fibrillation) (HCC) Palpitations Paroxysmal atrial fibrillation (HCC) 06/16/2023 Tobacco abuse Typical atrial flutter (HCC) 06/19/2023 PAST SURGICAL HISTORY Procedure Laterality Date CATARACT EXTRACTION HX Bilateral cataracts DENTAL SURGERY PROCEDURE Dental implants HAND SURGERY HX Right KNEE SURGERY HX Bilateral arthroscopic surgery STRESS TEST NUCLEAR 04/19/2023 [facility] (more content not included)... [facility] Progress note 06-19-2023 Note Date & Type Note Facility 06-19-2023 Note HNO ID: [id number] Author: Carol Montgomery MD Service: ? Author Type: Physician Type: Progress Notes Filed: 06/26/2023 3:59 PM Note Text: PRIMARY CARE PHYSICIAN: Ivan Murphy ([facility]) [address] [facility] [place] [address] REFERRING PHYSICIAN: Ann Marie Woodall [address] [facility] [address] [facility] [address] Patient Care Team: Ivan Murphy MD as PCP - General (Internal Medicine) Ann Marie Woodall MD as Specialty Pattern Duplicator (Cardiology) Friend, Isai Jenkins DO as Specialty Pattern Duplicator (Gastroenterology) Nahun Oh MD as Specialty Pattern Duplicator (Urology) CHIEF COMPLAINT: Evaluation for arrhythmia HISTORY OF PRESENT ILLNESS: Mr. Jett is a 72 year old male who presents today for evaluation of arrhythmia, referred by Dr. Woodall of [facility]. Mr. Jett states that he was diagnosed with atrial fibrillation about 4 years ago. He underwent an arthroscopic procedure for his knee, was noted to have arrhythmia with tachycardia. He was evaluated by a landscape crew member, Dr. Badillo, and was diagnosed with atrial fibrillation. He was treated with various medications for the atrial fibrillation, including at some point amiodarone. He believes that he was on the amiodarone for about 3 years. He was treated with oral anticoagulation medication, Xarelto, but this was discontinued after he had hemorrhage after a colonoscopy. The amiodarone was discontinued in August 2022 when he had elevated liver enzymes. From the GI standpoint, he states that there were issues with his stomach and also an ulcer of the small intestine. He states that he has lost about 55 pounds since September 2022, unintentionally and he attributes this to not feeling well after an antiacid medication was decreased (pantoprazole). He states he quit drinking beer in about September 2022, he had previously been drinking about five or six beers daily. He states that this might also be a reason for the weight loss. At that time he was experiencing chest pain, and was found to have esophagitis and also Sarah's esophagitis. He states he uses a Kardia monitor, and documented atrial fibrillation in the second week of March. He has at times felt poorly, and documented heart rates in the 40s bpm range. He experiences exertional shortness of breath. He denies chest pain, orthopnea, PND, syncope. He has been back on the Xarelto without bleeding issues. He presents now to discuss the treatment options for the atrial fibrillation. I have confirmed and edited as necessary, the PFSH and ROS obtained by others. PAST MEDICAL HISTORY Diagnosis Date Anticoagulant long-term use 06/16/2023 At risk for stroke 06/16/2023 Sarah's esophagus Chest pain Known health problems: none Obese PAF (paroxysmal atrial fibrillation) (HCC) Palpitations Paroxysmal atrial fibrillation (HCC) 06/16/2023 Tobacco abuse Typical atrial flutter (HCC) 06/19/2023 PAST SURGICAL HISTORY Procedure Laterality Date CATARACT EXTRACTION HX Bilateral cataracts DENTAL SURGERY PROCEDURE Dental implants HAND SURGERY HX Right KNEE SURGERY HX Bilateral arthroscopic surgery STRESS TEST NUCLEAR 04/19/2023 [facility] SOCIAL HISTORY Social History Tobacco Use Smoking status: Every Day Packs/day: 1.50 Years: 25.00 Total pack years: 37.50 Types: Cigarettes Smokeless tobacco: Never Tobacco comments: Quit 20 years ago Substance Use Topics Alcohol use: Not Currently Drug use: No FAMILY HISTORY Problem Relation Age of Onset Hypertension Mother Prostate Cancer Father Pancreatic Cancer Sister No Known Problems Sister No Known Problems Sister No Known Problems Brother ALLERGIES: ALLERGIES No Known Allergies MEDICATIONS: pantoprazole DR (PROTONIX) 40 mg tablet Take 40 mg by mouth twice daily. bisacodyl EC (DULCOLAX) 5 mg EC tablet Take 5 mg by mouth once daily as needed for constipation. inulin 2 gram chew Take 2 tablets by mouth once daily. losartan (COZAAR) 100 mg tablet Take 100 mg by mouth. metoprolol succinate ER (TOPROL XL) 25 mg 24 hr tablet Take 50 mg by mouth twice daily. rivaroxaban (XARELTO) 20 mg tablet Take 20 mg by mouth daily with dinner. metoprolol succinate ER (TOPROL XL) 50 mg 24 hr tablet REVIEW OF SYSTEMS: Review of Systems Constitutional: Positive for malaise/fatigue and weight loss (unintentional; about 55 lbs since late 2021). Negative for chills and fever. Respiratory: Positive for shortness of breath. Negative for cough, hemoptysis, sputum production and wheezing. Cardiovascular: Positive for palpitations. Negative for chest pain, orthopnea, claudication, leg swelling and PND. Gastrointestinal: Negative for abdominal pain, blood in stool, melena, nausea and vomiting. Genitourinary: Negative for hematuria. Musculoskeletal: Negative for falls. Skin: Negative for rash. Neurological: Negative for dizziness, (more content not included)... [facility] Nurse Note 06-19-2023 Aye Ortega LPN - 06/19/2023 11:24 AM EDT Note Date & Type Note Facility 06-19-2023 Nurse Note Patient denies any cardiac complaints or symptoms. Aye Ortega LPN documented in this encounter [facility] History of Present illness Narrative 06-19-2023 Carol Montgomery MD - 06/19/2023 11:20 AM EDT Note Date & Type Note Facility 06-19-2023 History of Presen t illness Narrative PRIMARY CARE PHYSICIAN: Ivan Murphy ([facility]) [address] [place] [address] REFERRING PHYSICIAN: Ann Marie Woodall [address] [place] [address] Patient Care Team: Ivan Murphy MD as PCP - General (Internal Medicine) Ann Marie Woodall MD as Specialty Pattern Duplicator (Cardiology) Friend, Isai Jenkins DO as Specialty Pattern Duplicator (Gastroenterology) Nahun Oh MD as Specialty Pattern Duplicator (Urology) CHIEF COMPLAINT: Evaluation for arrhythmia HISTORY OF PRESENT ILLNESS: Mr. Jett is a 72 year old male who presents today for evaluation of arrhythmia, referred by Dr. oWodall of [facility]. Mr. Jett states that he was diagnosed with atrial fibrillation about 4 years ago. He underwent an arthroscopic procedure for his knee, was noted to have arrhythmia with tachycardia. He was evaluated by a landscape crew member, Dr. Badillo, and was diagnosed with atrial fibrillation. He was treated with various medications for the atrial fibrillation, including at some point amiodarone. He believes that he was on the amiodarone for about 3 years. He was treated with oral anticoagulation medication, Xarelto, but this was discontinued after he had hemorrhage after a colonoscopy. The amiodarone was discontinued in August 2022 when he had elevated liver enzymes. From the GI standpoint, he states that there were issues with his stomach and also an ulcer of the small intestine. He states that he has lost about 55 pounds since September 2022, unintentionally and he attributes this to not feeling well after an antiacid medication was decreased (pantoprazole). He states he quit drinking beer in about September 2022, he had previously been drinking about five or six beers daily. He states that this might also be a reason for the weight loss. At that time he was experiencing chest pain, and was found to have esophagitis and also Sarah's esophagitis. He states he uses a Kardia monitor, and documented atrial fibrillation in the second week of March. He has at times felt poorly, and documented heart rates in the 40s bpm range. He experiences exertional shortness of breath. He denies chest pain, orthopnea, PND, syncope. He has been back on the Xarelto without bleeding issues. He presents now to discuss the treatment options for the atrial fibrillation. I have confirmed and edited as necessary, the PFSH and ROS obtained by others. PAST MEDICAL HISTORY Diagnosis Date Anticoagulant long-term use 06/16/2023 At risk for stroke 06/16/2023 Sarah's esophagus Chest pain Known health problems: none Obese PAF (paroxysmal atrial fibrillation) (HCC) Palpitations Paroxysmal atrial fibrillation (HCC) 06/16/2023 Tobacco abuse Typical atrial flutter (HCC) 06/19/2023 PAST SURGICAL HISTORY Procedure Laterality Date CATARACT EXTRACTION HX Bilateral cataracts DENTAL SURGERY PROCEDURE Dental implants HAND SURGERY HX Right KNEE SURGERY HX Bilateral arthroscopic surgery STRESS TEST NUCLEAR 04/19/2023 [facility] SOCIAL HISTORY Social History Tobacco Use Smoking status: Every Day Packs/day: 1.50 Years: 25.00 Total pack years: 37.50 Types: Cigarettes Smokeless tobacco: Never Tobacco comments: Quit 20 years ago Substance Use Topics Alcohol use: Not Currently Drug use: No FAMILY HISTORY Problem Relation Age of Onset Hypertension Mother Prostate Cancer Father Pancreatic Cancer Sister No Known Problems Sister No Known Problems Sister No Known Problems Brother ALLERGIES: ALLERGIES No Known Allergies MEDICATIONS: pantoprazole DR (PROTONIX) 40 mg tablet Take 40 mg by mouth twice daily. bisacodyl EC (DULCOLAX) 5 mg EC tablet Take 5 mg by mouth once daily as needed for constipation. inulin 2 gram chew Take 2 tablets by mouth once daily. losartan (COZAAR) 100 mg tablet Take 100 mg by mouth. metoprolol succinate ER (TOPROL XL) 25 mg 24 hr tablet Take 50 mg by mouth twice daily. rivaroxaban (XARELTO) 20 mg tablet Take 20 mg by mouth daily with dinner. metoprolol succinate ER (TOPROL XL) 50 mg 24 hr tablet REVIEW OF SYSTEMS: Review of Systems Constitutional: Positive for malaise/fatigue and weight loss (unintentional; about 55 lbs since late 2021). Negative for chills and fever. Respiratory: Positive for shortness of breath. Negative for cough, hemoptysis, sputum production and wheezing. Cardiovascular: Positive for palpitations. Negative for chest pain, orthopnea, claudication, leg swelling and PND. Gastrointestinal: Negative for abdominal pain, blood in stool, melena, nausea and vomiting. Genitourinary: Negative for hematuria. Musculoskeletal: Negative for falls. Skin: Negative for rash. Neurological: Negative for dizziness, focal weakness, seizures and loss of consciousness. PHYSICAL EXAMINATION: BP 138/76 Pulse 75 Ht 6' 0 (1.83m) Wt 192 lb (87.1kg) SpO2 98% BMI 26.03 kg/(m^2). Physical Exam Vitals reviewed. Constitutional: General: He is not in acute distress. Appearance: Normal appearance. HENT: Head: Normocephalic and atraumatic. Cardiovascular: Rate and Rhythm: Normal rate. Rhythm irregularly irregular. Heart sounds: Normal heart sounds, S1 normal and S2 normal. No murmur heard. No friction rub. Pulmonary: Effort: Pulmonary effort is normal. No respiratory distress. Breath sounds: Normal breath sounds. No wheezing, rhonchi or rales. Musculoskeletal: Cervical back: Neck supple. Right lower leg: No edema. Left lower leg: No edema. Skin: General: Skin is warm and dry. Neurological: General: No focal deficit present. Mental Status: He is alert and oriented to person, place, and time. Psychiatric: Mood and Affect: Mood normal. Behavior: Behavior normal. Thought Content: Thought content normal. CARDIOVASCULAR MEDICINE TESTING: Electrocardiogram: Atrial flutter, possibly typical form, with variable AV conduction, average ventricular response rate 94 bpm; QRS duration 88 ms; QTc 467 ms I have personally reviewed the Electrocardiogram. ASSESSMENT/PLAN: 1. Paroxysmal atrial fibrillation (HCC) - ICD9: 427.31, ICD10: I48.0 (primary diagnosis) 2. Typical atrial flutter (HCC) - ICD9: 427.32, ICD10: I48.3 3. Palpitations - ICD9: 785.1, ICD10: R00.2 4. At risk for stroke - ICD9: V15.89, ICD10: Z91.89 5. Anticoagulant long-term use - ICD9: V58.61, ICD10: Z79.01 CHADS2-Vasc Score Breakdown 2 Total Score 1 Age 65-74 years old 1 History of hypertension IMPRESSION: Mr. Jett has symptomatic persistent atrial fibrillation, previously failed amiodarone antiarrhythmic drug therapy due to adverse organ toxic side effect (liver dysfunction). I had a detailed discussion with Mr. Jett regarding atrial fibrillation and its management. I reviewed the cornerstones of management including stroke prevention, ventricular response rate control and atrial rhythm control. He is being appropriately treated with oral anticoagulation for stroke prevention, with what seems to be favorable risk of benefit at this point. Given the symptomatic nature of the arrhythmia, which seems to be atrial fibrillation as well as atrial flutter, a rhythm control treatment strategy is appropriate. He did fail amiodarone previously, he could be considered for other antiarrhythmic drugs or he could be a candidate for atrial fibrillation/atrial flutter catheter ablation. After discussion, Mr. Jett prefers catheter ablation. He had recent cardiac stress test but I do not see a recent echocardiogram. He should have one completed if he has not had one in the past 6 months, as the left atrial dimensions would be important to evaluate, as well as valves function. I had a detailed discussion with Mr. Jett regarding my evaluation and recommendations. After our discussion, Mr. Jett expressed his understanding and I answered all his questions to his apparent satisfaction. He would like to proceed with catheter ablation. He expressed understanding that the procedure is performed without interruption of the oral anticoagulation medication (Xarelto), and that the procedure is performed with the use of general anesthesia. INFORMED CONSENT The risks, benefits and anticipated outcomes of the procedure, the risks and benefits of the alternatives to the procedure and the roles and tasks of the personnel to be involved were discussed with the patient. Consent for the procedure and agreement to proceed has been obtained. I verify that I personally obtained the consent. PLAN AND RECOMMENDATIONS: 1) Schedule catheter ablation procedure 2) Echocardiogram if not performed in past 6 months --- can be completed locally in [place] if patient prefers Carol Montgomery MD 06/19/2023 Medical Decision Making: Problems: Moderate: New problem with uncertain prognosis Data: Unique source(s) for external note(s) reviewed: 3+ Unique test result(s) reviewed: 3+ Unique test(s) ordered: 1 Risk: Moderate: Moderate risk from testing/treatment, Drug management and Decision on minor surgery w/ risk factors Medical Decision Making Level: 4 - Moderate documented in this encounter [facility] History of Present illness Narrative 04-09-2022 Jatin Ellington MD - 04/09/2022 9:29 AM EDT Note Date & Type Note Facility 04-09-2022 History of Present illness Narrative DATE OF SERVICE: 04/09/2022 REASON OF VISIT: Tick bite. HISTORY OF PRESENT ILLNESS: This is a 71-year-old male presenting with tick bite on the back of his leg yesterday. He went out in the [place] to get firewood. The tick was removed by his , but he is concerned some part is left over. He does not have any complaint. No rash. No fever or chills. No body aches. REVIEW OF OTHER SYSTEMS: Normal. ALLERGIES: NKA. MEDICATIONS: List was reviewed. PHYSICAL EXAMINATION: On examination, he is awake, alert, not in distress. No dyspnea. Temperature 97.6, blood pressure 151/72, pulse 68, respirations 18, pulse oximetry 97% on room air. Pain score is a 0 out of 10. Examination of the right popliteal area is the area of tick bite. Small dark spot. I looked under magnification lens. There was no part of the tick seen, but that area is scabbed and slight erythema of the surrounding skin, but there is no tenderness, no pustule, no blister, nontender. The rest of exam was normal. ASSESSMENT: Tick bite right leg in popliteal area. [facility] PATIENT NAME: MAXI JETT [address] [facility] [address] MEDICAL REC #: [id number] [place] [address] [facility] REPORT STATCARE PHYSICIAN PLAN: Clinical findings were discussed with the patient in detail. I explained to him that I do not see any part of the tick left behind, but even if there is a small part left behind, there is no intervention needed. I explained to him regarding prophylactic dose of doxycycline. I prescribed him doxycycline 100 mg to take 2 capsules 1 time with no refills. I also explained to him regarding Lyme disease. If he has any abnormal symptoms, he must follow up with his doctor for further evaluation and care and get evaluated for Lyme disease and then treated accordingly if needed. Patient understands and agrees. His questions were answered to his satisfaction. Jatin Ellington MD [id number] [facility] File#: [id number] END OF DOCUMENT / CHANGE LOG FOLLOWS [facility] PATIENT NAME: MAXI JETT Dr. MEDICAL REC #: [id number] [place] [address] [facility] REPORT STATCARE PHYSICIAN Last Edited By Elec. Signed By Jatin Ellington MD #[id number] Jatin Ellington MD #PAWPR on 04/14/2022 18:56 ET on 04/14/2022 18:56 ET Revision Number - 2 Verified/Reviewed by 04/14/22 1856 ANJALI [facility] PATIENT NAME: MAXI JETT Dr. MEDICAL REC #: [id number] [place] [address] [facility] REPORT STATCARE PHYSICIAN documented in this encounter [facility] History of Past illness Narrative 04-18-2018 Note Date & Type Note Facility documented as of this encounter (statuses as of 06/27/2023) [facility] History of Past illness Narrative 04-18-2018 Note Date & Type Note Facility documented as of this encounter (statuses as of 10/03/2023) [facility] Evaluation note Note Date & Type Note Facility documented in this encounter [facility] Summary Purpose Family History No Family History Records FoundNo Family History Records FoundNo Family History Records FoundNo Family History Records Found Advance Directives No Advanced Directives Records FoundDocuments on File Type Date 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 Advance Directive(s) 04/23/2018 10:18 AM Additional Source Comments (unrecognized sect ion and content) No Status Records FoundNo Status Records FoundNo Status Records FoundNo Status Records Found INFORMATION SOURCE (unrecogn ized section and content) DATE CREATED AUTHOR AUTHOR'S ORGANIZ ATION 04/16/2022 [facility] DATE CREATED AUTHOR AUTHOR'S ORGANIZ ATION 11/01/2022 [facility] DATE CREATED AUTHOR AUTHOR'S ORGANIZ ATION 12/12/2023 [facility] Source Comments (unrecognize d section and content) In the event this informatio n is protected by the Federal Confidentiality of Alcohol and Drug Abuse Patient Records regulations: The Federal rules restrict any use of the information to criminally investigate or prosecute any alcohol or drug abuse patient.[facility] the event this information is protected by the Federal Confidentiality of Alcohol and Drug Abuse Patient Records regulations: The Federal rules restrict any use of the information to criminally investigate or prosecute any alcohol or drug abuse patient.[facility] the event this information is protected by the Federal Confidentiality of Alcohol and Drug Abuse Patient Records regulations: The Federal rules restrict any use of the information to criminally investigate or prosecute any alcohol or drug abuse patient.[facility] the event this information is protected by the Federal Confidentiality of Alcohol and Drug Abuse Patient Records regulations: The Federal rules restrict any use of the information to criminally investigate or prosecute any alcohol or drug abuse patient.[facility] Hospital[facility] the event this information is protected by the Federal Confidentiality of Alcohol and Drug Abuse Patient Records regulations: The Federal rules restrict any use of the information to criminally investigate or prosecute any alcohol or drug abuse patient.[facility] Reason for Visit (unrecogniz ed section and content) Care Teams (unrecognized sec tion and content) 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 Specialty Start Date End Date Ivan Murphy MD [address] [place] [id number] PCP - General Internal Medicine 06/16/23 Ann Marie Woodall MD [address] [facility] [address] [place], [place] [address] Specialty Pattern Duplicator Cardiology 06/16/23 Brock Isai Jenkins DO [address] [facility] [address] [place] [address] Specialty Pattern Duplicator Gastroenterology 06/19/23 Nahun Oh MD [address] [facility] [address] [place], [place] [id number] Specialty Pattern Duplicator Urology 06/19/23 FOR RECORDS PERTAINING TO PATIENTS WHO ARE OR HAVE BEEN ENROLLED IN A CHEMICAL DEPENDENCY/SUBSTANCEABUSE PROGRAM, SOME INFORMATION MAY BE OMITTED. This clinical summary was aggregated from multiple sources. Caution should be exercised in using it in the provision of clinical care. This summary normalizes information from multiple sources, and as a consequence, information in this document may materially change the coding, format and clinical context of patient data. In addition, data may be omitted in some cases. CLINICAL DECISIONS SHOULD BE BASED ON THE PRIMARY CLINICAL RECORDS. [employer] provides no warranty or guarantee of the accuracy or completeness of information in this document.
== END | disposition home or self-care (01) ==
LOC: BIMLAB 13:07
PROVIDERS: PCP Internal Medicine; Visit Provider Internal Medicine
DX: I10 Essential (primary) hypertension (principal); N40.0 Benign prostatic hyperplasia without lower urinary tract symptoms
CPT/HCPCS: 36415; 80053; 84153; 85025; G0103

== ENCOUNTER 2024-02-13 10:45 | Day surgery (SDC) | payer MEDICARE, SELFPAY ==
[2024-02-13 11:06] VITALS: BP 128/59; PULSE 71; RESP 18; TEMP 36.7; O2SAT 100; BMI 27.1
[2024-02-13] MEDS: Lactated Ringers 1,000 ML 15 ML IV (11:13)
--- NOTE | 2024-02-13 12:00 | EGD_PTH ---
PATIENT: ROLANDO JETT LOC: [facility] U#:[id number] AGE/SX: 73/M ROOM: RE02/13/[address]: Dr. Isai Gutiérrez DO : 1950 BED: DIS: 02/13/2024 SPEC #: [id number] RECD: 02/13/24 13:54 STATUS: LACIE NBA #: [id number] ASHA: 02/13/24 12:[address]: Isai Gutiérrez DEPT: SURGICAL PATHOLOGY RECD BY: [place] ENTERED: 02/13/24 14:15 SP TYPE: EGD BIOPSY OT DR: Dr. Ivan Murphy MD Tissues: A - Esophagus, NOS B - Cecum, NOS C - COLON BIOPSY Procedures: Special Stain Group II Surgery Specimen Level IV Alcian Blue/PAS (control) HEADER OPERATION: Colonoscopy with biopsy with hemorrhoid banding PRE-OP DIAGNOSIS: constipation, history of colon polyps, irritable bowel syndrome, Sarah's esophagus acute hemorrhoid TISSUE SUBMITTED: A- Distal esophagus biopsy, B- Cecal polyp biopsy, C- Tattoo area at hepatic flexure biopsy MICROSCOPIC DIAGNOSIS A. Distal esophagus, biopsy; Fragments of gastroesophageal mucosa with chronic inflammation. Intestinal metaplasia (goblet cell metaplasia) not identified. See comment. B. Cecal polyp, biopsy; Tubular adenoma. C. Hepatic flexure, biopsy; Fragments of tubular adenoma. / 02/14/2024 COMMENT A. Alcian blue/PAS stain with matched control is used in the evaluation of the specimen. MICROSCOPIC DESCRIPTION Slides are reviewed. GROSS DESCRIPTION A. Received in fixative is one container labeled with the patient's name and designated Distal esophagus biopsy. The specimen consists of multiple irregular fragments of light jacobson soft tissue that in aggregate measure 0.8 x 0.3 x 0.1 cm. The specimen is totally submitted in one cassette. B. Received in fixative is one container labeled with the patient's name and designated Cecal polyp biopsy. The specimen consists of one irregular fragment of light jacobson soft tissue that measures 0.5 x 0.3 x 0.1 cm. The specimen is totally submitted in one cassette. C. Received in fixative is one container labeled with the patient's name and designated Hepatic flexure biopsy. The specimen consists of multiple irregular fragments of light jacobson soft tissue that in aggregate measure 0.8 x 0.3 x 0.1 cm. The specimen is totally submitted in one cassette. SJ/ 02/13/24 TC:1 CPT: 55136n2,27856
--- NOTE | 2024-02-13 12:14 | HP.PCM_ITS ---
History and Physical Date of Admission: 02/13/24 73 M who presents to the office today for FH sister pancreatic cancer *BGI established .06.10 as follow up from colonoscopy performed at [facility] 04.26.21 with 6 polyps removed, one required submucosal lift procedure but was not completed as he awoke during the procedure. ? Colonoscopy 02.02.23 9mm sigmoid TA polyp; 15mm TA polyp, submucosal lift; 4mm TA polyp; diverticulosis. OV 4.8. constipation continues but would not like to pursue management of this. Requesting refill of lidocaine patches. OV 11.03.22 for management of elevated LFT as found by quality assurance monitor. ? Biochemical CBC, ESR, CMP, LDH, lipase, amylase, haptoglobin, ISAIAH, ammonia, GGTP, celiac, GAME, CHRIS without pertinent abnormality. ? Ferritin H962, ceruloplasmin L13.2, copper L65, AST L095-UHE H190-AP 90, CRP H4.1 ? Stool fat, elastase WNL ? US complete 11.18.22 hepatic measurement 13.5cm with normal echogenicity; minimal gallbladder sludge. ? CT abd/pel 11.18.22 colonic diverticulosis; urinary bladder with inflammatory changes. ? EGD 01.02.23 irregular Zline, Sarah?s; likely benign mass of lesser curvature of stomach, gastritis. H.Pylori negative. ? HIDA .. EF 49%; subtle duodenal-gastric reflux OV 3.3.23 increase PPI to BID. If symptoms persist refer to surgery for possible cholecystectomy r/t gallbladder sludge. ? Biochemical CMP, CRP, CHRIS without pertinent abnormality ? Ferritin H548, AST H74-ALT H104-AP 88 OV 5.30.23 with ongoing symptoms. Start dicyclomine, continue PPI. ? Biochemical CBC, ESR, CMP, CRP, LDH, amylase, lipase, CHRIS, gastrin, hemochromatosis without pertinent abnormality. ? TIBC L240, ferritin H835, AST H53-ALT H81-AP 80 ? Capsule endoscopy 04.27.23 early small bowel ulcer, recommend sucralfate. ? Start sucralfate and hyoscyamine. Stool 05.12.23 calprotectin, elastase, O/P, giardia, EP.? Lactoferrin + OV 7.. with 50lbs weight loss with concern. Feels sucralfate and hyoscyamine cause dysphagia. PPI does help with stomach pain. BM vary between no BM with bloating and loose and formed. Increase PPI to BID, start Cymbalta. Contact 07.05.23 with concern regarding symptoms. Recommend anti-dumping diet; Modified Barium Modified Barium swallow 07.11.23 esophageal dysphagia with residual of vallecula and preforms r/t reduced TB and diminished stripping wave; reduced UES opening; esophageal retention CT abd/pel 9.. (PCP) mild/moderate colonic stool burden; left inguinal hernia; degenerative changes of spine/hips. OV 1.3.24 feels he is doing well overall. Has concern with constipation with LLQ discomfort, relieved by BM, for which he drinks prune juice which he feels is very effective, but does not feel completely evacuated. ROS Const Constitutional: No body ache, chills, excessive sweating, fatigue, fever(s), frequent falls, headache(s), snoring, weakness, sleep problems or change in appetite Eyes Eyes: No blurry vision, change in vision, bulging eyes, floaters, eye pain or Light sensitivity ENT ENT: No abnormal hearing, ear or mastoid pain, tinnitus, balance problems, nosebleed/epistaxis, nasal congestion, headache(s), neck pain or sore throat Resp Respiratory: No cough, excessive phlegm production, pain on inspiration, shortness of breath, snoring or wheezing Cardio Cardiology: No chest pain at rest, chest pain with exertion, excessive sweating, shortness of breath, dyspnea on exertion, lightheadedness, orthopnea or palpitations Gastro GI: Positive for abdominal pain; No change in bowel habits, constipation, cramping, diarrhea, nausea/dyspepsia or vomiting Genitourinary Male: No burning urination, painful urination, urinary incontinence, urinary frequency, suprapubic fullness or side pain Musc Musculoskeletal: No abnormal gait, joint pain, back pain, limited range of motion, neck pain or numbness Skin Skin: No dry skin, redness, lesions, itchy eyes, rash or wounds Neuro Neurology: No abnormal gait, abnormal hearing, behavioral changes, confusion, weakness, frequent falls, headache(s), memory loss or numbness Psych Psychiatric: No anxiety, No behavioral changes, No change in appetite, No confusion, No depression, No memory loss and No Thoughts of harming yourself/Others Endo Endocrine: No cold intolerance, excessive sweating, fatigue, flushing, heat intolerance, increased thirst/drinking or increased hunger Aller/Imm Allergy/Immunologic: No itchy eyes, seasonal allergy symptoms, hives or wheezing Clifford/Lymp Hematologic/Lymphatic: No easy bleeding, easy bruising, enlarged lymph nodes or other Exam Const General: cooperative, comfortable and no acute distress Orientation: alert, awake and oriented x3 HENMT Head: normal to inspection, normocephalic and atraumatic Ears: hearing grossly normal bilaterally Eyes General: appearance normal, both eyes and all related structures Neck Neck: normal visual inspection, full ROM, no lymphadenopathy and supple Neck mass: No Thyroid: thyroid normal Resp Effort & Inspection: normal respiratory effort and able to speak in complete sentences Auscultation: Bilateral: Clear to Auscultation Cardio Rate: regular rate Rhythm: regular rhythm Heart Sounds: S1 normal and S2 normal GI Palpation: soft (Nontender, no palpable organomegaly) Neuro General: patient alert, patient awake, patient oriented x3, moves all extremities and CN's II-XI intact bilaterally Extrem General: no clubbing, cyanosis or edema Psych Appearance: grossly normal Mental Status: mental status grossly normal Mood: congruent mood Affect: normal affect Quality Reporting Tobacco Screening ([facility] 138) Smoking Status: Former smoker Assessment and Plan Assessment and Plan (1) Constipation: Status: Chronic Plan: We will perform a sits marker test on him to see if he has slow transit constipation or pelvic floor dysfunction. I suspect that this low transit constipation as he can go to the bathroom he just takes a lot of osmotic laxatives. (2) History of colon polyps: Status: Resolved Plan: He will need to have repeat colonoscopy within the next year. I told her a submucosal lift in order to remove. He has had antibiotic. That it is dangerous to leave a partially remove the polyp in his colon that needed (3) IBS (irritable bowel syndrome): Status: Inactive Qualifiers: Irritable bowel syndrome type: with constipation Qualified Code(s): K58.1 - Irritable bowel syndrome with constipation Plan: Almost all her symptoms could be attributed to intermittent paroxysmal atrial fibrillation and associated with IBS. I went over specific bowel regimen for him and the PPI therapy they will take twice a day. (4) Sarah's esophagus: Status: Chronic Qualifiers: Sarah's esophagus type: without dysplasia Qualified Code(s): K22.70 - Sarah's esophagus without dysplasia Plan: We will also schedule him for an upper endoscopy. Continue lansoprazole as previously ordered. (5) Acute hemorrhoid: Status: Acute Plan: We will also schedule him for banding during his colonoscopy. Orders: Orders EGD 01/01/24 K22.70 - Sarah's esophagus without dysplasia, K59.00 - Constipation, unspecified Colonoscopy 01/01/24 K22.70 - Sarah's esophagus without dysplasia, K59.00 - Constipation, unspecified I have examined the patient and the H&P has been reviewed. There are no clinical changes since date of exam.
[2024-02-13 12:58] VITALS: BP 128/59; BP 84/62; PULSE 71; RESP 16; TEMP 36.2; O2SAT 100
[2024-02-13 13:00] VITALS: BP 128/59; BP 93/64; PULSE 84; RESP 16; O2SAT 100
--- NOTE | 2024-02-13 13:00 | OP.EGD_ITS ---
Patient Name: Maxi Ji Procedure Date: 02/13/2024 12:28 PM Date of : 1950 Age: 73 Procedure: Upper GI endoscopy Indications: Follow-up of Sarah's esophagus Providers: Isai Gutiérrez DO Medicines: Monitored Anesthesia Care Patient Profile: This is a 73 year old male. Refer to note in patient chart for documentation of history and physical. Patient has symptoms of chronic heartburn and chronic nausea. Complications: No immediate complications. Procedure: Pre-Anesthesia Assessment: - Prior to the procedure, a History and Physical was performed, and patient medications and allergies were reviewed. The patient is competent. The risks and benefits of the procedure and the sedation options and risks were discussed with the patient. All questions were answered and informed consent was obtained. Patient identification and proposed procedure were verified by the physician in the pre-procedure area. Mental Status Examination: alert and oriented. Airway Examination: normal oropharyngeal airway and neck mobility. Respiratory Examination: clear to auscultation. CV Examination: normal. Prophylactic Antibiotics: The patient does not require prophylactic antibiotics. Prior Anticoagulants: The patient has taken no anticoagulant or antiplatelet agents. ASA Grade Assessment: III - A patient with severe systemic disease. After reviewing the risks and benefits, the patient was deemed in satisfactory condition to undergo the procedure. The anesthesia plan was to use monitored anesthesia care (MAC). Immediately prior to administration of medications, the patient was re-assessed for adequacy to receive sedatives. The heart rate, respiratory rate, oxygen saturations, blood pressure, adequacy of pulmonary ventilation, and response to care were monitored throughout the procedure. The physical status of the patient was re-assessed after the procedure. After obtaining informed consent, the endoscope was passed under direct vision. Throughout the procedure, the patient's blood pressure, pulse, and oxygen saturations were monitored continuously. The gastroscope was introduced through the mouth, and advanced to the second part of duodenum. The upper GI endoscopy was accomplished without difficulty. The patient tolerated the procedure well. Scope In: 12:28:30 PM Scope Out: 12:33:20 PM Total Procedure Duration Time 0 hours 4 minutes 50 seconds Findings: There were esophageal mucosal changes secondary to established short-segment Sarah's disease present in the lower third of the esophagus. The maximum longitudinal extent of these mucosal changes was 3 cm in length. Mucosa was biopsied with a cold forceps for histology in a targeted manner at intervals of 1 cm in the lower third of the esophagus. A total of 2 specimen bottles were sent to pathology. Verification of patient identification for the specimen was done. The entire examined stomach was normal. The duodenal bulb was normal. Impression: - Esophageal mucosal changes secondary to established short-segment Sarah's disease. Biopsied. - Normal stomach. - Normal duodenal bulb. Recommendation: - Await pathology results. - Continue present medications. Procedure Code(s): --- Professional --- 64552, Esophagogastroduodenoscopy, flexible, transoral; with biopsy, single or multiple CPT copyright 2021 [employer]. All rights reserved. The codes documented in this report are preliminary and upon sheet rock nailer review may be revised to meet current compliance requirements. Isai Gutiérrez DO 02/13/2024 1:00:16 PM This report has been signed electronically. Number of Addenda: 0 Note Initiated On: 02/13/2024 12:28 PM
--- NOTE | 2024-02-13 13:01 | OP.CCLET_ITS ---
02/13/2024 Ivan Murphy MD [address] [place] [address] [place] [address] Re : Upper GI endoscopy procedure for Maxi Ji Dear Dr. Murphy This procedure was performed on Tuesday, February 13, 2024. My impressions and recommendations are as follows: Impressions : - Esophageal mucosal changes secondary to established short-segment Sarah's disease. Biopsied. - Normal stomach. - Normal duodenal bulb. Recommendations : - Await pathology results. - Continue present medications. My findings are described in the full procedure note, which is enclosed. If I can be of further assistance, please feel free to contact me at . Sincerely, Isai Gutiérrez, 02/13/2024 1:00:16 PM This report has been signed electronically.
--- NOTE | 2024-02-13 13:04 | OP.CCLET_ITS ---
02/13/2024 Ivan Murphy MD [address] [place] [address] [place] [address] Re : Colonoscopy procedure for Maxi Ji Dear Dr. Murphy This procedure was performed on Tuesday, February 13, 2024. My impressions and recommendations are as follows: Impressions : - Non-bleeding internal hemorrhoids. Banded. - Diverticulosis in the sigmoid colon, in the descending colon, at the splenic flexure and in the ascending colon. - One 3 mm polyp in the cecum, removed with a cold snare. Resected and retrieved. - A tattoo was seen at the hepatic flexure. A post-polypectomy scar was found at the tattoo site. Biopsied. Recommendations : - Discharge patient to home. - Repeat colonoscopy in 5 years for surveillance. - Continue present medications. My findings are described in the full procedure note, which is enclosed. If I can be of further assistance, please feel free to contact me at . Sincerely, Isai Gutiérrez, 02/13/2024 1:04:18 PM This report has been signed electronically.
--- NOTE | 2024-02-13 13:04 | OP.COLON_ITS ---
Patient Name: Maxi Ji Procedure Date: 02/13/2024 12:33 PM Date of : 1950 Age: 73 Procedure: Colonoscopy Indications: High risk colon cancer surveillance: Personal history of colonic polyps Providers: Isai Gutiérrez DO Medicines: Monitored Anesthesia Care Patient Profile: This is a 73 year old male. Refer to note in patient chart for documentation of history and physical. Patient has symptoms of chronic heartburn and chronic nausea. Last Colonoscopy: date unknown. Unable to locate last colonoscopy report. Complications: No immediate complications. Procedure: Pre-Anesthesia Assessment: - Prior to the procedure, a History and Physical was performed, and patient medications and allergies were reviewed. The patient is competent. The risks and benefits of the procedure and the sedation options and risks were discussed with the patient. All questions were answered and informed consent was obtained. Patient identification and proposed procedure were verified by the physician in the pre-procedure area. Mental Status Examination: alert and oriented. Airway Examination: normal oropharyngeal airway and neck mobility. Respiratory Examination: clear to auscultation. CV Examination: normal. Prophylactic Antibiotics: The patient does not require prophylactic antibiotics. Prior Anticoagulants: The patient has taken no anticoagulant or antiplatelet agents. ASA Grade Assessment: III - A patient with severe systemic disease. After reviewing the risks and benefits, the patient was deemed in satisfactory condition to undergo the procedure. The anesthesia plan was to use monitored anesthesia care (MAC). Immediately prior to administration of medications, the patient was re-assessed for adequacy to receive sedatives. The heart rate, respiratory rate, oxygen saturations, blood pressure, adequacy of pulmonary ventilation, and response to care were monitored throughout the procedure. The physical status of the patient was re-assessed after the procedure. After I obtained informed consent, the scope was passed under direct vision. Throughout the procedure, the patient's blood pressure, pulse, and oxygen saturations were monitored continuously. The Colonoscope was introduced through the anus and advanced to the cecum, identified by appendiceal orifice and ileocecal valve. The colonoscopy was performed without difficulty. The patient tolerated the procedure well. The quality of the bowel preparation was adequate. The ileocecal valve, appendiceal orifice, and rectum were photographed. Scope In: 12:35:15 PM Scope Withdrawal Time 0 hours 11 minutes 10 seconds Scope Out: 12:50:11 PM Total Procedure Duration Time 0 hours 14 minutes 56 seconds Findings: The perianal and digital rectal examinations were normal. Non-bleeding internal hemorrhoids were found during retroflexion. The hemorrhoids were medium-sized and Grade II (internal hemorrhoids that prolapse but reduce spontaneously). A hemorrhoid was isolated with anoscopy. The ShortShot ligator was positioned over the hemorrhoid at the left lateral position. Suction was applied and one rubber band was placed over the hemorrhoid. This was checked to make certain that the muscularis was free of the band. Digital rectal manipulation was necessary to achieve an optimal post-banding position. There were no complications. Multiple small and large-mouthed diverticula were found in the sigmoid colon, descending colon, splenic flexure and ascending colon. A 3 mm polyp was found in the cecum. The polyp was sessile. The polyp was removed with a cold snare. Resection and retrieval were complete. Verification of patient identification for the specimen was done. Estimated blood loss was minimal. A tattoo was seen at the hepatic flexure. A post-polypectomy scar was found at the tattoo site. Biopsies were taken with a cold forceps for histology. Verification of patient identification for the specimen was done. Estimated blood loss was minimal. Impression: - Non-bleeding internal hemorrhoids. Banded. - Diverticulosis in the sigmoid colon, in the descending colon, at the splenic flexure and in the ascending colon. - One 3 mm polyp in the cecum, removed with a cold snare. Resected and retrieved. - A tattoo was seen at the hepatic flexure. A post-polypectomy scar was found at the tattoo site. Biopsied. Recommendation: - Discharge patient to home. - Repeat colonoscopy in 5 years for surveillance. - Continue present medications. Procedure Code(s): --- Professional --- 55715, Colonoscopy, flexible; with removal of tumor(s), polyp(s), or other lesion(s) by snare technique 04120, Colonoscopy, flexible; with band ligation(s) (eg, hemorrhoids) 36193, 59, Colonoscopy, flexible; with biopsy, single or multiple CPT copyright 2021 [employer]. All rights reserved. The codes documented in this report are preliminary and upon team cdl driver review may be revised to meet current compliance requirements. Isai Gutiérrez DO 02/13/2024 1:04:18 PM This report has been signed electronically. Number of Addenda: 0 Note Initiated On: 02/13/2024 12:33 PM
[2024-02-13 13:05] VITALS: BP 109/64; BP 128/59; PULSE 72; RESP 16; O2SAT 100
[2024-02-13 13:10] VITALS: BP 114/69; BP 128/59; PULSE 70; RESP 16; TEMP 36.4; O2SAT 100
[2024-02-13 13:25] VITALS: BP 128/59
== END 2024-02-13 13:30 | disposition home or self-care (01) ==
LOC: EN 10:46 → AC 10:47
PROVIDERS: PCP Internal Medicine; Referring Provider Internal Medicine; Visit Provider Internal Medicine Gastroenterology
PROC: 0DJD8ZZ Inspection of Lower Intestinal Tract, Via Natural or Artificial Opening Endoscopic (ICD-10-PCS; CPT 45378; principal; 2024-02-13 11:55)
DX: K22.70 Barrett's esophagus without dysplasia (principal); Z86.010 Personal history of colon polyps; K57.30 Diverticulosis of large intestine without perforation or abscess without bleeding; K64.1 Second degree hemorrhoids; K58.1 Irritable bowel syndrome with constipation; K59.00 Constipation, unspecified; D12.0 Benign neoplasm of cecum; D12.3 Benign neoplasm of transverse colon
CPT/HCPCS: 45380; 45385; 45398; 43239; 88305; 88313; J7120; J2405

== ENCOUNTER → 2024-07-19 | Outpatient (CLI) | payer MEDICARE, SELFPAY ==
[2024-07-19 12:30] LABS: Absolute Lymphocyte Count 1.53 X10^3/uL (0.83-4.51); Basophil# 0.02 X10^3/uL; Basophil% 0.4 % (0-1); Eosinophils% 1.9 % (0-5); Hemoglobin 13.6 g/dL (13.0-16.5); Lymphocyte # 1.53 X10^3/ul (0.83-4.51); Lymphocyte % 29.4 % (19-41); Mean Corp Hgb Conc 32.4 g/dL (32-36); Mean Corpuscular Hgb 29.1 pg (27.0-32.0); Mean Corpuscular Volume 89.7 fL (80-94); Mean Platelet Vol. 9.7 fl (6.2-12.0); Monocyte# 0.53 X10^3/uL; Monocyte% 10.2 % (0-10); NRBC Flagged by Analyzer 0 % (0-5); Neutrophil # 3.01 X10^3/uL (2.7-7.7); Neutrophil % 57.7 % (47-70); Platelet Count 186 K/mm3 (150-450); RBC Distribution Width SD 42.4 fl (35.1-43.9); Red Blood Count 4.68 M/mm3 (4.6-6.2); White Blood Count 5.2 K/mm3 (4.4-11.0)
[2024-07-19 12:56] LABS: ALB/GLOB Ratio 1.1 RATIO (0.9-2.4); AST(SGOT) 27 U/L (15-37); Alanine Aminotransfer ALT/SGPT 38 U/L (16-61); Albumin, Serum 3.6 g/dL (3.2-5.0); Alkaline Phosphatase 107 U/L (45-117); Anion Gap 6 (5-15); BUN 16 mg/dL (7-18); BUN/Creat Ratio 14.3 RATIO (10-20); Calcium,Total 9.4 mg/dL (8.5-10.1); Chloride 107 mmol/L (98-107); Cholesterol 174 mg/dL (200); Creatinine, Serum 1.12 mg/dL (0.70-1.30); EST Glomerular Filtration Rate 68 mL/min (>60); Est Glom Filt Rate - Afr Amer 82 mL/min (>60); Globulin 3.4 g/dL (2.2-4.2); Glucose 110 mg/dL (74-106); High Density Lipoprotein 56 mg/dL; Potassium 4.8 mmol/L (3.5-5.1); Sodium Level 140 mmol/L (136-145); Triglycerides 89 mg/dL; Very Low Density Lipoprotein 18 mg/dL (5-40)
== END | disposition home or self-care (01) ==
LOC: BIMLAB 08:07
PROVIDERS: PCP Internal Medicine; Visit Provider Internal Medicine
DX: I10 Essential (primary) hypertension (principal)
CPT/HCPCS: 36415; 80053; 80061; 85025

== ENCOUNTER → 2024-11-18 | Outpatient (CLI) | payer MEDICARE, SELFPAY ==
[2024-11-18 13:37] LABS: Anion Gap 6 (5-15); BUN 20 mg/dL (7-18); BUN/Creat Ratio 18.2 RATIO (10-20); Calcium,Total 9.5 mg/dL (8.5-10.1); Chloride 106 mmol/L (98-107); EST Glomerular Filtration Rate 70 mL/min (>60); Est Glom Filt Rate - Afr Amer 84 mL/min (>60); Glucose 79 mg/dL (74-106); PSA,Total- Diagnostic 0.22 ng/mL (0.0-4.0); Potassium 3.9 mmol/L (3.5-5.1); Sodium Level 140 mmol/L (136-145)
== END | disposition home or self-care (01) ==
LOC: BIMLAB 08:13
PROVIDERS: PCP Internal Medicine; Referring Provider Internal Medicine; Visit Provider Internal Medicine
DX: I10 Essential (primary) hypertension (principal); N40.0 Benign prostatic hyperplasia without lower urinary tract symptoms
CPT/HCPCS: 36415; 80048; 84153

== ENCOUNTER → 2025-02-10 | Outpatient (CLI) | payer MEDICARE, SELFPAY ==
[2025-02-10 18:17] LABS: PSA,Total - Annual Screen 0.22 ng/mL (0.02-4.00)
== END | disposition home or self-care (01) ==
LOC: LAB 10:53
PROVIDERS: PCP Internal Medicine; Referring Provider Nurse Practitioner; Visit Provider Nurse Practitioner
DX: Z12.5 Encounter for screening for malignant neoplasm of prostate (principal)
CPT/HCPCS: 36415; 84153; G0103

== ENCOUNTER → 2025-09-18 | Outpatient (CLI) | payer MEDICARE, SELFPAY ==
[2025-09-18 11:06] LABS: Hematocrit 43.5 % (40-54); Hemoglobin 14.8 g/dL (13.0-16.5); Immature Granulocytes Count 0.030 X10^3/uL (0.0-0.0); Mean Corp Hgb Conc 34.0 g/dL (32-36); Mean Corpuscular Volume 88.8 fL (80-94); Mean Platelet Vol. 9.1 fl (6.2-12.0); NRBC Flagged by Analyzer 0 % (0-5); Platelet Count 197 K/mm3 (150-450); RBC Distribution Width CV 12.9 % (11.6-14.6); RBC Distribution Width SD 41.8 fl (35.1-43.9); Red Blood Count 4.90 M/mm3 (4.6-6.2); White Blood Count 6.2 K/mm3 (4.4-11.0)
[2025-09-18 11:39] LABS: AST(SGOT) 36 U/L (<=37); Alanine Aminotransfer ALT/SGPT 41 U/L (<=46); Albumin, Serum 4.3 g/dL (3.4-4.8); Alkaline Phosphatase 83 U/L (40-129); Anion Gap 11 (5-15); BUN 19 mg/dL (4-19); BUN/Creat Ratio 17.9 RATIO (10-20); Calcium,Total 9.9 mg/dL (7.6-11.0); Carbon Dioxide 25.9 mmol/L (21.0-32.0); Chloride 102 mmol/L (98-108); Cholesterol 195 mg/dL (<=200); Globulin 3.0 g/dL (2.2-4.2); Glucose 101 mg/dL (70-99); Low Density Lipoprotein Calc. 97 mg/dL; Potassium 4.0 mmol/L (3.3-5.1); Triglycerides 289 mg/dL; Very Low Density Lipoprotein 58 mg/dL (5-40); cholesterol:hdl ratio screen 3.93
== END | disposition home or self-care (01) ==
LOC: LAB 10:27
PROVIDERS: PCP Internal Medicine; Referring Provider Internal Medicine; Visit Provider Internal Medicine
DX: I10 Essential (primary) hypertension (principal)
CPT/HCPCS: 36415; 80053; 80061; 85025